=== PATIENT | female | born 1950 | race Caucasian/White ===

== ENCOUNTER 2024-07-25 09:44 | Outpatient (RCR) | payer MEDICARE, SELFPAY | END 2024-07-25 19:00 | disposition home or self-care (01) | LOC: PT 09:44 | PROVIDERS: PCP Nurse Practitioner; Visit Provider Nurse Practitioner | DX: M51.369 Other intervertebral disc degeneration, lumbar region without mention of lumbar back pain or lower extremity pain (principal) | CPT/HCPCS: 97010; 97014; 97110; 97140; 97162 ==

== ENCOUNTER 2024-07-26 08:05 | Outpatient (RCR) | payer MEDICARE, SELFPAY | END 2024-12-20 07:45 | disposition home or self-care (01) | LOC: PT 08:05 | PROVIDERS: PCP Nurse Practitioner; Visit Provider Nurse Practitioner | DX: M51.369 Other intervertebral disc degeneration, lumbar region without mention of lumbar back pain or lower extremity pain (principal); M54.2 Cervicalgia | CPT/HCPCS: 97010; 97012; 97110; 97113; 97140; G0283 ==

== ENCOUNTER 2025-06-29 10:30 | Outpatient (OUT) | payer MEDICARE, SELFPAY ==
--- OUTSIDE RECORDS SUMMARY | 2025-06-29 10:37 | XMS_ITS | CCD ---
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 Unavailable Unavailable Noonan, Shaylee T. Unavailable Unavailable Noonan, Shaylee T. Unavailable Unavailable CEDILLO, DANILO Unavailable Unavailable CEDILLO, DANILO Unavailable Unavailable CEDILLO, DANILO Unavailable Unavailable CEDILLO, DANILO Unavailable Unavailable Noonan, Shaylee T. Unavailable Unavailable Noonan, Shaylee T. Unavailable Unavailable Noonan, Shaylee T. Unavailable Unavailable CEDILLO, DANILO Unavailable Unavailable Noonan, Shaylee T. Unavailable Unavailable Noonan, Shaylee T. Unavailable Unavailable Noonan, Shaylee T. Unavailable Unavailable CEDILLO, DANILO Unavailable Unavailable CEDILLO, DANILO J Referring Unavailable CEDILLO, DANILO J Primary Care Unavailable Cedillo DIE GRINDER-ROCK CLIMBING INSTRUCTOR, Danilo J Primary Care Provid er Cedillo DIE GRINDER-ROCK CLIMBING INSTRUCTOR, Danilo Sonia Primary Care Provid er Cedillo RETAIL EQUIPMENT ASSOCIATE, Danilo Unavailable Daksha Moon MD Primary Care Provider [phone] Daksha Moon DO Primary Care Provider Jacqueline Avila APRN Attending Provider Daksha Moon DO Primary Care Provider [phone] Daksha Moon MD Primary Care Provider HEMANTH MAXWELL Attending Unavailable FAMILIA CEDILLOERIE J Referring Unavailable CEDILLOFAMILIA BROWNERIE J Primary Care Unavailable DANILO CEDILLO J Attending Unavailable CEDILLOFAMILIA BROWNERIE J Referring Unavailable CEDILLO, DANILO J Primary Care Unavailable CEDILLOLENNY BROWNE J Attending Unavailable CEDILLO, DANILO J Referring Unavailable CEDILLO, DANILO J Primary Care Unavailable DAKSHA MOON Attending Unavailable DANILO CEDILLO Referring Unavailable DAKSHA MOON Primary Care Unavailable DAKSHA MOON Attending Unavailable YUDARENSDAKSHA Referring Unavailable YUHAS, DAKSHA Miller Primary Care Unavailable CEDILLODANILO Referring Unavailable YUHAS, DAKSHA Miller Primary Care Unavailable CEDILLO, DANILO J Referring Unavailable CEDILLO, DANILO J Primary Care Unavailable CEDILLO, DANILO J Referring Unavailable CEDILLO, DANILO J Primary Care Unavailable SAMANTHA ZAMARRIPA Attending Unavailable CEDILLO, DANILO J Referring Unavailable CEDILLO, DANILO J Primary Care Unavailable CEDILLO, DANILO J Referring Unavailable CEDILLO, DANILO J Primary Care Unavailable DALLIN, SINGH N Referring Unavailable YUHAS, DAKSHA Miller Primary Care Unavailable YUDAKSHA STEVENS Attending Unavailable YUHAS, DAKSHA Miller Referring Unavailable YUHAS, DAKSHA Miller Primary Care Unavailable DALLIN, SINGH N Referring Unavailable YUHAS, DAKSHA Miller Primary Care Unavailable DALLIN, SINGH N Referring Unavailable YUHAS, DAKSHA Miller Primary Care Unavailable Libans Daksha RENEE Primary Care Provider [phone] SHAYLEE NOONAN Referring Unavailable NOONAN, SHAYLEE Moore Referring Unavailable SHAYLEE NOONAN Attending Unavailable EDY ANDREWS Attending Unavailable PRIYANK VANCE Referring Unavailable TIMMIEDY Wall Referring Unavailable TIMEDY DAVIS Attending Unavailable Allergies Allergy ClassificationReported Allergen(s)Allergy TypeDate of OnsetReaction(s) Facility (1 source)Bee/Wasp/Ant venom; Translations: [Bee Stings]Propensity to adverse reactions (disorder)[facility] (1 source)Cat; Translations: [Cats]Propensity to adverse reactions (disorder) [facility] (1 source)cimetidine; Translations: [Tagamet]Drug AllergyBl[facility] (20 sources)ibuprofen; Translations: [ibuprofen]Drug Kngtdlz66-55-0886Hprxt, RashBlanchard Valley Health System [facility] (17 sources)oxytetracycline; Translations: [Terramycin]Drug Janilxn55-34-4756 [facility] (19 sources)Shrimp product; Translations: [Shrimp]Propensity to adverse reactions (disorder)88-98-2686Hgmlrv, Syncope, GI DisturbanceBlanchard Valley Health System [facility] (1 source)Sulfonamides (Antibiotic); Translations: [sulfa drugs]Propensity to adverse reactions (disorder)[facility] (17 sources)almond allergenic extract; Translations: [ALMOND]Drug Allergy 73-73-3030NjsuuhlfZioVkzyth Repository (20 sources)Cimetidine; Translations: [CIMETIDINE]Drug Iebsipw16-07-8016Mjaib, Itching, RashPro[facility]ica Rep[facility] (18 sources)Ketorolac; Translations: [KETOROLAC]Drug Uznifzu16-09-6975Dqlvu, Itching, RashProMedica Repository (20 sources)Oxytetracycline; Translations: [OXYTETRACYCLINE]Drug Allergy 32-53-2560Dfrzeqe ReactionProMedica RepositoryComment on above:as a child (17 sources)Ragweed pollen; Translations: [RAGWEED POLLEN]Propensity to adverse reactions to drug (disorder)09-17-9480Eprae (See Comments)[facility] (13 sources)Shellfish; Translations: [SHELLFISH DERIVED]Propensity to adverse reactions to food (disorder)06-77-3715QwaHnijzd Repository (17 sources)Sulfonamides (Antibiotic); Translations: [SULFA (SULFONAMIDE ANTIBIOTICS)]Propensity to adverse reactions to drug (disorder)82-60-6087Bgfgw [facility] (16 sources)BEE VENOM PROTEIN (HONEY BEE); Translations: [BEE VENOM PROTEIN (HONEY BEE)]Propensity to adverse reactions to drug (disorder)07-08-2020 Shortness Of BreathPro[facility]ica Repository (19 sources)CAT DANDER; Translations: [CAT DANDER]Propensity to adverse reactions to drug (disorder)71-47-2001Ycoyieudj Of BreathProMedica Repository (20 sources)ALMOND OIL; Translations: [ALMOND OIL]Propensity to adverse reactions to food (disorder)10-60-6407PevxsqknVpyQobfzo Repository (8 sources)Honey bee venomPropensity to adverse psibycpsr93-52-2751Wnxslfkyc of breathNOMS Healthcare (8 sources)Shrimp productPropensity to adverse wqvmzalib78-82-7747Fwsfld Only [facility] (8 sources)Sulfonamides (Antibiotic)Drug Oxxbqhgpaio02-30-0122JhcxlNRDJ Healthcare (8 sources)Flavoring Agent (Non-Screening)Allergy to niuxiosas20-23-1282QZAF Healthcare (5 sources)Shellfish-Derived ProductsDrug Zifiwaa71-15-4447UKWA [facility] (1 source)venom-honey beeAllergy to -58-9558Bqsjydlevb Breathing [facility] (3 sources)Shellfish Protein-Containing Drug ProductsDrug Vopecub51-10-0796WMLV Healthcare Medications Current Medications MedicationDrug Class(es)DatesSig (Normalized)Sig (Original)albuterol 0.83 mg/ml inhalation solution (20 sources)beta2-Adrenergic AgonistStart: 73-47-7804khkc 2.5 mg by inhalation every four to six hours as neededAlbuterol Sulfate 2.5 mg /3 mL (0.083 %) solution for nebulization Active 2.5 MG INHALATION EVERY 4-6 HOURS as needed March 28, 2025 12:00am Complies with drug therapyStart: 41-39-7473cbjl 1 puff(s) by inhalation every six hours as neededAlbuterol Sulfate 90 mcg/actuation HFA aerosol inhaler Active 2 PUFF INHALATION Every 6 hours as nee ded March 28, 2025 12:00am Complies with drug therapyStart: 86-68-3412fczz 2 puff(s) by inhalation every six hours as needed for wheezingalbuterol (PROVENTIL HFA;VENTOLIN HFA) 90 mcg/actuation inhaler Indications: Moderate persistent asthma with allergic rhinitis without complication Inhale 2 puffs every 6 (six) hours as needed for wheezing or shortness of breath. 18 g 6 10/30/2024 ActiveStart: 12-14-2023 End: 17-25-9304fxzb 3 mL by inhalation every four hours as needed for wheezing albuterol (PROVENTIL,VENTOLIN) 2.5 mg /3 mL (0.083 %) nebulizer solution Indications: Moderate persistent allergic asthma Inhale 3 mL (2.5 mg total) by nebulization every 4 (four) hours as needed forwheezing or shortness of breath. 150 mL 2 12/14/2023 05/07/2025 Discontinued (Therapy completed)Start: 11-22-2023 End: 03-84-3596sosj 2 puff(s) by mouth every six hours as needed for wheezing albuterol (PROVENTIL HFA;VENTOLIN HFA) 90 mcg/actuation inhaler Indications: Moderate persistent asthma with allergic rhinitis without complication INHALE 2 PUFFS BY MOUTH EVERY 6 HOURS NEEDED FORWHEEZING and SHORTNESS OF BREATH 18 g 6 11/22/2023 10/30/2024 Discontinued (Reorder)Start: 71-03-4296oadkgepoa HFA 90 mcg/act inhaler 07/16/2022 Activeamoxicillin 500 mg oral capsule (2 sources)Penicillin-class AntibacterialStart: 08-31-2024 End: 72-18-2046mska 1 capsule by mouth in the morning, then take 1 capsule by mouth at bedtimeamoxicillin (AMOXIL) 500 mg capsule Take 1 capsule (500 mg total) by mouth in the morning and 1 capsule (500 mg total) before bedtime. Do all this for 10 days. 20 capsule 08/31/2024 09/10/2024 Activeamoxicillin 875 mg / clavulanate 125 mg oral tablet (11 sources)Penicillin-class AntibacterialStart: 04-17-2025 End: 28-62-3139selz 1 tablet by mouth in the morningamoxicillin-clavulanate (Augmentin) 875-125 MG tablet Indications: Chronic maxillary sinusitis , Chronic ethmoidal sinusitis Take 1 tablet (875 mg) by mouth in the morning and 1 tablet (875 mg) before bedtime. 60 tablet 04/17/2025 05/23/2025 Discontinued (Therapy completed)Start: 04-17-2025 End: 07-99-0474gfyd 1 tablet by mouth once in the morningamoxicillin-pot clavulanate (AUGMENTIN) 875-125 mg per tablet Take 1 tablet by mouth in the morningand 1 tablet before bedtime. 04/17/2025 05/17/2025 ActiveStart: 03-28-2025 End: 19-64-6876dfav 1 tablet by mouth onceamoxicillin-pot clavulanate (AUGMENTIN) 875-125 mg per tablet Take 1 tablet by mouth. 03/28/2025 04/04/2025 Discontinued (Therapy completed)Start: 94-88-0954iosm 1 tablet by mouth every twelve hoursAmoxicillin-Pot Clavulanate 875-125 mg tablet Active 1 TAB PO Every 12 hours 05 02March 28, 2025 12:00am Complies with drug therapyStart: 09-12-2024 End: 02-64-0762jwam 1 tablet by mouth once in the morningamoxicillin-pot clavulanate (AUGMENTIN) 875-125 mg per tablet Indications: Acute non-recurrent maxillary sinusitis Take 1 tablet by mouth in the morning and 1 tablet before bedtime. Do all this for 7days. 14 tablet 09/12/2024 09/19/2024 Activeazelastine hydrochloride 0.137 mg/actuat metered dose nasal spray (9 sources)Histamine-1 Receptor AntagonistStart: 56-42-7445khze 2 spray(s) nasal route in the morningazelastine (Astelin) 0.1 % nasal spray Administer 2 sprays into affected nostril(s) in the morning and 2 sprays in the evening. 04/04/2025 ActiveStart: 04-04-2025 End: 70-23-0936pnsa 2 spray(s) nasal route in the morningazelastine (ASTELIN) 137 mcg (0.1 %) nasal spray Indications: Chronic pansinusitis Administer 2 spra ys into each nostril in the morning and 2 sprays before bedtime. Use in each nostril as directed. 30 mL 2 04/04/2025 05/07/2025 Discontinued (Therapy completed)bempedoic acid 180 mg / ezetimibe 10 mg oral tablet (5 sources)Dietary Cholesterol Absorption InhibitorStart: 00-95-3050sjci 1 tablet by mouth in the morningBempedoic Acid-Ezetimibe (Nexlizet) 180-10 MG tablet Take 1 tablet by mouth in the morning. 05/07/2025 Activecalcium carbonate 1250 mg / cholecalciferol 200 unt oral tablet (17 sources)Vitamin D End: 81-77-9918owjm 1 tablet by mouth once in the morning, then take 1 tablet by mouth once at mealtimeCalcium Carbonate-Vitamin D (Oyster Shell Calcium/D) 500-5 MG-MCG tablet Take 1 tablet by mouth in the morning and 1 tablet in the evening. Take with meals. 05/23/2025 Discontinued (Therapy completed)cetirizine hydrochloride 10 mg oral tablet (10 sources)Histamine-1 Receptor AntagonistStart: 04-17-2025 End: 09-40-5763ipop 1 tablet by mouth once daily as neededcetirizine (ZyrTEC) 10 MG tablet Indications: Chronic maxillary sinusitis , Chronic ethmoidal sinusitis Take 1 tablet (10 mg) by mouth Daily as needed for allergies 30 tablet 11 04/17/2025 04/17/2026ctiveciclopirox 80 mg/ml topical solution (2 sources)Start: 07-15-2023 End: 86-94-4946knrsroumzy (Penlac) 8 % solution Apply 1 Application topically at bedtime 07/15/2023 02/23/2025 Dmfseovrjvxi48 hr clarithromycin 500 mg extended release oral tablet (1 source)Macrolide AntimicrobialStart: 04-05-2025 End: 39-50-4781zqxf 2 tablets by mouth every twenty-four hours in the morning clarithromycin XL (BIAXIN XL) 500 mg 24 hr tablet Indications: Chronic pansinusitis Take 2 tablets (1,000 mg total) by mouth in the morning for 7 days. 14 tablet 04/05/2025 04/12/2025 Activedoxycycline hyclate 100 mg oral capsule (7 sources)Tetracycline-class DrugStart: 04-04-2025 End: 45-54-4363gxnd 1 capsule by mouth in the morning, then take 1 capsule by mouth at bedtimedoxycycline (VIBRAMYCIN) 100 mg capsule Indications: Chronic pansinusitis Take 1 capsule (100 mg total) by mouth in the morning and 1 capsule (100 mg total) before bedtime. Do all this for 7 days. 14capsule 04/04/2025 04/11/2025 Activedoxycycline (Vibramycin) 100 MG capsule Take 100 mg by mouth in the morning and 100 mg before bedtime. Take with at least 8 ounces (large glass) of water, do not lie down for 30 minutes after. Activefluticasone propionate 0.05 mg/actuat metered dose nasal spray (20 sources)CorticosteroidStart: 04-17-2025 End: 74-47-8280hwwh 2 spray(s) nasal route once dailyfluticasone (Flonase) 50 MCG/ACT nasal spray Indications: Chronic maxillary sinusitis , Chronic ethmoidal sinusitis Administer 2 sprays into each nostril Daily Shake gently. Before first use, prime pump. After use, clean tip and replace cap. 48 g 3 04/17/2025 04/17/2026 ActiveStart: 10-87-0000jjrl 1 spray(s) nasal route once daily Fluticasone Propionate (Flonase Allergy Relief) 50 mcg/actuation spray,suspension Active 1 SPRAY INTRANASAL Daily March 28, 2025 12:00am administer into each nostril Complies with drug therapyStart: 05-69-5891omlo 1 spray(s) nasal route in the morningfluticasone propionate (FLONASE) 50 mcg/actuation nasal spray Indications: Chronic allergic rhinitis due to pollen Administer 1 spray into each nostril in the morning. 16 g 6 03/11/2022 Active End: 94-20-8973alec 1 spray(s) nasal route once dailyfluticasone (Flonase) 50 MCG/ACT nasal spray Administer 1 spray into each nostril Daily Shake gently. Before first use, prime pump. After use, clean tip and replace cap. 04/17/2025 Bysxtmixzgzb77 actuat fluticasone furoate 0.1 mg/actuat / umeclidinium 0.0625 mg/actuat / vilanterol 0.025 mg/actuat dry powder inhaler (20 sources)Anticholinergic, Corticosteroid, beta2-Adrenergic AgonistStart: 04-04-2025 End: 28-22-3349afbz 1 puff(s) by inhalation in the morning Utziaywcbbw-Xbyrcorgl-Hpyrvn (Trelegy Ellipta) 100-62.5-25 MCG/ACT aerosol powder Inhale 1 puff in the morning. 04/04/2025 ActiveStart: 12-14-2023 End: 36-00-7944rhjy 1 puff(s) by inhalation once daily odvudwhlfhh-toquinecb-fqjfjzzp (TRELEGY ELLIPTA) 100-62.5-25 mcg blister with device Indications: Moderate persistent asthma with allergic rhinitis without complication Inhale 1 puff once daily. 1 each 10/30/2024 04/04/2025 Discontinued Start: 03-15-2023 End: 38-03-4310oqas 1 puff(s) by inhalation in the morning Jqdhwnlgtbr-Zyoquoosl-Wpdxam (Trelegy Ellipta) 100-62.5-25 MCG/ACT aerosol powder Inhale 1 puff in the morning. 03/15/2023 02/23/2025 Discontinued kieticirhuf-uchoeecrz-wwuraocj (TRELEGY ELLIPTA) 200-62.5-25 mcg blister with device (3 sources)Start: 75-72-4005cxim 1 puff(s) by inhalation in the morning eqkhwhfeolj-bjzmmlswt-lxxzauge (TRELEGY ELLIPTA) 200-62.5-25 mcg blister with device Indications: Moderate persistent allergic asthma Inhale 1 puff in the morning. 14 each 05/07/2025 ActivemethylPREDNISolone (3 sources)CorticosteroidStart: 09-12-2024 End: 84-83-9398oyatlvVHDVOYKmketz (MEDROL, SUJATHA,) 4 mg tablet Indications: Acute non-recurrent maxillary sinusitis follow package directions 21 tablet 09/12/2024 10/30/2024 Discontinued (Therapy completed)Start: 17-54-4965ybyrevSEOEJNOforhr (MEDROL, SUJATHA,) 4 mg tablet Indications: Acute non-recurrent maxillary sinusitis follow package directions 21 tablet 09/12/2024 Activemontelukast 10 mg oral tablet (20 sources)Leukotriene Receptor AntagonistStart: 10-15-2022 End: 48-62-7850mafy 1 tablet by mouth at bedtimemontelukast (Singulair) 10 MG tablet Take 10 mg by mouth at bedtime 10/15/2022 Activenystatin 227322 unt/ml oral suspension (4 sources)Polyene AntifungalStart: 05-07-2025 End: 06-11-0354rcdn 5 mL by mouth once daily at bedtimenystatin (MYCOSTATIN) 100,000 unit/mL suspension Indications: Thrush, oral Swish and Swallow 5 (FIVE) mls BY MOUTH EVERY MORNING, at noon, EVERY EVENING, & BEFORE bedtime FOR 7 DAYS 140 mL 1 05/07/2025 05/14/2025 ActiveStart: 05-07-2025 End: 63-92-5396fkrowrlg (MYCOSTATIN) 100,000 unit/mL suspension Indications: Thrush, oral Take 5 mL (500,000 Unitstotal) by mouth in the morning and 5 mL (500,000 Units total) at noon and 5 mL (500,000 Units total) in the evening and 5 mL (500,000 Units total) before bedtime. Do all this for 7 days. Swish in mout h then swallow. 60 mL 1 05/07/2025 05/07/2025 DiscontinuedpredniSONE 20 mg oral tablet (5 sources)Start: 04-17-2025 End: 63-15-1320xren 1 tablet by mouth in the morningpredniSONE (Deltasone) 20 MG tablet Indications: Chronic maxillary sinusitis , Chronic ethmoidal sinusitis Take 1 tablet (20 mg) by mouth in the morning and 1 tablet (20 mg) before bedtime. Do all this for 6 days. 12 tablet 04/17/2025 04/23/2025 ActiveStart: 95-27-6514zpre 2 tablets by mouth once dailyPrednisone 20 mg tablet Active 20 MG PO .COMPLEX March 28, 2025 12:00am Take 2 tabs po daily x 5 days Complies with drug therapyStart: 05-26-2023 End: 43-66-6189ruiy 1 tablet by mouth in the morningpredniSONE (Deltasone) 20 MG tablet Take 20 mg by mouth in the morning. 05/26/2023 02/23/2025 Discontinued rosuvastatin calcium 5 mg oral tablet (20 sources)HMG-CoA Reductase InhibitorStart: 03-15-2023 End: 36-38-1260xkda 1 tablet by mouth in the morningrosuvastatin (Crestor) 5 MG tablet Take 5 mg by mouth in the morning. 03/15/2023 05/23/2025 Discontinued (Therapy completed)sertraline 100 mg oral tablet (20 sources)Serotonin Reuptake InhibitorStart: 03-15-2023 End: 31-59-3495onhs 1 tablet by mouth in the morningsertraline (Zoloft) 100 MG tablet Take 100 mg by mouth in the morning. 03/15/2023 Activesod bicarb-sod chlor-neti pot (NEILMED NASAFLO) (3 sources)sod bicarb-sod chlor-neti pot (NEILMED NASAFLO) Administer 1 packet into each nostril as needed. Active Completed/Discontinued Medications MedicationDrug Class(es)DatesSig (Normalized)Sig (Original)ascorbic acid 100 mg oral tablet (13 sources)Vitamin C End: 43-68-2316acob 5 tablets by mouth in the morningascorbic acid (Vitamin C) 100 MG tablet Take 500 mg by mouth in the morning. 04/16/2025 Discontinued (Therapy completed)betamethasone 0.5 mg/ml / clotrimazole 10 mg/ml topical cream (11 sources)Azole Antifungal, CorticosteroidStart: 11-02-2022 End: 22-35-8718yymvifyzwzlh-betamethasone (LOTRISONE) cream Indications: Atopic dermatitis, unspecified type Apply1 Application topically in the morning and 1 Application before bedtime. 45 g 2 11/02/2022 04/04/2025 Discontinued (Patient Stopped On Own)Start: 11-02-2022 End: 87-23-6091egwnmfkkqfql-betamethasone (Lotrisone) cream Apply 1 application topically in the morning and 1 application in the evening. 11/02/2022 02/23/2025 Discontinuedgabapentin 100 mg oral capsule (14 sources)Anti-epileptic AgentStart: 03-15-2023 End: 24-41-8695dbpgndydwm (Neurontin) 100 MG capsule Take 100 mg by mouth See administration instructions. 03/15/2023 04/16/2025 Discontinued (Therapy completed) Problems Active Problems Problem ClassificationProblemDateDocumented DateEpisodic/ChronicAsthma (20 sources)Mild intermittent asthma; Translations: [Mild intermittent asthma, uncomplicated]Onset: 309217-20-6763SvlkphcNzkvfj of breast (20 sources)Intraductal carcinoma in situ of right breast; Translations: [Intraductal carcinoma in situ of right breast]Onset: ChronicCancer of breast (3 sources)History of malignant neoplasm of breast; Translations: [Personal history of malignant neoplasm of breast]Onset: 783636-57-1638Ujmljeuv Diabetes mellitus without complication (1 source)Impaired fasting glycemia; Translations: [Impaired fasting glucose] 27-53-7135RgbagomiYeqemtisn of lipid metabolism (5 sources)Mixed hyperlipidemia; Translations: [Mixed hyperlipidemia]Onset: 291188-82-7914KpdyxryOxhemthynaxzvy and diverticulitis (20 sources)Diverticulosis of sigmoid colon; Translations: [Diverticulosis of large intestine without perforation or abscess without bleeding]Onset: 412251-78-5089DtrmtgxVcqa disorders (20 sources)Moderate recurrent major depression; Translations: [Major depressive disorder, recurrent, moderate]Onset: 11-03-2017 Resolved: 364264-36-4972ZlzbdwhOtdargl (3 sources)Candidiasis of mouth; Translations: [Candidal stomatitis]Onset: 876910-34-1558DorzkbhvStvtmmpocraita (20 sources)Arthritis; Translations: [Unspecified osteoarthritis, unspecified site]Onset: 688174-17-0590GitceynKlief connective tissue disease (20 sources)Artificial knee joint present; Translations: [Presence of unspecified artificial knee joint]Onset: 385575-42-6610KzszrtzLpuze ear and sense organ disorders (20 sources)Chronic non-infective otitis externa; Translations: [Other otitis externa, bilateral]Onset: 141952-89-2063LcpttsbRfuzr ear and sense organ disorders (20 sources)Sensorineural hearing loss, bilateral; Translations: [Sensorineural hearing loss, bilateral]Onset: 805789-61-1199DvewnieFepzz ear and sense organ disorders (8 sources)Asymmetrical sensorineural hearing loss; Translations: [Sensorineural hearing loss, bilateral]Onset: 133264-42-3431GlfphvhKwbiu ear and sense organ disorders (8 sources)Chronic otitis externa; Translations: [Unspecified chronic otitis externa, unspecified ear]Onset: 165689-93-2086IghhfoaUffzu nutritional; endocrine; and metabolic disorders (20 sources)Morbid obesity; Translations: [Morbid (severe) obesity due to excess calories]Onset: 420339-42-9125JzskcduSygeb nutritional; endocrine; and metabolic disorders (1 source)Morbid (severe) obesity due to excess calories; Translations: [Morbid (severe) obesity due to excess calories]Onset: 22-08-2209LmranthCaahp nutritional; endocrine; and metabolic disorders (1 source)Personal history of other endocrine, nutritional and metabolic disease; Translations: [Personal history of other endocrine, nutritional and metabolic disease]Onset: 37-24-1238CkyvycllYiyfz screening for suspected conditions (not mental disorders or infectious disease) (1 source)Encounter for screening for diabetes mellitus; Translations: [Encounter for screening for diabetes mellitus]Onset: 32-43-3737GwdfrcymRqehx upper respiratory disease (20 sources)Allergic rhinitis; Translations: [Allergic rhinitis, unspecified] Onset: 851869-56-5814ZpcosbaDkfkz upper respiratory disease (3 sources)Seasonal allergy; Translations: [Other seasonal allergic rhinitis] Onset: 119644-11-1573JabslujAbvmq upper respiratory disease (6 sources)Deviated nasal septum; Translations: [Deviated nasal septum] 72-12-8582LqvhbivrDvhmz upper respiratory infections (14 sources)Chronic pansinusitis; Translations: [Chronic pansinusitis]Onset: 564213-53-4131VgwnogoHtwyx upper respiratory infections (6 sources)Acute maxillary sinusitis; Translations: [Acute maxillary sinusitis, unspecified]Onset: 602912-75-3043WxkukxhyJjtoenis codes; unclassified (1 source)Viral syndrome; Translations: [Other general symptoms and signs] 16-74-7284BskoyspwIuiccseqver; intervertebral disc disorders; other back problems (20 sources)Degeneration of lumbar intervertebral disc; Translations: [Degeneration of intervertebral disc of lumbar region without discogenic back pain or lower extremity pain]Onset: 305325-35-1710VqteluuIzcjjpk disorders (1 source)Hypothyroidism; Translations: [Hypothyroidism, unspecified]04-04-2025 ChronicUnclassified (1 source)Recheck sinus/ breathingOnset: 77-90-0088Xpsusxtmbsbv (1 source)Sinus ProblemOnset: 08-31-2024 Past or Other Problems Problem ClassificationProblemDateDocumented DateEpisodic/ChronicMood disorders (13 sources)Mood disordersOnset: 05-01-2024 Resolved: Other connective tissue disease (20 sources)Neuropathic pain; Translations: [Neuralgia and neuritis, unspecified]Onset: 232267-73-3418ViwkrmztEmdhm connective tissue disease (20 sources)Fibromyalgia; Translations: [Fibromyalgia]Onset: 05-03-2019 74-52-6859TgtxuiimGgljb connective tissue disease (1 source)Neuralgia and neuritis, unspecified; Translations: [Neuralgia and neuritis, unspecified]Onset: 24-33-4308JkmswwgcJpjdo connective tissue disease (1 source)Fibromyalgia; Translations: [Fibromyalgia]Onset: 29-51-8229Vqvjeqcj Other ear and sense organ disorders (20 sources)Bilateral tinnitus; Translations: [Tinnitus, bilateral]Onset: 476041-36-5872FdrbledhAexek ear and sense organ disorders (8 sources)Otalgia, left ear; Translations: [Otalgia, unspecified]Onset: 782685-97-7833QielyowjFoodz lower respiratory disease (20 sources)Snoring; Translations: [Snoring]Onset: 066042-13-3356Cmzsdtfj Other lower respiratory disease (13 sources)Other nonspecific abnormal finding of lung field; Translations: [Other nonspecific abnormal findingof lung field]Onset: 01-16-2021 Resolved: 399646-12-6133BixuhghiEtvpt non-traumatic joint disorders (20 sources)Chronic pain of right upper limb; Translations: [Pain in right shoulder]Onset: 972590-23-6617DumyutedZswxojwf codes; unclassified (1 source)Other general symptoms and signs; Translations: [Other general symptoms and signs]Onset: 74-63-4283HjgjhpwnWvetonhtevx; intervertebral disc disorders; other back problems (20 sources)Neck pain; Translations: [Cervicalgia]Onset: EpisodicUnclassified (13 sources)Onset: 05-01-2024 Resolved: Results Test NameValueInterpretationReference RangeFacilityCT MAXILLOFACIAL BONES WO IV CONTRASTon [id number] MAXILLOFACIAL BONES WO IV CONTRASTCT Brain. Contrast medium: without contrast.. History: Chronic maxillary sinusitis.. Technical factors: CT maxillofacial was obtained and formatted as contiguous axial images. [place] coronal reconstruction obtained during postprocessing. Comparison: None. Findings: Bilateral frontal sinuses patent. Bilateral ethmoid sinuses patent. Small bilateral air-fluid levels, maxillary sinuses. Bilateral sphenoid sinuses patent. Mastoid air cells well pneumatized bilaterally. Nasal septum midline. Bilateral ostiomeatal complexes patent. Bilateral ocular globes, extraocular muscles, optic nerves, retrobulbar fat without anomaly. IMPRESSION: Impression: Bilateral maxillary sinusitis. All CT scans at this facility use dose modulation, iterative reconstruction, and/or weight based dosing when appropriate to reduce radiation dose to as low as reasonably achievable. ELECTRONICALLY SIGNED BY: Ilya Whitfield MDNojoealNot AvailableComment on above:Order Comment: [employer] CT Sinus WO at [facility] in 30 Days. Has FU appt 05/23. Please call patient to schedule.MAMM SCREENING BILATERAL W CADon [id number] SCREENING BILATERAL W CADMAMM SCREENING BILATERAL W CAD SVETLANA DAVIS 1950 [id number] EXAM: MAMM SCREENING BILATERAL W CAD, 05/07/2025 8:47 AM CLINICAL INDICATIONS: Screening, Ductal carcinoma in situ (DCIS) of right breast COMPARISON: 05/04/2024 and priors TECHNIQUE: Bilateral digital tomosynthesis MLO and CC views of the breasts were obtained, with creation of synthetic 2D views. Computer aided detection was utilized. FINDINGS: There are scattered areas of fibroglandular density. Stable postsurgical changes right breast. Negative for malignancy. IMPRESSION: No mammographic evidence of malignancy. BI-RADS: BI-RADS 2 - Benign RECOMMENDATION: Routine screening mammogram in 1 year. RISK ASSESSMENT: Tyrer-Cuzick score not calculated. The TC risk model does not apply to patients with a personal history of breast malignancy, those over the age of 84, male, or transgender patients. Finalized by Raul Madrid MD on 05/08/2025 10:38 AM 2 b MAMM 1 YRNormalProMedica [facility] WITH AUTO DIFFERENTIALon 04-12-2025 BASOPHILS ABSOLUTE COUNT (10*3/UL) BY AUTOMATED COUNT0.1 10*3/uLNormal0.0-0.2 [facility] San FranciscoComment on above:Performed By: #### CBCA #### [facility] (TT) [address] [place] [address] VIRBASOPHILS RELATIVE PERCENT BY AUTOMATED COUNT1.0 %Normal [facility] HospitalComment on above:Performed By: #### CBCA #### [facility] ([facility]) [address] [place] [address] VIRCELLAVISION DIFFERENTIAL TYPEAUTOMATED DIFFERENTIALNormal [facility] HospitalComment on above:Performed By: #### CBCA #### [facility] ([facility]) [address] [place] [address] VIREosinophils (Bld) [#/Vol]0.2 10*3/uLNormal0.0-0.4[facility] City HospitalComment on above:Performed By: #### CBCA #### [facility] ([facility]) [address] [place] [address] VIREOSINOPHILS RELATIVE PERCENT BY AUTOMATED COUNT2.6 %Normal [facility] HospitalComment on above:Performed By: #### CBCA #### [facility] ([facility]) [address] [place] [address] VIRErythrocyte distribution width (RBC) [Ratio]14.2 %Normal 11.5-15[facility] City HospitalComment on above:Performed By: #### CBCA #### [facility] ([facility]) [address] [place] [address] VIRHematocrit (Bld) [Volume fraction]42.4 %Jwfhok37-33SajOnhhkyFostoria City HospitalComment on above:Performed By: #### CBCA #### [facility] ([facility]) [address] [place] [address] VIRHemoglobin (Bld) [Mass/Vol]14.2 g/rCBnrysn33.7-15.5PSelect Medical Specialty Hospital - ColumbusComment on above:Performed By: #### CBCA #### [facility] ([facility]) [address] [place] [address] VIRLYMPHOCYTES ABSOLUTE COUNT (10*3/UL) BY AUTOMATED COUNT1.1 10*3/uLNormal1.0-3.5PSelect Medical Specialty Hospital - ColumbusComment on above:Performed By: #### CBCA #### [facility] ([facility]) [address] [place] [address] VIRLYMPHOCYTES RELATIVE PERCENT BY AUTOMATED COUNT18.2 %Normal [facility] HospitalComment on above:Performed By: #### CBCA #### [facility] ([facility]) [address] [place] [address] VIRMCH (RBC) [Entitic mass]29.4 dcUjdmvh93-68BzdCdwbkiFostoria City HospitalComment on above:Performed By: #### CBCA #### [facility] ([facility]) [address] [place] [address] VIRMCHC (RBC) [Mass/Vol]33.5 g/cHUymswc12-67LfpBswgrhFostoria City HospitalComment on above:Performed By: #### CBCA #### [facility] ([facility]) [address] [place] [address] VIRMCV (RBC) [Entitic vol]88 xRLydjaw44-628GwsDefhfa [facility] HospitalComment on above:Performed By: #### CBCA #### [facility] ([facility]) [address] [place] [address] VIRMONOCYTES ABSOLUTE COUNT (10*3/UL) BY AUTOMATED COUNT0.7 10*3/uLNormal0.0-0.9[facility] HospitalCompine rest christian mental health services on above:Performed By: #### CBCA #### [facility] ([facility]) [address] [place] [address] VIRMONOCYTES RELATIVE PERCENT BY AUTOMATED COUNT11.9 %Normal [facility] City HospitalComment on above:Performed By: #### CBCA #### [facility] ([facility]) [address] [place] [address] VIRNEUTROPHILS ABSOLUTE COUNT BY AUTOMATED COUNT4.1 10*3/uL Normal1.5-6.6F[facility] City HospitalComment on above:Performed By: #### CBCA #### [facility] ([facility]) [address] [place] [address] VIRNEUTROPHILS RELATIVE PERCENT BY AUTOMATED COUNT66.3 %Normal [facility] City HospitalComment on above:Performed By: #### CBCA #### [facility] ([facility]) [address] [place] [address] VIRPlatelet mean volume (Bld) [Entitic vol]8.8 fLNormal7-12 [facility] HospitalComment on above:Performed By: #### CBCA #### [facility] ([facility]) [address] [place] [address] VIRPlatelets (Bld) [#/Vol]172 10*3/mJXbelot893-556SwpMmmqjc [facility] HospitalComment on above:Performed By: #### CBCA #### [facility] ([facility]) [address] [place] [address] VIRRBC COUNT4.84 X10E12/LNormal3.8-5.2PSelect Medical Specialty Hospital - ColumbusComment on above:Performed By: #### CBCA #### [facility] ([facility]) [address] [place] [address] VIRWBC (Bld) [#/Vol]6.2 10*3/uLNormal4-11[facility] HospitalComment on above:Performed By: #### CBCA #### [facility] ([facility]) [address] [place] [address] VIRCOMPREHENSIVE METABOLIC PANELon 67-28-1721Njtqssi [Mass/Vol] 3.8 g/dLNormal3.2-5.3PSelect Medical Specialty Hospital - ColumbusComment on above:Performed By: #### CMP #### [facility] ([facility]) [address] [place] [address] VIRALP [Catalytic activity/Vol]74 U/IZagzlz14-789DpsKhsfhwHill Country Memorial HospitalComment on above:Performed By: #### CMP #### [facility] ([facility]) [address] [place] [address] VIRALT [Catalytic activity/Vol]15 U/LNormal<=31PSelect Medical Specialty Hospital - ColumbusComment on above:Performed By: #### CMP #### [facility] ([facility]) [address] [place] [address] VIRAnion gap [Moles/Vol]10 mmol/LNormal5-15ProHill Country Memorial HospitalComment on above:Performed By: #### CMP #### [facility] ([facility]) [address] [place] [address] VIRAST [Catalytic activity/Vol]18 U/LNormal<=41ProHill Country Memorial HospitalComment on above:Performed By: #### CMP #### [facility] ([facility]) [address] [place] [address] VIRBilirubin [Mass/Vol]0.9 mg/dLNormal0.3-1.2PSelect Medical Specialty Hospital - ColumbusComment on above:Performed By: #### CMP #### [facility] ([facility]) [address] [place] [address] VIRCalcium [Mass/Vol]9.4 mg/dLNormal8.5-10.5PSelect Medical Specialty Hospital - ColumbusComment on above:Performed By: #### CMP #### [facility] ([facility]) [address] [place] [address] VIRChloride [Moles/Vol]103 mmol/XKzkrfd79-264MtbHxxgovHill Country Memorial HospitalComment on above:Performed By: #### CMP #### [facility] ([facility]) [address] [place] [address] VIRCO2 [Moles/Vol]30 mmol/QTvuklk89-98HgrIumggn [facility] HospitalComment on above:Performed By: #### CMP #### [facility] ([facility]) [address] [place] [address] VIRCreatinine [Mass/Vol]1.00 mg/dLNormal0.40-1.00[facility] City HospitalComment on above:Result Comment: METHOD TRACEABLE TO IDMS STANDARDPerformed By: #### CMP #### [facility] ([facility]) [address] [place] [address] VIRGFR/1.73 sq M.predicted among non-blacks MDRD (S/P/Bld) [Vol rate/Area]60 mL/min/{1.73_m2}Normal>=60ProHill Country Memorial HospitalComment on above:Result Comment: Reported eGFR is based on the CKD-EPI 2020 equation that does not use a race coefficient.Performed By: #### CMP #### [facility] ([facility]) [address] [place] [address] VIRGlucose [Mass/Vol]112 mg/fIFwwx17-78UuoIorgvcHill Country Memorial HospitalComment on above:Performed By: #### CMP #### [facility] ([facility]) [address] [place] [address] VIRPotassium [Moles/Vol]4.7 mmol/LNormal3.5-5.0[facility] City HospitalComment on above:Performed By: #### CMP #### [facility] ([facility]) [address] [place] [address] VIRProtein [Mass/Vol]6.8 g/dLNormal6.0-8.0[facility] City HospitalComment on above:Performed By: #### CMP #### [facility] ([facility]) [address] [place] [address] VIRSodium [Moles/Vol]143 mmol/HWawcnm603-601NhoInidva Newport Coast HospitalComment on above:Performed By: #### CMP #### [facility] ([facility]) [address] [place] [address] VIRUrea nitrogen [Mass/Vol]15 mg/dLNormal5-27ProHill Country Memorial HospitalComment on above:Performed By: #### CMP #### [facility] ([facility]) [address] [place] [address] VIRHEMOGLOBIN A1Con 98-70-4475Zinaajk [Mass/Vol]114 mg/dLNormal [facility] San FranciscoComment on above:Performed By: #### HA1C #### [facility] ([facility]) [address] [place] [address] TQEWjL8u (Bld) [Mass fraction]5.6 %Normal4.4-5.6F[facility]oria City HospitalComment on above:Result Comment: ADA Guidelines Result HgbA1c Normal : less than 5.7 % Prediabetes : 5.7 % to 6.4 % Diabetes : > 6.4 % Use with caution in patients with abnormal hemoglobin variants as the half-life of red blood cells and in vivo glycation rates are affected.Performed By: #### HA1C #### [facility] ([facility]) [address] [place] [address] VIRLIPID PROFILEon 67-76-6241Pwtboevrqfy [Mass/Vol]210 mg/dL Rvtb113-854EwrRfvwmrHill Country Memorial HospitalComment on above:Performed By: #### LIPR #### [facility] ([facility]) [address] [place] [address] VIRCholesterol in HDL [Mass/Vol]42 mg/dLNormal>39ProHill Country Memorial HospitalComment on above:Result Comment: HDL <40 mg/dL - High Risk HDL > or = 40mg/dL- Desirable HDL >60 mg/dL - Negative RiskPerformed By: #### LIPR #### [facility] ([facility]) [address] [place] [address] VIRCholesterol in LDL [Mass/Vol]130 mg/dLHigh<130Fostoria City HospitalComment on above:Result Comment: LDL <100 mg/dL - Desirable LDL >160 mg/dL - High RiskPerformed By: #### LIPR #### [facility] ([facility]) [address] [place] [address] VIRCHOLESTEROL:HDL5.2Rkcozv1.0-5.0[facility] Comment on above:Performed By: #### LIPR #### [facility] ([facility]) [address] [place] [address] VIRTriglyceride [Mass/Vol]190 mg/mCEinf70-770UwpKmcfnnHill Country Memorial HospitalComment on above:Performed By: #### LIPR #### [facility] ([facility]) [address] [place] [address] VIRVERY LOW NAPXHHTJXQM12 mg/dLHigh0-30F[facility] City HospitalComment on above:Performed By: #### LIPR #### [facility] ([facility]) [address] [place] [address] VIRTSH WITH REFLEXon 67-76-2185SBG8.73 uIU/mLNormal0.49-4.67 [facility] City HospitalComment on above:Performed By: #### TSHR #### [facility] ([facility]) [address] [place] [address] VIRCT SINUSES WO CONTon 25-70-5805TA SINUSES WO CONTCT SINUSES WO CONT CLINICAL HISTORY:A 74-year-old female with a history of the chronic sinusitis. TECHNIQUE: Multidetector spiral CT scan of the paranasal sinuses is performed. Multiplanar reconstruction images are reformatted. COMPARISON: None available FINDINGS: There is some mucosal thickening in the both maxillary and ethmoidal and left sphenoidal sinuses consistent with chronic sinusitis. There is a air- fluid levels in the left maxillary sinus and lobulated area in the right maxillary sinus suggestive superimposed acute sinusitis. No aggressive bony destruction is seen. There is a hypertrophy of the inferior turbinates. Nasal septum is deviated to the right with nasalspur on the right side. No intraorbital soft tissue abnormality seen. Mastoid air cells are clear. IMPRESSION: 1. Chronic sinusitis involving both maxillary, few ethmoidal in the left sphenoidal sinuses. Air-fluid levels in the maxillary sinuses suggestive of superimposed acute sinusitis. 2. Hypertrophy of the inferior turbinates. 3. Rightward deviation of the nasal septum with nasal spur on the right side. All CT scans at this facility use dose modulation, iterative reconstruction, and/or weight based dosing when appropriate to reduce radiation dose to as low as reasonably achievable. Finalized by Royce Miller MD on 04/10/2025 10:17 [facility] Informationon [id number] Study observation (narrative) [facility] Knee - left 3 Viewson 89-01-7297Obkbaiy Result: Xrays taken in the office today saved to the permanent record, bilateral AP , sunrise and lateral weightbearing films, show stable position and alignment of the staggered bilateral TKA prosthesis. No sign of loosening, fracture or infection.[facility] Knee - right 3 Viewson 80-87-5997Gzvpxim Result: Xrays taken in the office today saved to the permanent record, bilateral AP , sunrise and lateral weightbearing films, show stable position and alignment of the staggered bilateral TKA prosthesis. No sign of loosening, fracture or infection.[facility] 3 VWS OR LESSon [id number] SPINE CERVICAL 3 VWS OR LESSXR SPINE CERVICAL 3 VWS OR LESS CLINICAL INFORMATION: Neck pain TECHNIQUE: XR SPINE CERVICAL 3 VWS OR LESS 5 views of the cervical spine were obtained. Moderate degenerative changes noted. There is no cervical malalignment or compression. Posterior elements appear intact. IMPRESSION: Moderate degenerative changes. Finalized by Víctor Castellanos MD on 11/01/2024 2:00 PMNormalFostoria City HospitalPOCT Influenza A/Influenza B/SARS-COV-2 Veritoron 97-22-9476Nnkweccg Poct Influenza A AntigenNegativeTogus VA Medical CenterExternal Poct Influenza B AntigenNegativeNovant Health Presbyterian Medical CenterARS-CoV-2 (COVID-19) Ag IA.rapid Ql (Resp)NegativeProSurgical Specialty Hospital-Coordinated HlthXR SPINE LUMBAR 2 OR 3 VWSon [id number] SPINE LUMBAR 2 OR 3 VWSXR SPINE LUMBAR 2 OR 3 VWS HISTORY: Pain TECHNIQUE: Frontal lateral and spot views of the lumbar spine were obtained. . COMPARISON: None. FINDINGS: There is multilevel disc space narrowing, most severe at L4-5 and L5- S1. Multilevel facetarthropathy and endplate osteophyte formation is also seen. The vertebral heights are well-maintained. There is no evidence for an acute osseous abnormality. Incidental note is made of a 1.2 cm nonobstructing left renal calculus.. IMPRESSION: * Multilevel disc space narrowing, most severe at L4-5 and L5-S1 * Multilevel facet arthropathy and endplate osteophyte formation * Nonobstructing left renal calculus.. Finalized by Iván Gomez MD on 07/13/2024 3:[address] Elizabeth [facility]stown HospitalXR SPINE THORACIC 3 VWSon [id number] SPINE THORACIC 3 VWSXR SPINE THORACIC 3 VWS HISTORY: A 74-year-old female with the history of the chronic upper and lower back pain. Primary osteoarthritis of the multiple joints. TECHNIQUE: Thoracic spine: 3 views COMPARISON: No relevant prior studies are available for comparison. FINDINGS: Vertebral heights are normal. There is no evidence of compression fracture, spondylolisthesis or acute bony pathology. There are degenerative changes in the thoracic spine with osteophytes and reduction of the disc spaces. Pedicles are intact. Costovertebral joints are intact. No significant paravertebral soft tissue abnormality seen. 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 * No evidence of fracture, spondylolisthesis or acute bony pathology. Finalized by Royce Miller MD on 07/13/2024 8:45 PMNCleveland Clinic [facility]ron [facility] AND AUTO DIFFon [id number] BASOPHIL0.1 X10E9/LNormal0.0-0.2 [facility] HospitalComment on above:Performed By: #### CBCA, [facility], [address]-2, 6-3, HA1C #### [facility] ([id number]) [address] [place], [place] [address]FAPQDGHV NEUTROPHIL4.6 X10E9/LNormal1.5-6.6ProPremier Health Atrium Medical Center HospitalComment on above:Performed By: #### CBCA, CMP, 21989-5, 6-3, HA1C #### [facility] ([id number]) [address] [place], [place] [address]Gipkftxus/100 WBC (Bld)1.1 %NormalProKettering Health Troy Comment on above:Performed By: #### CBCA, [facility], [address]-9, 3015-, HA1C #### [facility] ([id number]) [address] [place], [place] [address]Mdwlwnwzosl (Bld) [#/Vol]0.2 10*3/uLNormal0.0-0.4ProKettering Health TroyComment on above:Performed By: #### CBCA, [facility], [address]-5, 3015-, HA1C #### [facility] ([id number]) [address] [place], [place] [address]Kkazlyxaluv/100 WBC (Bld)3.2 %NormalProKettering Health Troy Comment on above:Performed By: #### CBCA, CMP, 74465-2, 3015-3, HA1C #### [facility] ([id number]) [address] [place], [place] [address]Imfmsvtbwfi distribution width (RBC) [Ratio]14.0 %Normal 11.5-15.0ProKettering Health TroyComment on above:Performed By: #### CBCA, CMP, 09529-9, 6-3, HA1C #### [facility] ([id number]) [address] [place], [place] [address]Xlkdizbgts (Bld) [Volume fraction]40.0 %Kadvpk95-85RcbZpddmx [place]edo HospitalComment on above:Performed By: #### CBCA, CMP, 02969-9, 3016-3, HA1C #### [facility] ([id number]) [address], [address] [place], [place] [address]Jmroabutdc (Bld) [Mass/Vol]13.7 g/eHPfujmp38.7-15.5[facility] HospitalComment on above:Performed By: #### CBCA, CMP, 08825-0, 6-3, HA1C #### [facility] ([id number]) [address], [facility] [address] [place], [place] [address]Osozmaxmxfm (Bld) [#/Vol]1.6 10*3/uLNormal1.0-3.5[facility] HospitalComment on above:Performed By: #### CBCA, CMP, 96438-6, 6-3, HA1C #### [facility] ([id number]) [address], [facility] [address] [place], [place] [address]Kkizuynlqwo/100 WBC (Bld)23.1 %NormalProPremier Health [facility] Hospital Comment on above:Performed By: #### CBCA, CMP, 66437-5, 6-3, HA1C #### [facility] ([id number]) [address], [address] [place], [place] [address]LOV (RBC) [Entitic mass]30.5 xpZjfulg72-79GndKvlhou [place] HospitalComment on above:Performed By: #### CBCA, CMP, 99628-9, 6-3, HA1C #### [facility] ([id number]) [address], [address] [place], [place] [address]EZHA (RBC) [Mass/Vol]34.2 g/vGCnyfkv31-10JelHuoawc [place] HospitalComment on above:Performed By: #### CBCA, CMP, 22574-3, 3016-3, HA1C #### [facility] ([id number]) [address], [address] [place], [place] [address]JZA (RBC) [Entitic vol]89 kKNbrhvn01-995UeqVlkjdm Greene HospitalComment on above:Performed By: #### CBCA, CMP, 76298-7, 3016-3, HA1C #### [facility] ([id number]) [address], [address] [place], [place] [address]Lqirnndko (Bld) [#/Vol]0.6 10*3/uLNormal0-0.9ProParkview Health Montpelier Hospitalca Greene HospitalComment on above:Performed By: #### CBCA, CMP, 59747-8, 6-3, HA1C #### [facility] ([id number]) [address], [address] [place], [place] [address]Lmfotdcep/100 WBC (Bld)7.8 %NormalBellevue Hospital Comment on above:Performed By: #### CBCA, CMP, 41747-7, 6-3, HA1C #### [facility] ([id number]) [address] [place], [place] [address]Edlfkuykuph/100 WBC (Bld)64.8 %NormalBellevue Hospital Comment on above:Performed By: #### CBCA, CMP, 37899-5, 6-3, HA1C #### [facility] ([id number]) [address], [address] [place], [place] [address]Kusjonos mean volume (Bld) [Entitic vol]9.3 fLNormal7-12 [facility] HospitalComment on above:Performed By: #### CBCA, CMP, 50666-9, 3016-3, HA1C #### [facility] ([id number]) [address], [address] [place], [place] [address]Woeoxgmnk (Bld) [#/Vol]201 10*3/eFLtxtdn994-994AbtByplyu [place] HospitalComment on above:Performed By: #### RHONDA MANRIQUEZ, 70630-6, 3016-3, HA1C #### [facility] ([id number]) [address], [address] [place], [place] [address]GRQ COUNT4.48 X10E12/LNormal3.80-5.20[facility] Comment on above:Performed By: #### RHONDA MANRIQUEZ, 18970-9, 6-3, HA1C #### [facility] ([id number]) [address], [address] [place], [place] [address]NGU (Bld) [#/Vol]7.1 10*3/uLNormal4.0-11.0Pro[facility]ica [facility]as HospitalComment on above:Performed By: #### RHONDA MANRIQUEZ, 47138-3, 3015-, HA1C #### [facility] ([id number]) [address], [address] [place], [place] [address]ZWAUNPOHGKHFR METABOLIC PANELon 45-06-4561Dtrdxnp [Mass/Vol]4.0 g/dLNormal3.2-5.3Pro[facility]ica [facility] HospitalComment on above:Performed By: #### RHONDA MANRIQUEZ, 63458-5, 3015-, HA1C #### [facility] ([id number]) [address], [address] [place], [place] [address]JQM [Catalytic activity/Vol]72 U/TByzolo63-302UrgYfaohi [facility] HospitalComment on above:Performed By: #### RHONDA MANRIQUEZ, 43715-7, 6-3, HA1C #### [facility] ([id number]) [address], [address] [place], [place] [address]HFH [Catalytic activity/Vol]19 U/LNormal0-31Pro[facility]ica [facility] HospitalComment on above:Performed By: #### RHONDA MANRIQUEZ, 12461-5, 3016-3, HA1C #### [facility] ([id number]) [address], [address] [place], [place] [address]Asxcj gap [Moles/Vol]8 mmol/LNormal5-15Pro[facility] Comment on above:Performed By: #### RHONDA MANRIQUEZ, 63525-6, 6-3, HA1C #### [facility] ([id number]) [address], [address] [place], [place] [address]SAZ [Catalytic activity/Vol]34 U/LNormal0-41ProPremier Health [facility] Center HospitalComment on above:Performed By: #### RHONDA MANRIQUEZ, 45522-4, 6-3, HA1C #### [facility] ([id number]) [address], [address] [place], [place] [address]Znhcetpjk [Mass/Vol]0.7 mg/dLNormal0.3-1.2ProMedLake County Memorial Hospital - West HospitalComment on above:Performed By: #### RHONDA MANRIQUEZ, 59042-4, 6-3, HA1C #### [facility] ([id number]) [address], [address] [place], [place] [address]Wtaudui [Mass/Vol]9.3 mg/dLNormal8.5-10.5PCleveland [facility] HospitalComment on above:Performed By: #### RHONDA MANRIQUEZ, 59200-5, 6-3, HA1C #### [facility] ([id number]) [address], [address] [place], [place] [address]Lwixzxuv [Moles/Vol]105 mmol/JSljcsn84-916HwhHoflfp [place] HospitalComment on above:Performed By: #### RHONDA MANRIQUEZ, 01570-7, 3016-3, HA1C #### [facility] ([id number]) [address], [address] [place], [place] [address]SJ4 [Moles/Vol]28 mmol/WGasozh77-67BdiBscdczSuburban [facility] Comment on above:Performed By: #### RHONDA MANRIQUEZ, 73333-2, 6-3, HA1C #### [facility] ([id number]) [address], [facility] [address] [place], [place] [address]Fggenlvthc [Mass/Vol]0.98 mg/dLNormal0.40-1.00ProKettering Health TroyComment on above:Result Comment: METHOD TRACEABLE TO IDMS STANDARD Performed By: #### RHONDA MANRIQUEZ, 30274-7, 3015-3, HA1C #### [facility] ([id number]) [address] [address]OOU/1.73 sq M.predicted among non-blacks MDRD (S/P/Bld) [Vol rate/Area]62 mL/min/{1.73_m2}Normal>59ProKettering Health TroyComment on above: Result Comment: Reported eGFR is based on the CKD-EPI 2020 equation that does not use a race coefficient.Performed By: #### RHONDA MANRIQUEZ, 33582-5, 3015-3, HA1C #### [facility] ([id number]) [address] [address] [place], [place] [address]Fzrsuuk [Mass/Vol]102 mg/gLNkvc09-56AlbBdxureBellevue Hospital Comment on above:Performed By: #### RHONDA MANRIQUEZ, 65860-9, 3015-3, HA1C #### [facility] ([id number]) [address] [address] [place], [place] [address]Jqkiypiiv [Moles/Vol]4.2 mmol/LNormal3.5-5.0ProKettering Health TroyComment on above:Performed By: #### RHONDA MANRIQUEZ, 96188-3, 6-3, HA1C #### [facility] ([id number]) [address], [address] [place], [place] [address]Tudekep [Mass/Vol]7.2 g/dLNormal6.0-8.0[facility] Comment on above:Performed By: #### RHONDA MANRIQUEZ, 79441-4, 3016-3, HA1C #### [facility] ([id number]) [address], [address] [address]Srjwgy [Moles/Vol]141 mmol/KCxupdd406-824LyxDiruss [place] HospitalComment on above:Performed By: #### RHONDA MANRIQUEZ, 10179-3, 3016-3, HA1C #### [facility] ([id number]) [address], [address] [address]Glao nitrogen [Mass/Vol]13 mg/dLNormal5-27ProKettering Health TroyComment on above:Performed By: #### RHONDA MANRIQUEZ, 44644-2, 6-3, HA1C #### [facility] ([id number]) [address], [address] [address]YSF A1C (GLYCO-HGB)on 73-28-4183Tvvmtbv [Mass/Vol]108 mg/dL NormalProKettering Health TroyComment on above:Performed By: #### RHONDA MANRIQUEZ, 20000-9, 3016-3, HA1C #### [facility] ([id number]) [address], [address] [address]EkE7c (Bld) [Mass fraction]5.4 %Normal4.4-5.6ProKettering Health TroyComment on above:Result Comment: NOTE ADA Guidelines Result HgbA1c Normal : less than 5.7 % Prediabetes : 5.7 % to 6.4 % Diabetes : > 6.4 % Use with caution in patients with abnormal hemoglobin variants as the half-life of red blood cells and in vivo glycation rates are affected.Performed By: #### MITRA, RHONDA, 28402-0, 6-3, HA1C #### [facility] ([id number]) [address], [address] [place], [place] [address]Vkgii 1996 panelon 75-70-2026Qrqpjidplfw [Mass/Vol]131 mg/dLLow 150-200Pro[facility] Greene HospitalComment on above:Performed By: #### MITRA, RHONDA, 58017-7, 3015-3, HA1C #### [facility] ([id number]) [address], [address] [place], [place] [address]Fpuwwufkfmp in HDL [Mass/Vol]55 mg/dLNormal>39Pro[facility] HospitalComment on above:Result Comment: HDL <40 mg/dL - High Risk HDL > or = 40mg/dL- Desirable HDL >60 mg/dL - Negative Risk Performed By: #### MITRA, RHONDA, 15425-6, 6-3, HA1C #### [facility] ([id number]) [address], [address] [place], [place] [address]Yfugihsiwhc in LDL [Mass/Vol]50 mg/dLNormal<130Pro[facility] HospitalComment on above:Result Comment: LDL <100 mg/dL - Desirable LDL >160 mg/dL - High Risk Performed By: #### MITRA, RHONDA, 24163-3, 6-3, HA1C #### [facility] ([id number]) [address], [address] [place], [place] [address]Eobxcryatvl in VLDL [Mass/Vol]26 mg/dLNormal0-30Pro[facility] Center HospitalComment on above:Performed By: #### RHONDA MANRIQUEZ, 95247-9, 3016-3, HA1C #### [facility] ([id number]) [address], [address] [place], [place] [address]FKRHYXWOUDH:HDL2.9Xehihl4.0-5.0ProPrem[facility] Center HospitalComment on above:Performed By: #### RHONDA MANRIQUEZ, 94322-4, 3016-3, HA1C #### [facility] ([id number]) [address], [address] [place], [place] [address]Hsvyleglmvzw [Mass/Vol]131 mg/mFBwtwwd37-443MvyIezncg [place] HospitalComment on above:Performed By: #### RHONDA MANRIQUEZ, 98551-3, 3016-3, HA1C #### [facility] ([id number]) [address], [address] [place], [place] [address]LCN Qnon 67-46-9280RFR5.13 uIU/mLNormal0.49-4.67Pro[facility] HospitalComment on above:Performed By: #### RHONDA MANRIQUEZ, 54128-0, 3016-3, HA1C #### [facility] ([id number]) [address], [address] [place], [place] [address]HX LE Venous Duplex Lefton [id number] LE Venous Duplex Left Exam Date/Time:01/14/2018 12:40 EDTReason for Exam:S/P LEFT TOTAL KNEE, EDAMAReportIMPRESSION: NO EVIDENCE OF DVT INVOLVING VISUALIZED DEEP VEINS OF THE LEFT LEG.CLINICAL HISTORY: S/P LEFT TOTAL KNEE SURGERY, PAIN AND SWELLING IN THE LEFT LEG,EVALUATE FOR POSSIBLE THROMBOPHLEBITIS OR DEEP VENOUS THROMBOSIS IN LEFT LOWEREXTREMITYCOMPARISON: NONE. COMMENT: On the left, the greater saphenous vein, common femoral vein, deep femoralvein, femoral vein, and popliteal vein demonstrate spontaneous phasicvenous flow,with augmentation, competence, non-pulsatility, and compressibility every 2 cm. Theleftposterior tibial and peroneal veins of the deep venous system compress. Thecontralateral right common femoral vein demonstrates spontaneous phasic venous flow. FINAL REPORT Dictated: 01/14/2018 12:59 pm Angel Cole MD Signed (Electronic Signature): 01/14/2018 12:59 pm Signed by:Angel Cole MD Transcribed by: THOR Technologist: ALESHAProMedica Bay Park HospitalAnesthesia Consultationon [id number] ConsultationPatient: SVETLANA DAVIS Age: 67 years Sex: Female : 1950 Associated Diagnoses: None Author: Esau Porter Jr., DO Postoperative Information Post Operative Note: Post Anesthesia Care Unit. Anesthetic utilized: General, Monitored anesthesia care. Health Status Allergies: Allergic Reactions (Selected)Severity Not DocumentedBee Stings- Shortness of breath.Cats- Shortness of breath.Ibuprofen- Hives.Shrimp- Shortness of breath.Sulfa drugs- Hives.Tagamet- Itching.Terramycin- Unknown. Current medications: (Selected) PrescriptionsPrescribedaspirin 325 mg Tab: 325 mg = 1 tab(s), Oral, BID, X 30 day(s), # 60 tab(s), Refills(s) 0, Pharmacy: [facility] #72Documented MedicationsDocumentedColace 100 mg Cap: 100 mg = 1 cap(s), Oral, BID, Refills(s) 0Percocet 325mg-5 mg Tab: 1 tab(s), Oral, q4hr Pain - Moderate, Refill(s) 0Percocet 325 mg-5 mg Tab: 2 tab(s), Oral, q4hr Pain - Moderate, Refill(s) 0Vitamin C: 1,000 mg, Chewed, Daily, ProphylaxisZoloft 50 mg Tab: 50 mg = 1 tab(s), Oral, Daily, Depressionacetaminophen: 500 mg, Oral, q6hr, PRN as needed for paincalcium-vitamin D: 1, Oral, Daily, Prophylaxisgabapentin 100 mg Cap: 100 mg = 1 cap(s), Oral, Daily, Pain Problem list: All ProblemsBronchitis / SNOMED CT 20473322 / ConfirmedDepression / SNOMED CT 153605496 / ConfirmedDuodenum ulcer / SNOMED CT 08200073 / Confirmed I have a sensitive stomach- I know what i can and cannot eat. Resolved: At risk for falls / SNOMED CT 015412268Utghifh added when Risk for Falls Careplan was initiated.Resolved due to patient discharge. Physical Examination Intake and Output Denies significant n/v and is tolerating p.o. Vitals Signs (last 24 hrs) Last Charted Minimum MaximumTemp 36.8 (NOVEMBER 24 11:) 36.8 (NOVEMBER 24:) 36.8 (NOVEMBER 24:)Heart Rate L 59 (NOVEMBER 24:) L 59 (NOVEMBER 24:) L 59 (NOVEMBER 24:)Resp Rate 16 (NOVEMBER 24:)16 (NOVEMBER 24:) 16 (NOVEMBER 24:)SBP 124 (NOVEMBER 24:) 124 (NOVEMBER 24:) 124 (NOVEMBER 24:)DBP 69 (NOVEMBER 24 11:) 69 (NOVEMBER 24 11:31) 69 (NOVEMBER 24:)MAP 88 (NOVEMBER 24:) 88 (NOVEMBER 24:) 88 ( 11:)SpO2 95 (NOVEMBER 24 11:) 95 (NOVEMBER 24:) 95 (NOVEMBER 24:) Pain assessment: Pain Assessment 11/24/2017 14:19 EDT Pain Symptoms Self Report Yes, able to self report Primary Pain Location KneePrimary Pain Laterality Left Primary Pain Quality Aching Patient Preferred Pain Tool Numeric ratingNumeric Pain Scale 5 = Moderate pain Numeric Pain Score 5 11/24/2017 11:28 EDT Primary Pain Location Knee Primary Pain Laterality Left Primary Pain Quality Aching Patient Preferred Pain Tool Numeric rating Numeric Pain Scale 4 Numeric Pain Score 4 11/24/2017 10:45 EDT Pain Symptoms Self Report Yes,able to self report Primary Pain Location Knee Primary Pain Laterality Left Patient Preferred Pain T ool-Amb/Rehab Numeric rating Numeric Pain Scale 4 Numeric Pain Score 4 11/24/2017 10:03 EDT Pain Symptoms Self Report Yes, able to self report Primary Pain Location Knee Primary Pain Laterality Left Primary Pain Quality Aching Patient Preferred Pain Tool Numeric rating Numeric Pain Scale 5 = Moderate pain Numeric Pain Score 5 11/24/2017 08:22 EDT Pain Symptoms Self Report Yes, able to self reportPrimary Pain Location Knee Primary Pain Laterality Left Primary Pain Quality Aching Patient Preferred Pain Tool Numeric rating Numeric Pain Scale 5 = Moderate pain Numeric Pain Score 5 11/24/2017 08:18 EDT Pain Symptoms Self Report Yes, able to self report Primary Pain Location Knee Primary Pain Lat erality Left Primary Pain Quality Aching Patient Preferred Pain Tool-Amb/Rehab Numeric rating Numeric Pain Scale 4 Numeric Pain Score 4 11/24/2017 03:00 EDT Pain Symptoms Self Report No, able to selfreport Primary Pain Location Knee 11/24/2017 00:00 EDT Pain Symptoms Self Report Yes, able to self report Primary Pain Location Knee Primary Pain Laterality Left Primary Pain Radiation No Primary Pain Quality Aching Patient Preferred Pain Tool Numeric rating Numeric Pain Scale 5 = Moderate pain Numeric Pain Score 5 Verbal Descriptor Pain Scale Moderate pain Verbal Descriptor Pain Score 3 Primary Pain Interventions Medications, Repositioning, Rest . Respiratory: Adequate air exchange with yarsanism of preoperative function.. Cardiovascular: Cardiovascular function is stable and has returned to preoperative levels.. Neurologic: Pt has returned to preoperative baseline.. Review / Management Condition: Stable. Assessment Anesthetic outcome No anesthetic complications noted. Plan Transfer/ Discharge: Patient can be discharged from PACU when criteria met. Condition good.Normal [facility] HospitalCoding Summary.on [id number] Summary.CODING DATE: 11/25/2017 FINAL [facility] STATUS: Home w/ Home Health PAYOR:Medicare Grouper: 470 MS-DRG MAJOR HIP AND KNEE JOINT REPLACEMENT OR REATTACHMENT OF LOWER EXTREMITY W/O [facility] Low Trim 0 High Trim 999 302 APR-DRG KNEE JOINT REPLACEMENT Severity of Illness Moderate Risk of Mortality Minor ADMIT DX: M17.12 Unilateral primary osteoarthritis, left knee REASON FOR VISIT DX: FINAL DX: PRINCIPAL: M17.12 Y Unilateral primary osteoarthritis, left knee SECONDARY: Z68.42 1Body mass index (BMI) 45.0-49.9, adult E66.01 Y Morbid (severe) obesity due to excess calories F32.9 Y Major depressive disorder, single episode, unspecified Z96.651 Y Presence of right artificial knee joint PROCEDURES DOCTOR NAME DATE Replacement of Left Knee Joint Noonan Shaylee CHAVEZFlorin 11/23/2017 with Synthetic Substitute, Cemented, Open Approach [id number] Introduction of Anesthetic Angelanigilbert Rosenthal Esau CHAVEZ 11/23/2017 Agent into Peripheral Nerves and Plexi, Percutaneous Approach NOTE: The code number assigned matches the documented diagnosis and / or procedure in the patient's chart. However, the narrative phrase printed from the coding software may appear abbreviated, or result in slightly different terminology. Coded By: Marielos Hernandez Date Saved: 11/25/2017 08:14 amNormalBlanchard Valley Health System [facility]ard Valley HospitalAuto Diffon 11-24-2017 Basophils Auto #/vol (Bld)0.1 E9/LNormal0.0-0.2FGalion Hospital Comment on above:Order Comment: Order Added by Discern Expert.Performed By: #### [id number], [id number] ####[address] [address]Fjjzieirz Auto #/vol (Bld)0.4 %Normal0.0-2.0[facility] HospitalComment on above:Order Comment: Order Added by Discern Expert. Performed By: #### [id number], [id number] ####[address] [address]Dhmychuixoh7.0 E9/LNormal0.0-0.5 [facility] HospitalComment on above:Order Comment: Order Added by Discern Expert.Performed By: #### [id number], [id number] ####[address] [address]Ikyztneuypk/100 leukocytes0.0 %Normal0.0-8.0[facility] Valley HospitalComment on above:Order Comment: Order Added by Discern Expert.Performed By: #### [id number], [id number] ####[address] [address]Blagmpflkfg5.0 E9/L Normal1.0-4.0[facility] HospitalComment on above:Order Comment: Order Added by Discern Expert.Performed By: #### [id number], [id number] ####[address] [address]Erpgrvzggrb/100 leukocytes7.2 %Low14.0-50.0[facility] HospitalComment on above:Order Comment: Order Added by Discern Expert.Performed By: #### [id number], [id number] ####[address] [address] Monocytes1.2 E9/LHigh0.2-1.0[facility] HospitalComment on above:Order Comment: Order Added by Discern Expert.Performed By: #### [id number], [id number] ####[address] [address] Monocytes/100 leukocytes8.0 %Normal4.0-14.0[facility] HospitalComment on above:Order Comment: Order Added by Discern Expert.Performed By: #### [id number], [id number] ####[address] [address]Dyqudxdzbsa60.3 E9/LHigh2.0-7.5FGalion HospitalComment on above: Order Comment: Order Added by Discern Expert.Performed By: #### [id number], [id number] ####[address] [address]Pbivauxccrh/100 kaerdzaqtl74.4 %High36.0-75.0[facility] Comment on above:Order Comment: Order Added by Discern Expert.Performed By: #### [id number], [id number] ####[address] [address]SRQsa 56-25-6222Jpsh xznicxvr65 mg/dLNormal5-21[facility] HospitalComment on above:Performed By: #### [id number], [id number] ####[address] [address]QLU w/ Auto Diff on 75-20-5969Hnbtnlcfuos distribution width Auto Ratio (RBC)14.0 %Normal 10.9-14.2FGalion HospitalComment on above:Performed By: #### [id number], [id number] ####[place] [address]Erythrocytes (RBC)4.3 E12/LNormal4.3-5.9[facility] HospitalComment on above:Performed By: #### [id number], [id number] ####[place], [place] [address]Hematocrit (HCT)35.9 % Gskdcn75.0-46.0[facility] HospitalComment on above:Performed By: #### [id number], [id number] ####[place], [place] [address]Hemoglobin mass conc (Bld)12.0 g/pNMvvcit70.0-16.0[facility] HospitalComment on above:Performed By: #### [id number], [id number] ####[place] [address]MCH 27.8 zeOfailp96.0-34.0[facility] HospitalComment on above:Performed By: #### [id number], [id number] ####[place] [address]MCHC mass conc (RBC)33.3 g/zGJydsrk25.4-39.3FGalion HospitalComment on above:Performed By: #### [id number], [id number] ####[place] [address]MCV83.6 fLNormal 80.0-100.0[facility] HospitalComment on above:Performed By: #### [id number], [id number] ####[place] [address]Platelet mean volume (PMV)7.6 fLNormal6.4-10.8[facility] HospitalComment on above:Performed By: #### [id number], [id number] ####[address], [place] [address]Tclebmxtr014.0 E9/ZBhssoj326.0-500.0[facility] HospitalComment on above:Performed By: #### [id number], [id number] ####[place] [address] [place], [place] [address]QUM (Leukocytes)14.6 E9/LHigh4.0-11.0[facility] HospitalComment on above:Performed By: #### [id number], [id number] ####[facility] [address] [place], [place] [address]Wyzmrqozsndw 41-13-9391Dlrzypchvp6.9 mg/dLNormal0.5-1.3FGalion HospitalComment on above:Performed By: #### [id number], 9761329 ####[address] [address]Flmllphgt Note-Nursingon 11-24-2017 [id number] - Report called and faxed to [facility]. discharge instructions reviewed with patient, who verbalized understanding and denied any questions. prescriptions given to patient. 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 poct to remove IV and wheel patient out via w/c to private car.[facility] Discharge Summaryon [id number] SummaryPatient: SVETLANA DAVIS Age: 67 years Sex: Female : 1950 Associated Diagnoses: None Author: Shaylee Noonan DO Results Review General results Discharge Information Discharge Summary Information: Admitted 11/23/2017, Discharged 11/24/2017. Admitting physician: Shaylee Noonan DO. Admitting diagnosis: Localized osteoarthritis of left knee ([id number] M17.12, Discharge, Medical). Discharge diagnosis: Localized osteoarthritis of left knee ([id number] M17.12, Discharge, Medical). Operations and procedures: left tka. Physical Examination Stable course. D/C home w PT. ASA 325 mg EC BID for 4 weeks. F/U in 4 weeks.[facility] HospitalComment on above:Result Comment: Electronically Signed By: Shaylee Noonan.br\Date and Time Signed: 11/24/17 15:25 EDTInpatient Clinical Summaryon [id number] Clinical Summary [place] [id number] Clinical Summary Person Information:Name: SVETLANA DAVIS Age: 67 Years : 1950 12:00 AM Sex: Female PCP: DANILO CEDILLO CNP Marital Status: Phone: [phone] Race:White Ethnicity:Non- or Language:Croatian Visit Id: Visit Reason:LEFT KNEE OA, OBESITY Speciality: Acuity: Enc Type: Inpatient Med Service: Surgery Arrival:11/23/2017 7:46 AM Discharge: Dispo Type: Address:[facility] [place] [id number] Provider Notes: Di agnosis:Localized osteoarthritis of left knee Problems No Problems Documented Smoking Status: Functional Status:Sensory Deficits: History of Falls: Mobility Assistance Prior to Admission: ADLs: IndependentCurrent Level of Assistance for Self-Care/Mobility: Cognitive Status: Allergies ibuprofen (Hives) Tagamet (Itching) sulfa drugs (Hives) Shrimp (Shortness of breath) Bee Stings (Shortness of breath) Cats (Shortness of breath) Terramycin (Unknown) Measurements:Height: Weight: Blood Pressure: 124mmHg / 69 mmHgBMI: Procedures Total knee arthroplasty (11/23/2017) Immunizations No Immunizations Documented This Visit Final Med List:acetaminophen 500 Milligram By Mouth every 6 hours as needed as n eeded for pain.acetaminophen-oxycodone (Percocet 325 mg-5 mg Tab) 2 Tabs By Mouth every 4 hours as needed Pain - Moderate.acetaminophen-oxycodone (Percocet 325 mg-5 mg Tab) 1 Tabs By Mouth every 4 hours as needed Pain - Moderate.ascorbic acid (Vitamin C) 1,000 Milligram Chewed every day.aspirin (asp irin 325 mg Tab) 1 Tabs By Mouth 2 times a day for 30 Days. Refills: 0.calcium- vitamin D 1 By Mouthevery day.docusate (Colace 100 mg Cap) 1 Capsules By Mouth 2 times a day.gabapentin (gabapentin 100mg Cap) 1 Capsules By Mouth every day.sertraline (Zoloft 50 mg Tab) 1 Tabs By Mouth every day. CareTeam Members:Attending Physician: Shaylee Noonan DOConsulting Physician: Referring Physician: Shaylee Noonan DO Follow up:With: Address: When: DANILO Johnson [address] [facility] [place] [address] Business (1) Comments: call for appt if needed With: Address: When: Shaylee Noonan [address] [place] [address] Business (1) 12/23/17 01:15:00 Comments: Keep scheduled appointment per attached card Patient Education Information: Piedad - Total Knee Arthroplasty (Custom) (CUSTOM)[facility] Summaryon [id number] Patient Summary [address] [address] Patient Discharge Instructions PERSON INFORMATION Name: SVETLANA DAVIS Date of : 1950 12:00 AM Current Date: 11/24/17 15:07:20 PHYSICIANS Admitting Physician: Shaylee Noonan DOPrimary Care Physician: DANILO CEDILLO CNP [facility] Comment: Discharge Diagnosis: Localized osteoarthritis of left kneeCondition at Discharge: SVETLANA DAVIS has been given the following list of follow-up instructions, prescriptions, and patient education materials: PATIENT FOLLOW-UP INFORMATIONDiet: Regular, Drink liquids and eat a light mealDischarge Activity: Ambulate as tolerated, Arrange for a responsible adult supervision for 24 hours, Expect mild pain, Expect minimal amount of drainage and/or bleeding, Do not lift more than 5 lbsDischarge Restrictions: No driving, Do not operate machinery or tools, Do not make important decisions for 24 hours, Do not drink alcoholic beverages for 24 hoursWound Care Instructions: Remove dressing as instructedRemove Your Dressing In 10 DaysCall Your Doctor For: Persistent or heavy bleeding, Temperature above 101.5 degrees, Redness, swelling, or pus at operative site, Severe pain at the operative site, Persistent vomiting IF UNABLE TO CONTACT YOUR PHYSICIAN AND YOU FEEL IT IS AN EMERGENCY, GO TO THE NEAREST EM ERGENCY ROOM OR CALL 911 Home Treatment: Devices/Equipment: Walker - front wheeledSpecial Services:Additional Instructions: Discharge Instructions-OUTPT Entered On: 11/22/2017 17:39 EDT Performed On:11/22/2017 17:39 EDT by Shaylee Noonan Discharge Instructions Discharge Diet(s) : Regular, Drinkliquids and eat a light meal Discharge Activity : Ambulate as tolerated, Arrange for a responsible adult supervision for 24 hours, Expect mild pain, Expect minimal amount of drainage and/or bleeding,Do not lift more than 5 lbs Discharge Restrictions : No driving, Do not operate machinery or tools,Do not make important decisions for 24 hours, Do not drink alcoholic beverages for 24 hours Call Your Doctor For : Persistent or heavy bleeding, Temperature above 101.5 degrees, Redness, swelling, orpus at operative site, Severe pain at the operative site, Persistent vomiting Wound Care : Remove dressing as instructed Remove Dressing On : 10 Shaylee Noonan - 11/22/2017 17:39 EDT Primary Care Alycia henson to provide the following pending test results: Follow up:With: Address: When: DANILO CEDILLO [address] [place] [id number] Business (1) Comments: call for appt if needed With: Address: When: Shaylee Noonan [address] [place] [address] [facility] (1) 12/23/17 01:15:00 Comments: Keep scheduled appointment per attached card In the event thatthis physician does not participate in your insurance network, please consult with your insurance company to find a nearby participating provider. Comment: RYAN Acosta LEANN G, have received the attached patient education materials/instructions and have verbalized understanding:Patient Signature Date Clinican/Nurse Signature Date HERE ARE THE MEDICATION CHANGES THAT OCCURRED DURING YOUR HOSPITALSTAY New MedicationsDiscount Drug [facility], [address] [place] [address], [phone] (aspirin 325 mg Tab) 1 Tabs By Mouth 2 times a day for 30 Days. Refills: 0.Last Dose: Next Dose: Other Medicationsacetaminophen-oxycodone (Percocet 325 mg-5 mg Tab) 2 Tabs By Mouth every 4 hours as needed Pain - Moderate.Last Dose: Next Dose: acetaminophen-oxycodone (Percocet 325 mg-5 mg Tab) 1 Tabs By Mouth every 4 hours as needed Pain - Moderate.Last Dose: Next Dose: docusate (Colace 100 mg Cap) 1 Capsules By Mouth 2 times a day.Last Dose: Next Dose: Medications to Continue with No ChangesOther Medicationsacetaminophen 500 MilligramBy Mouth every 6 hours as needed as needed for pain.Last Dose: Next Dose: ascorbic acid (Vitamin C) 1,000 Milligram Chewed every day.Last Dose: Next Dose: calcium-vitamin D 1 By Mouth every day.Last Dose: Next Dose: gabapentin (gabapentin 100 mg Cap) 1 Capsules By Mouth every day.LastDose: Next Dose: sertraline (Zoloft 50 mg Tab) 1 Tabs By Mouth every day.Last Dose: Next Dose: Comment: MEDICATION LIST PROVIDED FOR YOU IS A LIST OF YOUR CURRENT MEDICATIONS. PLEASE CARRY THIS WITH YOU AT ALL TIMES. acetaminophen 500 Milligram By Mouth every 6 hours as needed as needed for pain.acetaminophen-oxycodone (Percocet 325 mg-5 mg Tab) 2 Tabs By Mouth every 4 hours as needed Pain - Moderate.acetaminophen-oxycodone (Percocet 325 mg-5 mg Tab) 1 Tabs By Mouth every 4 hours as needed Pain - Moderate.ascorbic acid (Vitamin C) 1,000 Milligram Chewed every day.aspirin (aspirin 325 mg Tab) 1 Tabs By Mouth 2 times a day for 30 Days. Refills: 0.calcium-vitamin D 1 By Mouth every day.docusate (Colace 100 mg Cap) 1 Capsules By Mouth 2 times a day.gabapentin (gabapentin 100 mg Cap) 1 Capsules By Mouth every day.sertraline (Zoloft 50 mg Tab) 1 Tabs By Mouth every day.Pharmacy Information: Comment: PATIENT EDUCATION INFORMATIONInstructions:[place], [place]Access OrthopaedicsDISCHARGE INSTRUCTIONS TOTAL KNEE ARTHROPLASTYINCISION CARE:Aquacell dressing can get wet with showers. Please remove 10 days after surgery per instruction sheet. Staple removal day #14 with nursing staff if present. Please notify the office if any increase in redness, tenderness, drainage, fever, or wound separation is noted beyond this point.Compression stockings may be helpful if any significant or uncomfortable swelling in the legs is noted postoperatively. Use and removal instructions should be given by physical therapy. If the swelling is below the knee, knee high compression stockings may suffice. If this does cause swelling into the thigh region, waist high compression stockings may be beneficial as well. These can be obtained from most pharmacies, or can be obtained from the hospital or through Home Health. The mild grade compression stockings are best used initially. When applying or removingthe compression stocking, you may need assistance for this as. MEDICATIONS:You may resume your homemedications at the time of discharge.Aspirin 325 mg EC oral twice a day for 4 weeks for blood clot prevention.Pain medication has been prescribed as well. You may continue to use the pain medication every four hours as needed. Any narcotic pain medication can cause side effects including stomach upset, constipation, or light-headedness. You should not drive or operate machinery, or use alcohol while using the narcotic pain medication. You should not use other pain medications with this prescript ion pain medication unless further directed by your physician.PHYSICAL THERAPY:Continue the range of motion and strengthening exercises initiated in Physical Therapy in the hospital. [facility] Discharge Instructs for TKA Page 2Physical Therapy Cont. Continue weight bearing, as ordered, tothe operated knee for four to six weeks as directed in Physical Therapy, or until your strength is improved and Physical Therapy will then allow you to progress to full weight. This will be with the use of a walker or crutches initially. After four or six weeks you may then progress to the use of one crutch, or a cane. A quad-cane is preferred as this is more stable.Physical therapy as begun in the hospital will continue at home, possible with the corporate administrative assistant of Home Health Physical Therapy or [facility] as an outpatient. When you have become independent with the physical therapy program, this will then be discontinued as a supervised program and you will be instructed to continue the physical therapy exercises at home.Your exercises are wilde to successful rehabilitation. You should gain full extension first, hopefully before hospital discharge, then continue to do the exercises to maintain this, and gain 90 degrees flexion by one month post-op. Do the exercises daily, twice if preferred. DRIVING:Please do not drive for 4-6 weeks pending therapy progress. 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 It is therefore advised not to drive until after your first office visit following surgeryFOLLOW-UP OFFICE VISIT: Shaylee Noonan, DOAccess [id number] [place], [place] [phone]: 10-31 Medication Leaflets: Thank you [facility] choosing [facility] IncPro[facility] HospitalInterdisciplinary Note - Case Manageron [id number] is alert, sitting in chair, and involved in plan of care. at bedside. Pt aware of plan for [facility] at discharge, and referral sent to resource center. pt has own FWW in car. Insurance information reviewed, and medicare right reviewed. form signed. PCP verified. Pt deiens any further concerns or needs at this time. contact information provided, and white board updated.[facility] HospitalInterdisciplinary Note - OTon [id number] Note - OTPatient scored 23/24 on 6 clicks and should be ok to return home with to assist as needed. Patient received education for increased safety and independence with ADL and transfer tasks using AE and/or modification of task. Patient does not demonstrate further need for OT at this time but is agreeable to home health PT when ready for d/c.[facility] Park HospitalLyteson [id number] gap9 mmol/LNormal6-16Fisher [facility]vinash Medical CenterComment on above:Performed By: #### [id number], [id number] ####[facility] [address] [place], [place] [address]Nfqokbkg504 mmol/XExdwic882-678YltpxuBlanchard Valley Health System Bl[facility] Valley HospitalComment on above:Performed By: #### [id number], [id number] ####[facility] [address] [place], [place] [address] mmol/BHfcnyc99-12HoavhvBlanchard Valley Health System Blanch[facility] Valley HospitalComment on above:Performed By: #### [id number], [id number] ####[facility] [address] [place], [place] [address]Ugddhtayf molar conc4.3 mmol/LNormal3.5-5.3FGalion HospitalComment on above:Performed By: #### [id number], [id number] ####[facility] [address] [place], [place] [address]Vbwwgt908 mmol/L Ecshpj540-947PvaovzBlanchard Valley Health System Blanchard Valley HospitalComment on above:Performed By: #### [id number], [id number] ####[facility] [address] [place] [address]Bimt OR Intraoperative Recordon [id number] OR Intraoperative RecordIntraOp Document Type FT Summary Primary Physician: Shaylee Noonan DO Finalized Date/Time: 11/24/17 13:16:16 Pt. Name: SVETLANA DAVIS/Sex: 1950 [id number] Physician: Shaylee Noonan DO Financial #: [id number] Pt. Type: I Room/Bed: Admit/Disch: 11/23/17 07:46:06 - Institution: Case Times FT Entry 1 Patient Times In Room 11/23/17 10:03:00 Out Room 11/23/17 11:52:00 Procedure Times Start 11/23/17 10:35:00 Stop 11/23/17 11:44:00 Anesthesia Times Start 11/23/17 10:03:00 Stop 11/23/17 11:52:00 Block Timeout w/ 11/23/17 09:52:00 Anes thesia Last Modified By: Parisa RN, BERTA, Diana Aldrich 11/23/17 11:52:36 General Comments: 0950 Patient transported via cart all rails up to block room by DEVIN Gleason. 0952 Block timeout performed with Dr Porter and DEVIN Gleason present. 0953 Start of block. 0958 End of block. Patient tolerated well. 1001 Patient transported via cart all rails up to OR suite by DEVIN Gleason. DEVIN Hager 11/24/17 chart open to review and send charges. L Parisa BELTRAN Case Attendance FT Entry 1 Entry 2 Entry 3 Case Attendee Charlotte Rosenthal DO, Esau Noonan DO, Shaylee Ramirez RN, Karl Wright Performed Anesthesiologist ofSurgeon - Primary DISPLAY SPECIALIST Record Time In 11/23/17 10:03:00 11/23/17 10:03:00 11/23/17 10:03:00 Time Out 11/23/17 11:52:00 11/23/17 11:52:00 11/23/17 11:52:00 Procedure KNEE TOTAL KNEE TOTAL KNEE TOTAL ARTHROPLASTY(Left) ARTHROPLASTY(Left) ARTHROPLASTY(Left) Comments Last Modified By: Malika RN, Klaudia Daly RN, Klaudia Dia RN 11/23/17 11:56:19 11/23/17 11:56:19 11/23/17 11:56:19 Entry 4 Entry 5 Entry 6 Case Attendee Bharath LOCOMOTIVE PIPE FITTER, Juliette Haddad LOCOMOTIVE PIPE FITTER, Delfina Bolden CST, Elvira Lester Performed Scrub - Other Scrub - Primary Scrub - Primary Time In 11/23/17 10:03:00 11/23/17 10:03:00 11/23/17 10:03:00 Time Out 11/23/17 11:52:00 11/23/17 11:52:00 11/23/17 11:52:00 Procedure KNEE TOTAL KNEE TOTAL KNEE TOTAL ARTHROPLASTY(Left) ARTHROPLASTY(Left) ARTHROPLASTY(Left) Comments LastModified By: Malika RN, Klaudia Daly RN, Klaudia Dia RN 11/23/17 11:56:19 11/23/17 11:56:19 11/23/17 11:56:19 Entry 7 Entry 8 Case Attendee Aixa BELTRAN, Klaudia Mata RN Role Performed Automatic Car Wash Attendant - Primary Automatic Car Wash Attendant - Primary Time In 11/23/17 10:03:00 11/23/17 1 0:03:00 Time Out 11/23/17 11:52:00 11/23/17 11:52:00 Procedure KNEE TOTAL KNEE TOTAL ARTHROPLASTY(Left) ARTHROPLASTY(Left) Comments Last Modified By: Klaudia Daly RN, RN, Kimberly Y 11/23/17 11:56:19 11/23/17 11:56:19 General Comments: Rajesh Hager RN Perioperative Protocols FT Pre-Care Text: Implements protective measures prior to operative or invasive procedure, confirms identity before the operative or invasive procedure, verifies operative procedure, surgical site, and laterality Entry 1 Procedure(s) KNEE TOTAL Patient Identity Birthday, Blood Band, ARTHROPLASTY(Left) Verified (select at ID Band Check, Patient least 2): Participation Consents / H and P Anesthesia Consent, Operative Site Present Verified HandP, Surgery/Procedure Marking Verified Consent, Transfusion Consent Surgical Site Yes Laterality Verified Yes Verified Procedure Verified Yes Correct Patient Yes Position Verified Availability Equipment, Implant, Prep Dry n/a Verified (If Medication Applicable) PreOp Antibiotic Yes Time Out Esau Porter Jr., DO, Given Participants Shaylee Noonan DO, Rivera RN, Bharath Barajas LOCOMOTIVE PIPE FITTER, Catie Segovia LOCOMOTIVE PIPE FITTER, Yuan Gr LOCOMOTIVE PIPE FITTER, Aixa Perez RN, Malika Garcia RN, Kimberly Y Time Out Complete 11/23/17 10:32:00 Outcomes Met? Yes Last Modified By: Klaudia Daly RN 11/23/17 10:42:18 Post-Care Text: The patient is free from signs andsymptoms of injury caused by extraneous objects Allergy Information FT Pre-Care Text: Verifies allergies Entry 1 Allergies Reviewed? Yes Allergies Reviewed Self/Patient With Outcomes Met? Yes Last Modified By: Klaudia Daly RN 11/23/17 10:42:21 Post-Care Text: The patient received appropriate medication(s) safely administered during the perioperative period Surgical Procedures FT Entry 1 Procedure Description Procedure KNEE TOTAL ARTHROPLASTY Modifiers Left Surgeon Description LEFT TOTAL KNEE ATHROPLASTY COMPOUNDED BY OBESITY Primary Procedure Yes Primary Surgeon Shaylee Noonan DO Start 11/23/17 10:35:00 Stop 11/23/17 11:44:00 Anesthesia Type General Surgical Service Orthopedics Wound Class 1 - Clean Last Modified By: Klaudia Daly RN 11/23/17 11:46:49 General Case Data FT Pre-Care Text: Classifies surgical wound, implements aseptic technique, initiates traffic control Entry 1 Case Information OR OR 7 FT Case Level Level 6 Wound Class 1 - Clean Specialty Orthopedics ASA Class 2 Preop Diagnosis LEFT KNEE OA, OBESITY Postop Same As Preop Yes Postop Diagnosis LEFT KNEE OA, OBESITY Outcomes Met? Yes Last Modified By: Klaudia Daly RN 11/23/17 10:42:24 Post-Care Text: The patient is free from signs and symptoms of infection Skin Assessment (Pre Procedure) FT Pre-Car e Text: Implements protective measures to prevent skin/ tissue injury due to thermal or mechanical sources Evaluates for signs and symptoms of physical injury to skin and tissue Entry 1 Skin Integrity Intact, Vader, Warm, and Skin Abnormality No Dry Outcomes Met? Yes Last Modified By: Klaudia Daly RN 11/23/17 10:42:33 Post-Care Text: The patient is free from signs and symptoms of injury caused by extraneous objects Patient Positioning FT Pre-Care Text: Identifies physical alterations that require additional precautions for procedure-specific positioning, verifies presence of prosthetics or corrective devices, positions the patient, evaluates the patient for signs and symptoms of injuryas a result of positioning Entry 1 Procedure KNEE TOTAL Body Position Supine ARTHROPLASTY(Left) Feet Uncrossed? Yes Left Arm Position Extended on Padded Arm Board Right Arm Position Extended on Padded Arm Left Leg Position Held on Field Board Right Leg Position Extended Positioning Device Blankets F olded, Padded Armboard, Pillow Under Head Large, Safety Strap, Total Knee Noriega Press Points Checked Yes By Esau Porter Jr., DO, Woodworth RN, Malika Garcia RN, James Carney RN, Karl Outcomes Met? Yes Last Modified By: Klaudia Daly RN 11/23/17 10:43:52 Post-Care Text: The patient is free from signs and symptoms of injury related to positioning General Comments: Folded blankets nina paige under entire right leg and lower left leg. Folded blanket placed over right leg; leg then secured to bed with tape. DEVIN Hager Patient Care Devices FT Pre- Care Text: Implements protective measures to prevent skin/ tissue injury due to thermal or mechanical sources Entry 1 Entry 2 Entry 3 Equipment Type CAUTERY UNIT[F] BEE SYSTEM[F] INTERPULSE[F] Equipment Number C1 Equipment Setting Outcomes Met? Yes Yes Yes Last Modified By: Klaudia Daly RN, RN, Jamila Dia RN 11/23/17 10:45:21 11/23/17 10:45:21 11/23/17 10:45:21 Entry 4 Entry 5 Entry 6 Equipment Type MISTRAL FORCED AIR MONITOR CHARGE SURGERY GADIEL SUCTION UNIT [F] WARMING SYSTEM UNIT[F] [F] Equipment N umber M3 ROOM 7 1 Equipment Setting Outcomes Met? Yes Yes Yes Last Modified By: Jamila Daly RN, RN, Klaudia Dia RN 11/23/17 10:45:21 11/23/17 10:45:21 11/23/17 10:45:21Entry 7 Entry 8 Equipment Type SONOSITE ULTRASOUND TOURNIQUET CLEO [F] UNIT[F] Equipment Number C Equipment Setting Outcomes Met? Yes Yes Last Modified By: Klaudia Daly RN, RN, Kimberly Y 11/23/17 10:45:21 11/23/17 10:45:21 Post-Care Text: The patient is free from signs and symptoms of injury caused by extraneous objects Transport To OR FT Pre-Care Text: Transports according to individual needs. Evaluates for signs and symptoms of skin and tissue injury as a result of transfer ortransport Entry 1 Via Cart By Aixa BELTRAN, Clay Miller Safety Precautions Side Rails Up Outcomes Met? Yes Last Modified By: Klaudia Daly RN 11/23/17 10:45:40 Post-Care Text: The patient is free from signs and symptoms of injury related to transfer/transport Cautery FT Pre-Care Text: Implements protective measures to prevent injury due to electrical sources, and evaluates for signs and symptomsof electrical injury Entry 1 ESU Identification ESU Settings Cut 50 Coag 50 ESU Grounding Pad Site Right Flank Hair Removal Pad No Site Pre Pad Site Clear and Intact Post Pad Site Clear and Intact Condition Condition Grounding Pad Klaudia Daly RN Placed By Outcomes Met? Yes Last Modified By: Klaudia Daly RN 11/23/17 10:46:04 Post-Care Text: The patient if free from signs and symptoms of electrical injury Counts Verification FT Pre-Care Text: Performs required counts Entry 1 Entry 2 Entry 3 Procedure(s) KNEE TOTAL KNEE TOTAL KNEE TOTAL ARTHROPLASTY(Left) ARTHROPLASTY(Left) ARTHROPLASTY(Left) Type Initial Closing Final Items Sponges, Sharps, Sponges, Sharps, Sponges, Sharps, Other/See Comments Other/See Comments Other/See Comments Status Correct Correct Correct Time 11/23/17 10:05:00 11/23/17 11:26:00 11/23/17 11:31:00 By Delfina Haddad CST, Catie CUMMINGS, Delfina Cheng, Delfina Joseph, Aixa BELTRAN, Clay Kruse RN, Clay Flores RN Outcomes Met? Yes Yes Yes Last Modified By: Klaudia Daly RN, RN, Klaudia Dia RN 11/23/17 10:47:14 11/23/17 11:32:07 11/23/17 11:32:07 Post-Care Text: The patient is free from signs and symptoms of injury caused by extraneous objects General Comments: OTHER/SEE COMMENTS - SAW BLADES X 2. DEVIN HAGER Skin Prep FT Pre-Care Text: Performs skin preparations Entry 1 Procedure KNEE TOTAL Prep Area entire leg to upper ARTHROPLASTY(Left) thigh (tourniquet) to ankle Prep Agents Betadine Scrub and Solution Hair Removal Methods Not Indicated By Clay Kruse RN Outcomes Met? Yes Last Modified By: Klaudia Daly RN 11/23/17 10:47:45 Post-Care Text: The patient is free from signs and symptoms of infection Departure From OR FT Pre-Care Text: Transports according to individual needs. Evaluates for signs and symptoms of skin and tissue injury as a result of transfer or transport. Entry1 Via Patient Bed Safety Precautions Side Rails Up PostOp Destination PACU Transported By Clay Veras Barbee RN, Klaudia Y Patient Status Stable Skin. Condition Intact, Vader, Warm, and Dry Airway Maintenance Oxygen in Use? Yes Airway Device Simple Mask Flow Rate 8 L Outcomes Met? Yes Last Modified By: Klaudia Daly RN 11/23/17 10:48:30 Post-Care Text: The patient is free from signs and symptoms of injury related to transfer/transport General Comments: Report given to PACU nurse. DEVIN Hager Dressing/Packing FT Pre-Care Text: Administers care to wound sites Entry 1 Type Dressing Items DRESSING AQUACEL AG SURG HF 3 1/2 X 10 [[id number]][F] Site and Details LEFT KNEE - SKIN AFFIX, Outcomes Met? Yes AQUACEL, ABD, KERLIX AND LINDA. Last Modified By: Klaudia Daly RN 11/23/17 11:11:32 Post-Care Text: The patient is free from signs and symptoms of infection Medication Administration FT Pre-Care Text: Verifies allergies, administers prescribed medications and solutions, administers prescribed antibiotic therapy and immunizing agents as ordered, evaluates response to medications Administers prescribed medications and solutions Entry 1 Expiration Date Yes Outcomes Met? YesVerified Last Modified By: Klaudia Daly RN 11/23/17 10:48:43 Post-Care Text: The patient received appropriate medication(s) safely administered during the perioperative period For Rivas-Meigs please see scanned medication reconcilliation form for medications used at the field during the procedure. Tourniquet FT Pre-Care Text: Implements protective measures to prevent skin/tissue injury dueto mechanical sources Entry 1 Tourniquet Type TOURNIQUET CUFF PURPLE Setting 350 mmHg 34 X 4 [[id number]][F] Equipment Number C Placement Left Upper Thigh Cuff Size 34 267 Padding Under Cuff Yes Applied Applied By Clay Kruse RN, Skin Assessment Unremarkable Klaudia Daly RN Before Inflation Skin Assessment Unremarkable After Inflation Tourniquet Times Inflated 11/23/17 10:35:00 De flated 11/23/17 11:40:00 Total Time 65 minute(s) Outcomes Met? Yes Last Modified By: Klaudia Daly RN 11/23/17 11:40:39 Post-Care Text: The patient is free from signs and symptoms of injury caused by extraneous objects Implant Log FT Pre-Care Text: Records devices implanted during the operative or invasive procedure Entry 1 Entry 2 Entry 3 Implant/Explant Implant Implant Implant Implant Identification Description CEMENT SMARTSET GHV CEMENT SMARTSET GHV FEMORAL POSTERIOR GENTAMICIN 40G GENTAMICIN 40G STABILIZED CEMENTED [5450-35-500][F] [5450-35-500][F] Serial Number Lot Number [id number] Billing Checker FT-DEPUY FT-DEPUY DEPUY ORTHO Catalog ?# [id number] [F] 5450-35-500 [F] 1960-40-300 Size 3 LEFT Expiration Date 03/25/19 02/22/19 08/25/26 Usage Data Implant Site LEFT KNEELEFT KNEE LEFT KNEE Quantity 1 1 1 Temperature Reconstitution Method Outcomes Met? Yes Yes Yes LastModified By: Malika BELTRAN, Klaudia Daly RN, Klaudia Dia RN 11/23/17 11:15:02 11/23/17 11:15:02 11/23/17 11:10:54 Entry 4 Entry 5 Entry 6 Implant/Explant Implant Implant Implant Implant Identification Description TIBIAL INSERT FIXED TIBIAL TRAY FIXED OVAL DOME PATELLA BEARING STABILIZED BEARING MODULAR COCCR Serial Number Lot Number [id number] Billing Checker DEPUY ORTHO DEPUY ORTHO DEPUY ORTHO Catalog ?# [id number] 1581-30-000 96-100 Size 3, 12.5mm 3 CEMENTED 3-PEG, 32mm Expiration Date 07/25/22 09/23/27 07/25/22 Usage Data Implant Site LEFT KNEE LEFT KNEE LEFT KNEE Quantity 1 1 1 Temperature Reconstitution Method Outcomes Met? Yes Yes Yes Last Modified By: Malika BELTRAN, Klaudia Daly RN, Klaudia Dia RN 11/23/17 11:10:54 11/23/17 11:10:54 11/23/17 11:15:02 Post-Care Text: The patient is free from signs and symptoms of injury caused by extraneous objects Urinary Catheter Pre-Care Text: Patient is prepped using sterile technique. Entry 1Urinary Catheter TRAY URINE JORGE CATH Present Upon Arrival No Inserted LF 16FR [[id number]][F] Insertion Date/Time 11/23/17 10:12:00 Urine Residual 250 Insertion Site Uretheral Urine clear yellow Characteristics Inserted By Aixa BELTRAN, Clay Miller Discontinued? No Outcomes Met? Yes Last Modified By: Klaudia Dinero RN 11/23/17 10:49:15 Post-Care Text: The patient is free from signs of trauma. Cultures and Specimens FT Pre-Care Text: Manages specimen handling and disposition Manages culture specimen collection Entry 1 Cultures Ordered Yes Culture Disposition Designated OR Area Culture Source URINE Specimens Ordered Yes Specimen Disposition Designated OR Area Frozen Section Times Outcomes Met? Yes Last Modified By: Klaudia Daly RN 11/23/17 10:52:41 Post-Care Text: The patient is free from signs and symptoms of injury caused by extraneous objects The patient is free from signs and symptoms of infection Temperature Control Entry 1 Temperature Control BLANKET MISTRAL AIR Quantity 1 AidTORSO [[id number]][F] Fluid/[place] Unit Mistral warming system Setting HIGH/43C Body Site Upper anterior torso Last Modified By: Klaudia Daly RN 11/23/17 10:53:43 Case Comments Finalized By: BERTA Mccauley RN, Lou Ann Document Signatures Signed By: Klaudia Daly RN 11/23/17 11:58 Vibha Mccauley RN, Lou Ann 11/24/17 13:15 BERTA Mccauley RN, Lou Ann 11/24/17 13:16[facility] HospitalOperative Reporton [id number] ReportDate of Surgery: 11/23/2017SURGEON: Shaylee Noonan D.O.JAILER: Karl Ramirez CFAPREOPERATIVE DIAGNOSIS: Left knee end-stage osteoarthritis compounded bymorbid obesity with failure of conservative injection carePOSTOPERATIVE DIAGNOSIS: Left knee end-stage osteoarthritis compounded bymorbid obesity with failure of conservative injection careOPERATION: Left total knee arthroplasty compoundedby morbid obesity, BMIgreater than 40ANESTHESIA: General with adductor blockANESTHESIOLOGIST: Esau Porter Jr., D.O.TOURNIQUET TIME: See nurses record, 350 mm HgHARDWARE AND COMPONENTS UTILIZED: DePuy PFC knee system with a #3 PScemented left femur, a #3 fixed tibial tray, 12.5 fixed PS insert and a 32mm cemented patellar buttonHISTORY AND INDICATIONS: Svetlana is a 67 year old female with progressiveleft knee pain that has been recalcitrant to conservative injection care.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 She has had pain, stiffness, achiness.She has x-rays with Grade IV bone on bone findings. [place] had her other knee replaced in years past. Shehas had Cortisone and Viscoat supplementation injections. She has triedice, weight loss, analgesics, Tylenol, Celebrex and Meloxicam in the past.The risks, benefits, complications and reasonable expectations of the aboveprocedure were thoroughly reviewed. Consent form signed and charted. Siteis marked preoperatively. All questions are answered preoperatively.Patient's obesity did compound the perioperative course of dissection andimplant of the knee with increased BMI greater than 40. Antibiotics areprovided weight-based per protocol.PROCEDURE: Patient taken to the Operative Room and placed in the supineposition. Anesthesia is provided. A well padded tourniquet is placed inthe left upper thigh. A sterile urinary Fabian catheter is placed withclear return. Sandbag bolster was positioned. Left lower extremity wasprepped and draped with a Betadine Prep. Time out procedure occurredconsistent with the consent form, history and physical and preoperativemarked site. Landmarks were identified. The leg was exsanguinated with asterile esmarch. The tourniquet is inflated to 350 mm Hg. Midline incisionwas made of approximately 6 . Medial parapatellar arthrotomy was performedand end-stage tricompartmental degenerative changes were noted particularlyin the medial patellofemoral joint. Pulse lavage manager operations and procurement was utilizedthroughout the procedure, a total of 3 liters with 50,000 units ofBacitracin. The femur was sized after intramedullary guide was placed.Distal cut was performed and sized at a #3. Anterior and posterior chamfercuts as well as posterior stabilized box cut was performed. Anteriorcruciate ligament and posterior cruciate ligament were resected. Collateralligaments were protected and balanced. Intermedullary drill and jig devicewas placed in the tibia. The tibia was cut. Gaps were symmetrical.Posterior gutters were clean and free. Capsule was released posteriorlywith a Pappas elevator. 100 cc of Exparel was injected along the capsule,subcutaneous tissue. Pulse lavage manager operations and procurement was utilized for bonepreparation after trial components were placed with full extension, flexionto 110 degrees with adipose impingement. Patellofemoral tracking wasappropriate. All trial componentswere removed after copious irrigation.The DePuy high viscosity smart cement with Gentamicin is mixed. Allcomponents are cemented in place and allowed to harden for 16 minutes. Allcement osteophytes were removed. It was taken through arc of motion anddeemed stable. Once copiously irrigated out 1 gram of Tranexamic Acid isplaced subfascially. The fascia layer is closed with #2 Quill suture in arunning fashion. 2-0 Quill suture closed the subcutaneous tissues. 2-0Monoderm intracuticular suture is placed. Skin Affix liquid glue was placedin the skin and allowed to dry and 10 Aquacel Ag dressing was applied.The tourniquet was deflated. Soft roll wrap was provided with Linda wrap andthe patient was transferred to the Recovery Room in stable and satisfactorycondition. Case clean and elective. Sponge and needle count correct.Specimen none. Patient condition satisfactory.Shaylee Noonan D.O.glsDictated: 11/23/2017 #[id number]: 11/24/2017 #[id number]: Shaylee Noonan D.O.[facility] Comment on above:Result Comment: Electronically Signed By: Shaylee Noonan\.br\Date and Time Signed: 11/24/17 15:22 EDTOperative ReportDate of Surgery: 11/23/2017SURGEON: Esau Porter Jr., D.O.PREOPERATIVE DIAGNOSIS: Postoperative pain control requested by patientand surgeonPOSTOPERATIVE DIAGNOSIS: Postoperative pain control requested by patientand surgeonOPERATION: Ultrasound guided adductor canal femoral nerve block, singleshot, left sideANESTHESIA: Local with monitored anesthesia carePROCEDURE: The patient was interviewed and examined. The anesthesiaoptions were discussed including single shot adductor canal femoral nerveblock for postoperative analgesia. The discussion included the procedure,risks, benefits and alternatives to the procedure. The patient's questionsare all answered and the patient elected to proceed with the single shotfemoral nerve block for postoperative pain relief.The patient was placed on monitors, electrocardiogram, noninvasive bloodpressure machine, and pulse oximetry. I.V. sedation was then administeredwith a total of 2 mg Versed. The lower medial thigh was prepped withChloraPrep and sterilely draped. The anatomy was identified withultrasound. Then under ultrasound guidance, the femoral nerve wasidentified and with a 21 gauge 100 mm Pajunk needle, after attemptedaspiration for blood, a solution of ropivacaine 0.2% plain, a total volumeof 30 cc with Decadron was slowly injected with frequent aspirationswithout signs or symptoms of intravascular injection. The patienttolerated theprocedure well. There were signs and symptoms of a blockwithin minutes after completion of the procedure. The patient thenproceeded to undergo general anesthesia for the proposed procedure.Esau Porter Jr., D.O.lkrDictated: 11/23/2017 #[id number]: 11/23/2017 #[id number]: Esau Porter Jr., D.O.[facility] HospitalComment on above:Result Comment: Electronically Signed By: Esau Porter Jr., DO\.br\Date and Time Signed: 11/24/17 13:37 EDTOperative ReportDate of Surgery: 11/23/2017SURGEON: Shaylee Noonan D.O.JAILER: Karl Ramirez CFAPREOPERATIVE DIAGNOSIS: Right knee end-stage osteoarthritis compounded bymorbid obesity with failure of conservative injection carePOSTOPERATIVE DIAGNOSIS: Right knee end-stage osteoarthritis compounded bymorbidobesity with failure of conservative injection careOPERATION: Left total knee arthroplasty compounded by morbid obesity, BMIgreater than 40ANESTHESIA: General with adductor blockANESTHESIOLOGIST: Esau Porter Jr., D.OFlorinTOURNIQUET TIME: See nurses record, 350 mm HgHARDWARE AND COMPONENTS UTILIZED:DePuy PFC knee system with a #3 PScemented left femur, a #3 fixed tibial tray, 12.5 fixed PS insertand a 32mm cemented patellar buttonHISTORY AND INDICATIONS: Svetlana is a 67 year old female with progressiveleft knee pain that has been recalcitrant to conservative injection care.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 She has had pain, stiffness, achiness.She has x-rays with Grade IV bone on bone findings. [place] and has had her other knee replaced in years past. Shehas had Cortisone and Viscoat supplementation injections. She has triedice, weight loss, analgesics,Tylenol, Celebrex and Meloxicam in the past.The risks, benefits, complications and reasonable expectations of the aboveprocedure were thoroughly reviewed. Consent form signed and charted. Siteis marked preoperatively. All questions are answered preoperatively.Patient's obesity did compound the perioperative course of dissection andimplant of the knee with increased BMI greater than 40. Antibiotics areprovided weight-based per protocol.PROCEDURE: Patient taken to the Operative Room and placed inthe supineposition. Anesthesia is provided. A well padded tourniquet is placed inthe left upper thigh. A sterile urinary Fabian catheter is placed withclear return. Sandbag bolster was positioned. Left lower extremity wasprepped and draped with a Betadine Prep. Time out procedure occurredconsistent with the consent form, history and physical and preoperativemarked site. Landmarks were identified. The leg was exsanguinated with asterile esmarch. The tourniquet is inflated to 350 mm Hg. Midline inc isionwas made of approximately 6 . Medial parapatellar arthrotomy was performedand end-stage tricompartmental degenerative changes were noted particularlyin the medial patellofemoral joint. Pulse lavage manager operations and procurement was utilizedthroughout the procedure, a total of 3 liters with 50,000 units ofBacitracin. The femur was sized after intramedullary guide was placed.Distal cut was performed and sized at a #3. Anterior and posterior chamfercuts as well as posterior stabilized box cut was performed. Anteriorcruciate ligament and posterior cruciate ligament were resected. Collateralligaments were protected and balanced. Intermedullary drill and jig devicewas placed in the tibia. The tibia was cut. Gaps were symmetrical.Posterior gutters were clean and free. Capsule was released posteriorlywith a Pappas elevator. 100 cc of Exparel was injected along the capsule,subcutaneous tissue. Pulse lavage manager operations and procurement was utilized for bonepreparation after trial components were placed with full extension, flexionto 110 degrees with adipose impingement. Patellofemoral tracking wasappropriate. All trial components were removed after copious irrigation.The DePuy high viscosity smart cement with Gentamicin is mixed. Allcomponents are cemented in place and allowed to harden for 16 minutes. Allcement osteophyteswere removed. It was taken through arc of motion anddeemed stable. Once copiously irrigated out 1 gram of Tranexamic Acid isplaced subfascially. The fascia layer is closed with #2 Quill suture in arunning fashion. 2-0 Quill suture closed the subcutaneous tissues. 2-0Monoderm intercuticular suture is placed. Skin Affix liquid glue was placedin the skin and allowed to dry and 10 Aquacel Ag dressing was applied.The tourniquet was deflated. Soft roll wrap was provided with Linda wrap andthe patient was transferred to the Recovery Room in stable and satisfactorycondition. Case clean and elective. Sponge and needle count correct.Specimen none. Patient condition satisfactory.Shaylee Noonan D.O.lkrDictated: 11/23/2017 #[id number]: 11/23/2017 #[id number]: Shaylee Noonan D.O.*Danilo Cedillo [facility] - TrumbullComment on above:Result Comment: Electronically Signed By: Shaylee Noonan\.br\Date and Time Signed: 11/23/17 14:10 EDTOther Comment: DISREGARD, DO NOT USE THIS REPORTPatient Education - [place] [id number] Education - [place], [place]Access OrthopaedicsDISCHARGE INSTRUCTIONS TOTAL KNEE ARTHROPLASTYINCISION CARE:Aquacell dressing can get wet with showers. Please remove 10 days after surgery per instruction sheet. Staple removal day #14 with nursing staff if present. Please notify the office if any increase in redness, tenderness, drainage, fever, or wound separation is noted beyond this point.Compression stockings may be helpful if any significant or uncomfortable swelling in the legs is noted postoperatively. Use and removal instructions should be given by physical therapy. If the swelling is below the knee, knee high compression stockings may suffice. If this does cause swelling into the thigh region, waist high compression stockings may be beneficial as well. These can be obtained from most pharmacies, or can be obtained from the hospital or through Home Health. The mild grade compression stockings are best used initially. When applying or removing the compression stocking, you may need assistance for this as. MEDICATIONS:You may resume your home medications at the time of discharge.Aspirin 325 mg EC oral twice a day for 4 weeks for blood clot prevention.Pain medication has been prescribed as well. You may continue to use the pain medication every four hours as needed. Any narcotic pain medication can cause side effects including stomach upset, constipation, or light-headedness. You should not drive or operate machinery, or use alcohol while using the narcotic pain medication. You should not use other pain medications with this prescription pain medication unless further directed by your physician.PHYSICAL THERAPY:Continue the range of motion and strengthening exercises initiated in Physical Therapy in the hospital. [facility] Discharge Instructs for TKA Page 2Physical Therapy Cont. Continue weight bearing, as ordered, to the operated knee for four to six weeks as directed in Physical Therapy, or until your strength is improved and Physical Therapy will then allow you to progress to full weight. This will be with the use of a walker or crutches initially. After four or six weeks you may then progress to the use of one crutch, or a cane. A quad-cane is preferred as this is more stable.Physical therapy as begun in the hospital will continueat home, possible with the corporate administrative assistant of Home Health Physical Therapy or in the hospital as an outpatient. When you have become independent with the physical therapy program, this will then be discontinued as a supervised program and you will be instructed to continue the physical therapy exercises at home.Your exercises are wilde to successful rehabilitation. You should gain full extension first, hopefully before hospital discharge, then continue to do the exercises to maintain this, and gain 90 degrees flexion by one month post-op. Do the exercises daily, twice if preferred. DRIVING:Please do not drive for 4-6 weeks pending therapy progress. 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 It is therefore advised not to drive until after your first office visit following surgeryFOLLOW-UP OFFICE VISIT: Shaylee Noonan, DOAccess [id number] [place], [place] [phone]: 10-31 [facility] HospitalProgress Note-Physicianon [id number] Note-PhysicianPatient: SVETLANA DAVIS Age: 67 years Sex: Female : 1950 Associated Diagnoses: None Author: Shaylee Noonan DO Chief Complaint Total Knee Arthroplasty POD #1 Review of Systems Constitutional: No fever, No chills. Respiratory: No shortness of breath. Cardiovascular: No chest pain. Psychiatric: Negative. Health Status Allergies: Allergic Reactions (All)Severity Not DocumentedBee Stings- Shortness of breath.Cats- Shortness of breath.Ibuprofen- Hives.Shrimp- Shortness of breath.Sulfa drugs- Hives.Tagamet- Itching.Terramycin- Unknown. Problem list: All ProblemsDepression / SNOMED CT 638554352 / ConfirmedBronchitis / SNOMED CT 33373068 / ConfirmedDuodenum ulcer / SNOMED CT 19395678 / Confirmed I have a sensitive stomach- I know what i can and cannot eat. At risk for falls / SNOMED CT 020995101 / PossibleProblem added when Risk for Falls Careplan was initiated. Physical Examination Gastrointestinal: Soft, Non-tender. Musculoskeletal Mobility/ gait: requires assistance. Lower extremity exam: Swelling as expected. Supple calves.. AROM-PROM limited due to dressing and pain.. Neurologic: Alert, Oriented, Normal sensory, Normal motor function. Psychiatric: Appropriate mood & affect. Review / Management Radiology results: Xray in Recovery Room shows stable position and alignment.. Impression and Plan Diagnosis POD #1 Left TKA compoiunded by obesity BMI>46. Orders Continue mechanical and pharmacologic DVT prophylaxis.Analgesics. PT and OT services.Discharge planning with d/c home later today pending PT treatments..[facility] HospitalComment on above:Result Comment: Electronically Signed By: Shaylee Noonan.br\Date and Time Signed: 11/24/17 05:54 EDTeGFRon [id number] (black)mL/min/{1.73_m2} Normal>=59[facility] HospitalComment on above:Order Comment: Order added by Discern Expert.Result Comment: eGFR is race adjusted. AA=. Performed By: #### [id number] ####[id number] [place], [place] [address]iKYL (non-black)mL/min/{1.73_m2} Normal>=59[facility] HospitalComment on above:Order Comment: Order added by Discern Expert.Result Comment: Chronic kidney disease could be indicated at eGFR's of less than 60 mL/min/1.73m2. Kidney failure is indicated at less than 15 mL/min/1.73m2.Performed By: #### [id number], [id number] ####[address] [address]DZN/Rhon [id number]/Rh PositiveInvalid Interpretation CodeBlanchard Valley Health System [facility] HospitalComment on above: Performed By: #### [id number] ####[address] [address]ZIE/Rh History Checkon [id number]/Rh History CheckVerified Hx Blood TypeNormalBlanchard Valley Health System [facility] HospitalComment on above: Performed By: #### [id number] ####[address] [id number] [id number] Gel InterpNegativeNormal [facility] HospitalComment on above:Performed By: #### [id number], [id number] ####[id number] [place] [address] Anesthesia Consultationon [id number] ConsultationPatient: SVETLANA DAVIS Age: 67 years Sex: Female : 1950 Associ ated Diagnoses: None Author: Esau Porter Jr., DO Preoperative Information Anesthesia history: Patient History: Pt./ family denies any personal or family hx of problems/difficulties with anesthesia.. Re-eval prior to induction: Inital eval reviewed: No significant interval change, NPO 10 hours.. Review of Systems Constitutional: See nursing assessment.. Cardiovascular: Cardiac risk assessment performed. Pt. denies any significant change in their cv hx.. Respiratory: Pt. denies any signicant change in their respiratory status.. Neurologic: Pt. denies any acute neurological changes.. Health Status Allergies: Allergic Reactions (Selected)Severity Not DocumentedBee Stings- Shortness of breath.Cats- Shortness of breath.Ibuprofen- Hives.Shrimp- Shortness of breath.Sulfa drugs- Hives.Tagamet- Itching.Terramycin- Unknown., Allergies (7) Active ReactionBee Stings Shortness of breathCats Shortnessof breathibuprofen HivesShrimp Shortness of breathsulfa drugs HivesTagamet ItchingTerramycin Unknown Current medications: (Selected) Inpatient MedicationsOrderedArixtra 2.5 mg/0.5 mL Injection: 2.5 mg = 0.5 mL, Injection, SubCutaneous, qAM for 10 day(s), Stop date 12/04/17 6:29:00 EDT, Routine, Start date 11/24/17 6:30:00 EDT, Start AM postop day 1Cefazolin 2 gram IVPB: 2 gram = 50 mL, Soln-IV, IV Piggyback, PREOP, Routine, Start date 11/23/17 8:30:00 EDT, 50 mL/hr, Infuse over 1 hour(s)Cefazolin 2 gram IVPB: 2 gram = 50 mL, Soln-IV, IV Piggyback, q8hr for 2 dose(s), Stop date 11/24/17 1:59:00 EDT, Routine, Start date 11/23/17 10:00:00 EDT, 50 mL/hr, Infuse over 1 hour(s)Colace 100 mg Cap: 100 mg = 1 cap(s), Cap, Oral, BID, Routine, Start date 11/23/17 21:00:00 EDTDilaudid 2 mg Injection:1 mg = 0.5 mL, Injection, IV Push, q2hr PRN Pain - Severe for 5 day(s), Stop date 11/28/17 9:59:00 EDT, Routine, Start date 11/23/17 10:00:00 EDTDulcolax 5 mg Tab-EC: 10 mg = 2 tab(s), Tab-EC, Oral, Daily PRN Constipation, Routine, Start date 11/25/17 10:00:00 EDTExparel 1.3% (13.3 mg/mL) injectable suspension: 266 mg = 20 mL, Injection, Misc, Once, Stop date 11/23/17 10:00:00 EDT, Routine, Startdate 11/23/17 10:00:00 EDT, 20 ml given to field with 50 ml 0.9% sodium chloride and 30 ml 0.25% Sensorcaine with epinephrineFleet Enema: 135 mL, Enema, Rectal, Once PRN Other (see comment), Routine,Start date 11/26/17 10:00:00 EDTLactated Ringers IV Ying 1000 mL 1,000 mL: 1,000 mL, IV, 150 mL/hr, Routine, Start date 11/23/17 8:30:00 EDT, 6.7 hour(s), Total volume (mL): 1,000Lactated Ringers IV Ying 1000 mL 1,000 mL: 1,000 mL, IV, 80 mL/hr, Routine, Start date 11/23/17 10:00:00 EDT, 12.5 hour(s), Total volume (mL): 1,000Milk of Magnesia 8% Susp-Oral: 30 mL, Susp-Oral, Oral, BID PRN Constipation, Routine, Start date 11/23/17 10:00:00 EDTOfirmev 10 mg/mL intravenous solution: 1,000 mg = 100 mL, Soln-IV, IV Piggyback, Once, Stop date 11/23/17 10:00:00 EDT, Routine, Start date 11/23/17 10:00:00 EDT, 400 mL/hr, Infuse over 15 minute(s), to be given during total joint replacementPantoprazole [address] Tab: 40 mg = 1 tab(s), Tab-DR, Oral, Daily, Routine, Start date 11/24/17 9:00:00 FZXFsqtbuup325 mg-5 mg Tab: 1 tab(s), Tab, Oral, q4hr PRN Pain - Moderate for 5 day(s), Stop date 11/28/17 9:59:00 EDT, Routine, Start date 11/23/17 10:00:00 EDTPercocet 325 mg-5 mg Tab: 2 tab(s), Tab, Oral, q4hr PRN Pain - Moderate for 5 day(s), Stop date 11/28/17 9:59:00 EDT, Routine, Start date 11/23/17 10:00:00 EDTTylenol 325 mg Tab: 650 mg = 2 tab(s), Tab, Oral, q4hr PRN Pain/Fever, Routine, Start date 11/23/17 10:00:00 EDTVitamin C 500 mg Tab: 500 mg = 1 tab(s), Tab, Oral, BIDWM, Routine, Start date11/23/17 17:00:00 EDTZofran 4 mg/2 mL Injection: 4 mg = 2 mL, Injection, IV Push, q6hr PRN Nausea/Vomiting, Routine, Start date 11/23/17 10:00:00 EDTZoloft 50 mg Tab: 50 mg = 1 tab(s), Tab, Oral, Daily, Routine, Start date 11/23/17 9:00:00 EDTferrous sulfate 325 mg Tab: 325 mg = 1 tab(s), Tab, Oral, BIDWM, Routine, Start date 11/23/17 17:00:00 EDTgabapentin 100 mg Cap: 100 mg = 1 cap(s), Cap, Oral, Daily, Routine, Start date 11/23/17 9:00:00 EDTnalbuphine 20 mg / mL Inj: 5 mg = 0.25 mL, Injection, IV Push, q4hr PRN Pain - Severe, Routine, Start date 11/23/17 10:00:00 EDTtranexamic acid 100 mg/mL intravenous solution: 1,000 mg = 10 mL, Injection, Misc, Once, Stop date 11/23/17 10:00:00 EDT, Routine, Start date 11/23/17 10:00:00 EDT, To be given to the field for injection into the operativesite during the procedure.tranexamic acid 1000 mg/ 50 mL NS IVPB: 1,000 mg = 50 mL, Soln-IV, IV Piggyback, Once, Stop date 11/23/17 10:00:00 EDT, Routine, Start date 11/23/17 10:00:00 EDT, 100 mL/hr,Infuse over 30 minute(s)PrescriptionsPrescribedaspirin 325 mg Tab: 325 mg = 1 tab(s), Oral, BID, X 30 day(s), # 60 tab(s), Refills(s) 0, Pharmacy: [facility] #[id number] MedicationsDocumentedColace 100 mg Cap: 100 mg = 1 cap(s), Oral, BID, Refills(s) 0Percocet 325 mg-5 mg Tab: 1 tab(s), Oral, q4hr Pain - Moderate, Refill(s) 0Percocet 325 mg-5 mg Tab: 2 tab(s), Oral, q4hr Pain - Moderate, Refill(s) 0Vitamin C: 1,000 mg, Chewed, Daily, ProphylaxisZoloft 50 mg Tab: 50 mg = 1 tab(s), Oral, Daily, Depressionacetaminophen: 500 mg, Oral, q6hr, PRN as needed for paincalcium- vitamin D: 1, Oral, Daily, Prophylaxisgabapentin 100 mg Cap: 100 mg = 1 cap(s), Oral, Daily, Pain, Medications (24) ActiveScheduled: (13)acetaminophen 1,000 mg 100 mL, IV Piggyback, Onceascorbic acid 500 mg Tab [F] 500 mg 1 tab(s), Oral, BIDWMbupivacaine liposome 1.3% (13.3 mg/mL) SUSP [F] 266 mg 20 mL, Misc, Oncece FAZolin 2 gram 50 mL, IV Piggyback, PREOPceFAZolin 2 gram 50 mL, IV Piggyback, g2qvwndirnbp sodium 100 mg Cap [F] 100 mg 1 cap(s), Oral, BIDferrous sulfate 325 mg Tab [F] 325 mg 1 tab(s), Oral, BIDWMfondaparinux 2.5 mg/0.5 mL SubQ Ying [F] 2.5 mg 0.5 mL, SubCutaneous, qAMgabapentin 100 mg Cap [F] 100 mg 1 cap(s), Oral, Dailypantoprazole [address] Tab [F] 40 mg 1 tab(s), Oral, Dailysertraline 50 mg Tab [F] 50 mg 1 tab(s), Oral, Dailytranexamic acid 1,000 mg 50 mL, IV Piggyback, Oncetranexamicacid 100 mg/mL SOLN [F] 1,000 mg 10 mL, Misc, OnceContinuous: (2)Lactated Ringers 1,000 mL 1,000 mL, IV, 150 mL/hrLactated Ringers 1,000 mL 1,000 mL, IV, 80 mL/hrPRN: (9)acetaminophen 325 mg Tab UD [F] 650 mg 2 tab(s), Oral, l9aqjojizxykqzndc-unduzcwhu 325 mg-5 mg Tab [F] 1 tab(s), Oral, u1yrfvemgczlkbsbi-gknjwiwqd 325 mg-5 mg Tab [F] 2 tab(s), Oral, c8moxafhwtiaa 5 mg Oral EC Tab [F] 10 mg 2 tab(s), Oral, DailyHYDROmorphone 2 mg/mL Inj [F] 1 mg 0.5 mL, IV Push, i4vlnjgeodiur hydroxide 8% Oral Susp 30 mL [F] 30 mL, Oral, BIDnalbuphine 20 mg/mL Inj 10 mL [F] 5 mg 0.25 mL, IV Push, s9rfzvymvtpucqn 2 mg/mL Inj [F] 4 mg 2 mL, IV Push, w5glptdhsm biphosphate- sodium phosphate 19 g-7 g Rectal Enema 135 mL [F] 135 mL, Rectal, Once Problem list: All ProblemsBronchitis / SNOMED CT 17535419 / ConfirmedDepression / SNOMED CT 133190076 / Confirmed, Active Problems (3)Bronchitis Depression Duodenum ul cer Histories Past Medical History: No active or resolved past medical history items have been selected or recorded. Family History: AsthmaFatherCongenital heart diseaseFatherDiabetes mellitus type 1FatherStrokeMotherPrimary malignant neoplasm of prostateFatherAcute myocardial infarctionMother Procedure history: Caesarean section ([id number]).Cholecystectomy (61103472).History of hernia repair (6416805640).Abdominal hysterectomy (651912071).Arthroplasty of knee (43805544).Comments:10/27/2017 11:32 - Johnathan BELTRAN, JenniferRightColonoscopy ([id number]). Social History Social & Psychosocial LzvymjYrlcuas30/01/2018 Risk Assessment: Denies Alcohol UseSubstance Abuse11/23/2017 Risk Assessment: Denies Substance AhgqiMunyoql51/01/2018 Risk Assessment: Denies Tobacco Use. Physical Examination Vital Signs 11/23/2017 08:59 EDT Heart Rate Monitored 72 bpm Systolic Blood Pressure 170 mmHg HI DiastolicBlood Pressure 82 mmHg Blood Pressure Location Right arm Mean Arterial Pressure, Monitered 111 mmHg11/23/2017 08:11 EDT Heart Rate Monitored 65 bpm Systolic Blood Pressure 145 mmHg HI Diastolic Blood Pressure 105 mmHg HI Mean Arterial Pressure, Monitered 118 mmHg 11/23/2017 08:11 EDT Blood Pressure Location Left arm 11/23/2017 08:10 EDT Temperature Oral 36.6 DegC Heart Rate Monitored 62 bpm Respiratory Rate 16 br/min Systolic Blood Pressure 159 mmHg HI Diastolic Blood Pressure 89 mmHg Mean Arterial Pressure, Monitered 112 mmHg SpO2 97 % 11/23/2017 08:10 EDT Apical Heart Rate 72 bpm Blood Pressure Location Right arm Vitals Signs (last 24 hrs) Last Charted Minimum MaximumTemp 36.6 (NOVEMBER 23 08:10) 36.6 (NOVEMBER 23 08:10) 36.6 (NOVEMBER 23 08:10)Heart Rate 72 (NOVEMBER 23 08:59)62 (NOVEMBER 23 08:10) 72 (NOVEMBER 23 08:10)Resp Rate 16 (NOVEMBER 23 08:10) 16 (NOVEMBER 23 08:10) 16 (NOVEMBER 23 08:10)SBP H 170 (NOVEMBER 23 08:59) H 145 (NOVEMBER 23 08:11) H 170 (NOVEMBER 23 08:59)DBP 82 (NOVEMBER 23 08:59) 82 (NOVEMBER 23 08:59) H 105 (NOVEMBER 23 08:11)MAP 111 (NOVEMBER 23 08:59) 111 (NOVEMBER 23 08:59) 118 (NOVEMBER 23 08:11)SpO2 97 (NOVEMBER 107:10) 97 (NOVEMBER 23 08:10) 97 (NOVEMBER 23 08:10) Pain assessment: Pain Assessment 11/23/2017 08:10 EDT Preliminary Pain Scale 0 11/23/2017 08:10 EDT Pain Symptoms Self Report No, able to self report 11/23/2017 07:55 EDT Pain Symptoms Self Report No, able to self report Primary Pain Location Knee Primary Pain Laterality Left Patient Preferred Pain Tool Numeric rating Numeric Pain Scale 0 = No pain Numeric Pain Score 0 . Airway: Normal oral/pharyngeal anatomy.. Mallampati classification: II (soft palate, fauces, uvula visible). Mouth: Teeth ( lower right molar broken ). Respiratory: Adequate air exchange.. Cardiovascular: Adequate perfusion and function. Review / Management Results review: Lab results 11/23/2017 08:38 EDT ABO/Rh Interp O POS ABSC Gel Interp Negative , No qualifying data available. Patient refused spinal Plan [place] [employer] (ASA) physical status classification: Class II. Anesthetic Preoperative Plan Anesthesia: General. , Regional adductor canal block. Anesthetic plan, risks, benefits, and alternatives discussed with the patient and/or family. Pt. and/or family present and agree to proceed as planned..[facility] HospitalBlood Bank ID#on [id number]#[id number] Interpretation [facility] HospitalComment on above:Performed By: #### [id number] ####Rob [facility] [address] [place], [place] [address]Uiphwfqdftdbjecqf Note - PTon 27-80-5534Eqtbfkymigbtfgzws Note - PTPT Evaluation completed with an AM PAC score of 16/20. Pt required Min A for bed mobility and transfers. Pt was able to ambulate 90 feet with FWW with CGA. Pt performing well POD # 0 and anticipate pt will continue to improve tomorrow to need PT HH services. Will follow daily [facility] HospitalMain OR PACU I Recordon 06-47-1374Fwvl OR PACU I RecordPACU Phase I Document Type FT Summary Primary Physician: Shaylee Noonan DO Finalized Date/Time: 11/23/17 13:06:24 Pt. Name: SVETLANA DAVIS D.O.B./Sex: 1950 Female Med Rec #: [id number] Physician: Shaylee Noonan DO Financial #: [id number] Pt. Type: A Room/Bed: [facility] Admit/Disch: 11/23/17 07:46:06 - Institution: Case Times PACU I FT Pre- Care Text: Identifies barriers to communication and implements measures to provide psychological support Develops individualized plan of care, and ensures continuity of care Maintains patient's dignity and privacy, and maintains patient confidentiality Identifies and reports philosophical, cultural, and spiritual beliefs and values Identifies individual values and wishes concerning care Implements aseptic technique, and administers prescribed antibiotic therapy and immunizing agents as ordered Evaluates postoperative tissue perfusion Implements thermoregulation measures, and monitors body temperature Evaluates postoperative respiratory status Evaluates postoperative cardiac status Evaluates postoperative neurological status Assesses pain control, collaborated in initiating patient-controlled analgesia and implements alternative methods of pain control Verifies allergies, administers prescribed medications and so lutions, evaluates response to medications Entry 1 In PACU I 11/23/17 11:55:00 Discharge from PACU 11/23/17 13:05:00 I Outcomes Met? Yes Last Modified By: Radha Mae RN 11/23/17 13:05:59 Post-Care Text: The patient demonstrates knowledge of the expected response to the operative or invasive procedure The patient's care is consistent with the individualized perioperative plan of care The patient's right to privacy is maintained The patient's value system, lifestyle, ethnicity, and culture are considered, respected, and incorporated into the perioperative plan of care The patient participates in decisions affecting his or her perioperative plan of care The patient is free from signs and symptoms of infection The patient has wound/tissue perfusion consistent with or improved from baseline levels established preoperatively The patient is at or returning to normothermia at the conclusion of the immediate postoperative period The patient's respiratory function is consistent with or improved from baseline levels established preoperatively The patient's cardiovascular status is consistent with or improved from baseline levels established preoperatively The patient's cardiovascular status is consistent with or improved from baseline levels established preoperatively The patient demonstrates and/or reports adequate pain control throughout the perioperative period The patient received appropriate medication(s), safely administered during the perioperative period Acuity Level PACU I FT Entry 1 Start Time 11/23/17 11:55:00 Stop Time 11/23/17 13:05:00 Acuity Level Acuity Level I Last Modified By: Radha Mae RN 11/23/17 13:06:22 Finalized By: Radha Mae RN Document Signatures Signed By: Radha Mae RN 11/23/17 13:06NormACMC Healthcare SystemMain OR Preoperative Recordon [id number] OR Preoperative RecordPreOp Document Type FT Summary Primary Physician: Shaylee Noonan DO Finalized Date/Time: 11/23/17 10:39:38 Pt. Name: JAM DAVISLuis Tony/Sex: 1950 Female Med Rec #: [id number] Physician: Shaylee Noonan DO Financial #: [id number] Pt. Type: A Room/Bed: [facility] Admit/Disch: 11/23/17 07:46:06 - Institution: Case Times PreOp FT Pre-Care Text: Verifies consent for planned procedure, identifies individual values and wishes concerning care, includes family members in perioperative teaching Entry 1 Patient Times. In Pre Surgery 11/23/17 07:55:00 Out Pre Surgery 11/23/17 09:50:00 Outcomes Met? Yes Last Modified By: Klaudia Daly RN 11/23/17 10:39:33 Post-Care Text: The patient participates in decisions affecting his or her perioperative plan of care Finalized By: Klaudia Daly RN Document Signatures Signed By: Klaudia Daly RN 11/23/17 10:39NormalBlanchard Valley Health System [facility] HospitalUA With Cult Reflexon 63-54-9072Zutcfwwds Ql (U)NegativeNormalNegativeBlanchard Valley [facility] Comment on above:Performed By: #### [id number], [id number] ####[facility] [address] [place], [place] [address]TSSWD:TYPE:PT:URINE:NOM:AUTO YELLOWNormalYellowBlanchard Valley Health System [facility] Valley HospitalComment on above:Performed By: #### [id number], [id number] ####Rivas [facility] [address] [place], [place] [address]Kozygomuxopl (RBC)2-5Rzxwom5-1Sufktp [facility] Comment on above:Performed By: #### [id number], [id number] ####[address] [address]PRMMXNU:MCNC:PT:URINE:QN:TEST STRIPNegativeNormalNegativeBlanchard Valley [facility] System [facility] HospitalComment on above:Performed By: #### [id number], [id number] ####[place] [address]KETONES:MCNC:PT:URINE:QN:TEST STRIPNegativeNormal NegativeBlanchard Valley Health System [facility] Valley HospitalComment on above:Performed By: #### [id number], [id number] ####[place] [address]LEUKOCYTES:PRTHR:PT:URINE:ORD:AUTOMATEDNegativeNormalNegativeBlanchard Valley [facility] System [facility] Valley HospitalComment on above:Performed By: #### [id number], [id number] ####[place] [address]UA Spec Desc FoleyNormACMC Healthcare SystemComment on above:Performed By: #### [id number], [id number] ####[address] [address]Kqhhg, clarityCLEARNormalClearBlanchard Valley [facility] System [facility] Comment on above:Performed By: #### [id number], [id number] ####[address] [address]Sjtep, hemoglobin presence NegativeNormalNegLakeHealth Beachwood Medical CenterComment on above:Performed By: #### [id number], 3331002 ####[address] [address]Gvyek, leukocytes in mxibzuvfi3-2Sazzcs9-7Jztnmh [facility] CenterComment on above:Performed By: #### [id number], 0743609 ####[address] [address]Zhope, nitrite presenceNegativeNormalNegLakeHealth Beachwood Medical CenterComment on above: Performed By: #### [id number], 9444076 ####[place] [address]Urine, pH7.0 [pH]Invalid Interpretation Code5.0-9.0[facility] HospitalComment on above:Performed By: #### [id number], [id number] ####[place], [place] [address]Urine, proteinNegativeNormalNegativeBlanchard Valley Health System [facility] Valley HospitalComment on above:Performed By: #### [id number], [id number] ####[address], specific gravity1.010Invalid Interpretation Code1.005-1.030[facility] Comment on above:Performed By: #### [id number], [id number] ####[address], squamous cells in zudehwac1-4Kyeojq9-3Krslmn [facility] Medical CenterComment on above:Performed By: #### [id number], 8481898 ####[place] [address]Urine, urobilinogen0.2 {Tomer'U}/dLNormal0.0-1.0[facility] HospitalComment on above:Performed By: #### [id number], 7099661 ####[place] [address]XR Knee 1 or 2 Views Lefton 94-79-3905MI Knee 1 or 2 Views LeftExam Date/Time:11/23/2017 12:16 EDTReason for Exam:Post-op evaluation;Other (please specify)ReportIMPRESSION: LEFT TOTAL KNEE REPLACEMENT.CLINICAL INFORMATION: PostopCOMMENT: 2 views. There is a left total knee prosthesis, in good position andalignment. There is gas in the soft tissues from the surgery. FINAL REPORT Dictated: 11/23/2017 2:47 pm Stas Alcantara M.D. Signed (Electronic Signature): 11/23/2017 2:47 pm Signed by: Stas Alcantara M.D. Transcribed by: THOR Technologist: [facility] HospitalC Urineon [id number] culture, bacteriaMicrobiologyPROCEDURE: Urine Culture [R1] U CleanCatch BODY SITE:COLLECTED DATE/TIME: 10/27/2017 11:58 EDT RECEIVED DATE/TIME: 10/28/2017 09:48 EDTSTART DATE/TIME: 10/28/2017 09:48 EDT FREE TEXT SOURCE:Shaylee Noonan Michael T.FINAL REPORTSFinal Report [] Verified Date/Time: 10/30/2017 09:23 EDT1,000 cfu/ml Mixed skin contaminantsPerforming LocationsR1: This test was performed at: [facility], [address] [place] [address], [address] [phone] HospitalComment on above:Performed By: #### [id number], [id number] ####[facility] [address] [place], [place] [address]Whtumf Summary.on 08-48-2027Ygajiz Summary.CODING DATE: 10/28/2017 FINAL [facility] STATUS: Home (Routine DC) PAYOR: Medicare ADMIT DX: REASON FOR VISIT DX: Z13.6 Encounter for screening for cardiovascular disorders FINAL DX: PRINCIPAL: Z13.6 Encounter for screening for cardiovascular disorders SECONDARY: R63.5 Abnormal weight gain R94.6 Abnormal results of thyroid function studies PROCEDURES DOCTOR NAME DATE NOTE:The code number assigned matches the documented diagnosis and / or procedure in the patient's chart. However, the narrative phrase printed from the coding software may appear abbreviated, or result in slightly different terminology. Coded By: Annabel Sotelo Date Saved: 10/28/2017 01:09 pmNKettering Health Main CampusABO/Rh Retypeon 16-01-8225UPK/Rh Retype InterpPositiveInvalid Interpretation [facility] HospitalComment on above:Performed By: #### [id number] ####[facility] [address] [place], [place] [address]IUGau 46-39-3540Xhov adxgtmcy50 mg/dLNormal5-21[facility] HospitalComment on above:Performed By: #### 8429115, 1953818, 27799630, 6505006, 7472641, 6456264 ####[place] [address] [place], [place] [address]PTC w/Indiceson 22-34-4713Jlcrxxmwxwi distribution width Auto Ratio (RBC)14.3 %High10.9-14.2FGalion HospitalComment on above: Performed By: #### [id number], 0230766, 65721766, 2582073, 5555124, 6608775 ####[place] [address] [place] [address] Erythrocytes (RBC)4.8 E12/LNormal4.3-5.9[facility] HospitalComment on above:Performed By: #### 8768151, 1941163, 87399551, 5808789, 3417968, 4382504 ####[address] [address] Hematocrit (HCT)40.2 %Apxwel26.0-46.0[facility] HospitalComment on above:Performed By: #### 3903005, 3678327, 18305637, 2716890, 5496272, 1728150 ####[address] [address] Hemoglobin mass conc (Bld)13.8 g/iEVnuxtl05.0-16.0[facility] Comment on above:Performed By: #### 7353576, 4989244, 98801685, 9854027, 0469251, 7162691 ####[place] [address] [place], [place] [address]AMB08.7 ddQbwlcu86.0-34.0[facility] HospitalComment on above:Performed By: #### 0065653, 2650272, 51318949, 9262174, 6006113, 7253698 ####[facility] [address] [place], [place] [address]PRIS mass conc (RBC)34.4 g/vKNyimty45.4-39.3FGalion Hospital Comment on above:Performed By: #### 1954570, 7462402, 00943564, 1931571, 4998233, 2308850 ####[place] [address] [place], [place] [address]ZHW57.6 kVGtdala79.0-100.0[facility] HospitalComment on above:Performed By: #### 1535900, 6031022, 54898987, 2059569, 9157897, 2517860 ####[address] [address]Vrokrqzt mean volume (PMV)8.0 fLNormal6.4-10.8[facility] Comment on above:Performed By: #### 9640478, 9437006, 11053591, 9998998, 5303508, 0985945 ####[address] [address]Pswtoyqrb759.0 E9/HRreuev706.0-500.0[facility] HospitalComment on above:Performed By: #### 7902285, 1413787, 16353598, 6780782, 4931779, 4524910 ####[address] [address]CBH (Leukocytes)7.4 E9/LNormal4.0-11.0[facility] HospitalComment on above:Performed By: #### 9720281, 1011589, 06587867, 7681225, 7885074, 0418043 ####[address] [address]Azcfrbciaoac 59-71-4250Ppitbkkgpn7.9 mg/dLNormal0.5-1.3 [facility] HospitalComment on above:Performed By: #### 4806639, 7975247, 72625915, 1076024, 7120935, 2057469 ####[facility] [address] [place], [place] [address]Isgl T4on 53-74-0647Ziwloxzrg (T4) free0.73 ng/dLNormal0.58-1.64[facility] HospitalComment on above: Performed By: #### [id number] ####[facility] [address] [place], [place] [address]Foyenxmbf 66-02-4067Rassfee mass conc82 mg/dLNormal 55-199[facility] HospitalComment on above:Performed By: #### 7907608, 6340992, 45480894, 5274147, 6790510, 5928332 ####[facility] [address] [place], [place] [address]Exxpzrsytbhyrugpa Note - Wool Broker on 15-72-7803Ezzymcznmwbdixbyf Note - Case ManagerSurgery: left knee with noonan on iving Situation: spouseDME: fww, caneAnticipated [facility] Transportation[facility]Ph[facility]PCP: castilloDiscussed anticipated d/c date, rounding, hospitalist program, PT/OT safe recommendations.Does not want blockNormalBlanchard Valley Health System [facility]ard Valley HospitalLipid Panel on 43-95-2732Fmmitzzsnml460 mg/dSAmhgqo620-604YpabbaBlanchard Valley Health System [facility] HospitalComment on above:Performed By: #### [id number] ####[facility] [address] [place], [place] [address]Ixtqwyybofp in VLDL mass conc33 mg/dL Normal7-40[facility] HospitalComment on above:Performed By: #### [id number] ####[facility] [address] [place], [place] [address]RNH Gweymaitenp82 mg/dLInvalid Interpretation CodeBlanchard Valley Health System [facility]ard Valley HospitalComment on above:Result Comment: HDL > or equal to 60 mg/dL: Low cardiovascular riskHDL < 40 mg/dL : High cardiovascular riskPerformed By: #### [id number] ####[place] [address] [place], [place] [address]NAE Rmjjwckseih701 mg/dLNormal<=129[facility] HospitalComment on above:Performed By: #### [id number] ####[place] [address] [place], [place] [address]Fljestcdtxji336 mg/dLHigh<=149[facility] HospitalComment on above:Performed By: #### [id number] ####[address] [address]Fqtsowd 49-88-6696Ratgu gap11 mmol/LNormal6-16[facility] HospitalComment on above:Performed By: #### 1356784, 7573509, 44576708, 4919498, 7318245, 4704897 ####[address] [address]Vjrkcmhk659 mmol/LNormal 101-111[facility] HospitalComment on above:Performed By: #### 4408539, 4610200, 10726434, 0384115, 1645799, 9080698 ####[address] [address]QU[address] mmol/XRnpwub50-06KllwhzBlanchard Valley Health System [facility] HospitalComment on above:Performed By: #### 9154252, 5680963, 24968191, 2125533, 4466499, 9994365 ####[address] [address]Fmravzpse molar conc3.8 mmol/LNormal3.5-5.3FGalion HospitalComment on above:Performed By: #### 6451490, 5064619, 63152212, 5340113, 9427589, 9151892 ####[place] [address] [place], [place] [address]Ylelzn474 mmol/MBlryxo817-447MsleafBlanchard Valley Health System [facility] Comment on above:Performed By: #### 8020077, 2346161, 27059232, 3715597, 3889004, 9077510 ####[address] [address]QYVau 28-85-9691Aibfrcj stimulating hormone (TSH)0.38 mcIU/mLNormal0.34-5.60[facility] HospitalComment on above:Performed By: #### [id number] ####[address] [address]Mnrxszykbonz 09-89-1387Jmbtxbilu Ql (U)NegativeNormalNegLakeHealth Beachwood Medical CenterComment on above:Performed By: #### 86082597, 0801767 ####[place] [address] COLOR:TYPE:PT:URINE:NOM:AUTOSTRAWAbnormalYelWestern Reserve Hospital Comment on above:Performed By: #### 36473348, 5565705 ####[place], [place] [address]Erythrocytes (RBC)3-4Azmahq1-9 [facility] HospitalComment on above:Performed By: #### [id number], 8175183 ####[place] [address] GLUCOSE:MCNC:PT:URINE:QN:TEST STRIPNegativeNormalNegativeBl[facility]ard [facility] System [facility] HospitalComment on above:Performed By: #### [id number], 8731496 ####[place] [address] KETONES:MCNC:PT:URINE:QN:TEST STRIPNegativeNormalNegLakeHealth Beachwood Medical CenterComment on above:Performed By: #### [id number], 9226466 ####[place] [address] LEUKOCYTES:PRTHR:PT:URINE:ORD:AUTOMATED2+AbnormalNegativeBlanchard Valley Health System [facility] Valley HospitalComment on above:Performed By: #### 44936988, 2955387 ####[place], [place] [address]UA Spec DescClean CatchNormalBlanchard Valley Health System [facility] HospitalComment on above:Performed By: #### 60381780, 3981178 ####[place] [place] [address] [place], [place] [address]Tlwwh, clarityCLEARNormalClearBlanchard Valley Health System [facility] Comment on above:Performed By: #### 63771282, 4757146 ####Rob [place] [address] [place], [place] [address]Mqcmx, hemoglobin presence NegativeNormalNegativeBlanchard Valley Health System [facility] Valley HospitalComment on above:Performed By: #### 48516047, 2461850 ####[address], [place] [address]Sxfbu, leukocytes in fcurnjoyn7-27Ypqcnryu4-1Eqgteg [facility] CenterComment on above:Performed By: #### 86369914, 1487377 ####[place] [id number], nitrite presenceNegativeNormalNegativeBlanchard Valley Health System Bl[facility]ard Valley HospitalComment on above: Performed By: #### [id number], [id number] ####Rivas [address], [place] [address]Jgdgx, pH5.5 [pH]Invalid Interpretation Code5.0-9.0[facility] HospitalComment on above:Performed By: #### [id number], [id number] ####Rivas [place] [id number], proteinNegativeNormalNegativeBlanchard Valley Health System Bl[facility] Valley HospitalComment on above:Performed By: #### [id number], [id number] ####[address] [address]Mxoah, specific gravity<=1.005Invalid Interpretation Code1.005-1.030[facility] Comment on above:Performed By: #### [id number], [id number] ####Rivas [address], [place] [address]Hfzkv, squamous cells in hgefflqv8-4Zihbfy9-2Fwatnc [facility] Medical CenterComment on above:Performed By: #### [id number], [id number] ####Rob [facility] [address] [place], [place] [address]Tdqak, urobilinogen0.2 {Tomer'U}/dLNormal0.0-1.0[facility] Valley HospitalComment on above:Performed By: #### [id number], [id number] ####[facility] [address] [place], [place] [address]RN Chest 2 Viewson [id number] Chest 2 ViewsExam Date/Time:10/27/2017 13:51 EDTReason for Exam:PRE OPReportIMPRESSION: NO ACUTE PROCESSCLINICAL HISTORY: Presurgical testing. Knee surgery. Nonsmoker.COMPARISON: Frontal and lateral views the chestwere obtained. The heart is notenlarged. Mediastinum is not widened. The aorta is not dilated. There is no acuteprocess in the lungs. The chest wall is unremarkable.FINDINGS: No acute process FINAL REPORT Dictated: 10/27/2017 3:48 pm Olivia Norris MD. Signed (Electronic Signature): 10/27/2017 3:48 pm Signed by: Olivia Norris MD Transcribed by: THOR Technologist: [facility] HospitaleGFRon 11-12-0670dLPI (black)mL/min/{1.73_m2}Normal>=59[facility] HospitalComment on above: Order Comment: Order added by Discern Expert.Result Comment: eGFR is race adjusted. AA=.Performed By: #### [id number], [id number], [id number] ####[facility] [address] [place], [place] [address]bEEI (non-black)mL/min/{1.73_m2}Normal>=59[facility] HospitalComment on above:Order Comment: Order added by Discern Expert. Result Comment: Chronic kidney disease could be indicated at eGFR's of less than 60 mL/min/1.73m2. Kidney failure is indicated at less than 15 mL/min/1.73m2. Performed By: #### [id number], [id number], [id number], [id number], [id number], [id number] ####Rivas [facility] [address] [place] [address] Vital Signs Date TimeVital SignValuePerforming LywdastapGsvmwmhn97-32-1764 12:56-0400Body ixcoip862.6 cmEdy Andrews MD Work Phone: [facility] HospitalSwtuhdqkuq79-55-7103 12:56-0400Body mass index (BMI) [Ratio]40.68 kg/m6BpwkraEdy Andrews MD Work Phone: [facility] HospitalWamgnyynua61-17-3695 12:56-0400Body rougnm569.5 kgEdy Andrews MD Work Phone: [facility] HospitalPufxdkuddl29-46-8338 12:56-0400Diastolic blood ksdjzngy28 mm[Hg]Edy Andrews MD Work Phone: [facility] HospitalHgnjwcyjbj28-70-6833 12:56-0400Heart rate66 /min Edy Andrews MD Work Phone: [facility] HospitalAjhqxlxyto08-90-1982 12:56-0400Systolic blood mm[Hg]Edy Andrews MD Work Phone: [facility] HospitalWyspngkahb23-00-3064 12:38-0400Body drjbon020.6 cmDaksha Moon DO Work Phone: [facility]10-14-2025 12:38-0400Body mass index (BMI) [Ratio]41.88 kg/m2Daksha Louies DO Work Phone: [facility]10-14-2025 12:38-0400Body stanul644.68 kgDaksha Moon DO Work Phone: [facility]10-14-2025 12:38-0400Diastolic blood kraieuej21 mm[Hg]Daksha Moon DO Work Phone: [facility]10-14-2025 12:38-0400Systolic blood inwqtzxb586 mm[Hg]Daksha Moon DO Work Phone: [facility] Utmvbs81-75-4264 16:34-0400Body udndok543.6 cmDaksha Moon DO Work Phone: [facility] Pibqlu73-08-6215 16:34-0400Body mass index (BMI) [Ratio]41.96 kg/m2Jopipo Moon DO Work Phone: [facility] Zzxxwk58-64-7315 16:34-0400Body lkjmmzarvdd93 [degF]Daksha Moon DO Work Phone: [facility]10-13-2025 16:34-0400Body qfxjyx838.95 kgJopipo Moon DO Work Phone: [facility] Wjlpab15-53-8081 16:34-0400Diastolic blood onlgmhkz68 mm[Hg]Daksha Moon DO Work Phone: [facility] Eedwps67-67-3903 16:34-0400Heart rate 73 /minDaksha Moon DO Work Phone: [facility] Mvnhkf46-62-8956 16:34-0400 Respiratory rate18 /minDaksha Moon DO Work Phone: [facility] Rqzpra17-48-0449 16:34-3207WmP8% (BldA) [Mass fraction]98 %Daksha Moon DO Work Phone: [facility] Fvhvwa82-60-1403 16:34-0400Systolic blood hxglchou870 mm[Hg]Daksha Moon DO Work Phone: [facility]09-23-2025 09:31-0400Body smavgp044.6 cmEdy Andrews MD Work Phone: [facility] HospitalHjcsomuyse92-88-4365 09:31-0400Body mass index (BMI) [Ratio]40.68 kg/m7ZfnyzrEdy Andrews MD Work Phone: [facility] HospitalUaulyxkrve84-60-8680 09:31-0400Body vvaogi942.5 kgEdy Andrews MD Work Phone: [facility] HospitalMesmghgbun25-25-9067 09:31-0400Diastolic blood vavtxoea14 mm[Hg]Edy Andrews MD Work Phone: [facility] HospitalWisosagaqo17-44-9034 09:31-0400Heart rate69 /min Edy Andrews MD Work Phone: [facility] HospitalPqpravsgdr99-11-0851 09:31-0400Systolic blood bdcsjsel118 mm[Hg]Edy Andrews MD Work Phone: [facility] HospitalYfqjqalfze64-63-5410 14:31-0400Body sybgdp465.6 cmJopipo Louies DO Work Phone: [facility] Acrvyo51-93-0583 14:31-0400Body mass index (BMI) [Ratio]40.73 kg/m2Daksha Louies DO Work Phone: [facility] Centerkissnofrog Hsqwqv07-36-0837 14:31-0400Body llwvmyvvyfr75.59 [degF]Daksha Louies DO Work Phone: [facility] Centerkissnofrog Njfvah50-19-5268 14:31-0400Body .68 kgDaksha Louies DO Work Phone: [facility] Ichloo07-30-8275 14:31-0400Diastolic blood qyvdhtet02 mm[Hg]Daksha Louies DO Work Phone: [facility] Centerkissnofrog Sxjuau67-50-1124 14:31-0400Heart rate 57 /minDaksha Louies DO Work Phone: [facility] Centerkissnofrog Qespro10-91-3959 14:31-0400 Respiratory rate20 /minDaksha Louies DO Work Phone: [facility] Centerk[facility]nofrog Bgiqep16-47-1971 14:31-2600KlD8% (BldA) [Mass fraction]99 %Daksha Moon DO Work Phone: [facility]09-10-2025 14:31-0400Systolic blood ztsowjsy087 mm[Hg]Daksha Louies DO Work Phone: [facility]09-03-2025 12:35-0400Body .56 cmJopipo Louies DO Work Phone: [facility]09-03-2025 12:35-0400 Body mass index (BMI) [Ratio]40.3 kg/m2Jopipo Charleshas DO Work Phone: [phone] [place], [place] [address]885309-03-2025 12:35-0400 Body .2 [degF]Daksha Louies DO Work Phone: [phone] [place], [place] 5885309-03-2025 12:35-0400 Body kzjqfy077.59 kgJopipo Louies DO Work Phone: [phone]09-03-2025 12:35-0400 Diastolic blood mm[Hg]Daksha Moon DO Work Phone: [phone]09-03-2025 12:35-0400 Heart rate74 /Shaan Louies DO Work Phone: [phone]09-03-2025 12:35-0400 Respiratory rate20 /minDaksha Louies DO Work Phone: [phone]09-03-2025 12:35-0400 SaO2% (BldA) [Mass fraction]97 %Daksha Louies DO Work Phone: [phone]09-03-2025 12:35-0400 Systolic blood mm[Hg]Daksha Louies DO Work Phone: [facility]08-01-2025 08:52-0400 Body .6 cmMichael Noonan DO Work Phone: [facility] HospitalOrhscunygf86-10-4089 08:52-0400Body mass index (BMI) [Ratio]41.37 kg/g4Ghkmbth Noonan DO Work Phone: [facility] HospitalPwesibljkt79-24-2618 08:52-0400Body hpensm234.32 kgMichael Noonan DO Work Phone: [facility] HospitalZzcxdrlxez95-03-6908 08:22-0400Body uutjwt813.6 cmVmedina Cedillo APRN-[employer] INSTRUCTOR Work Phone: [facility]04-07-2025 08:22-0400Body mass index (BMI) [Ratio]42.86 kg/r2PsqvnrmDanilo Cedillo APRN-[employer] IN[employer]CTOR Work Phone: [facility]04-07-2025 08:22-0400Body ghcaueatogr79.81 [degF]Danilo Cedillo DIE GRINDER-[employer] INSTRUCTOR Work Phone: [facility]04-07-2025 08:22-0400Body plhahu795.26 kgDanilo Cedillo APRN-[employer]OCK [employer]IM[employer]ING INSTRUCTOR Work Phone: [facility]04-07-2025 08:22-0400Diastolic blood umeobbcj74 mm[Hg]Danilo Cedillo APRN-[employer] IN[employer]CTOR Work Phone: [facility]04-07-2025 08:22-0400Heart rate 64 /minDanilo Cedillo APRN-[employer] IN[employer]CTOR Work Phone: [facility]04-07-2025 08:22-0400 Respiratory rate18 /minDanilo Cedillo DIE GRINDER-[employer] INSTRUCTOR Work Phone: [facility]04-07-2025 08:22-7340WzG0% (BldA) [Mass fraction]96 %Danilo Cedillo APRN-[employer] INSTRUCTOR Work Phone: [facility]04-07-2025 08:22-0400Systolic blood zoxzzlzq215 mm[Hg]Danilo Cedillo DIE GRINDER-[employer]OCK [employer]IM[employer]ING INSTRUCTOR Work Phone: [facility] Gwammj31-14-2229 13:03-0500Body eojjcp145.6 cmVmedina Cedillo APRN-[employer]OCK [employer]IM[employer] INSTRUCTOR Work Phone: [facility] Qbider59-41-0736 13:03-0500Body mass index (BMI) [Ratio]42.86 kg/c6SujdboqDanilo Cedillo APRN-[employer]OCK [employer]IM[employer] INSTRUCTOR Work Phone: [facility] [employer] Wszgis19-38-2158 13:03-0500Body .81 [degF]Danilo Cedillo APRN-[employer] INSTRUCTOR Work Phone: [facility] [employer] Elilqz16-77-0337 13:03-0500Body ygxvwq950.31 kgDanilo Cedillo APRN-R[employer] INSTRUCTOR Work Phone: [facility] Ddaydb11-86-6134 13:03-0500Diastolic blood mkjizqrm73 mm[Hg]Danilo Cedillo APRN-[employer] IN[employer]CTOR Work Phone: [facility] Onfgnq33-07-2167 13:03-0500Heart rate 67 /minDanilo Cedillo APRN-[employer] IN[employer]CTOR Work Phone: [facility] Peuvjy12-21-2687 13:03-0500 Respiratory rate18 /minDanilo Cedillo APRN-ROCK [employer]IM[employer] INSTRUCTOR Work Phone: [facility] Pxddhe34-76-9860 13:03-2876ZzS6% (BldA) [Mass fraction]99 %Danilo Cedillo APRN-[employer] INSTRUCTOR Work Phone: [facility] Psilmg45-87-1584 13:03-0500Systolic blood igafkqbm172 mm[Hg]Danilo Cedillo APRN-[employer] IN[employer]CTOR Work Phone: [facility] Ipjtxi05-78-6586 13:41-0500Body mass index (BMI) [Ratio]42.96 kg/y4Csvuvo Chantal DIE GRINDER-[employer] INSTRUCTOR Work Phone: [facility] Jemguh69-64-9965 13:41-0500Body rzpeigwsnxz66.1 [degF]Hemanth Chantal DIE GRINDER-[employer]ING INSTRUCTOR Work Phone: [facility]Stra[facility] Kvrxdc91-21-5497 13:41-0500Body pfjuke021.53 kgHemanth DREW Work Phone: [facility] Centerkissnofrog Vkdnpn56-09-8072 13:41-0500Diastolic blood krobkcpj03 mm[Hg]Hemanth DREW Work Phone: [facility]Stra[facility] Yjytbj76-54-2202 13:41-0500Heart rate 60 /minHemanth DREW Work Phone: [facility] HospitalPharmaCan Capital02-06-2025 13:41-0500 Respiratory rate20 /minHemanth DREW Work Phone: [facility] Centerkissnofrog Vmostb3507 13:41-4105UhD8% (BldA) [Mass fraction]98 %Hemanth DREW Work Phone: [facility] Centerkissnofrog Itowgj69-02-8852 13:41-0500Systolic blood knnzgxog944 mm[Hg]Hemanth DREW Work Phone: [facility] [employer] [facility] Encounters Encounter DateEncounter TypeCare ProviderFacilityStart: 05-23-2025 End: 62-28-6409Pgvvfb flowsheetEdy Andrews MD Work Phone: [facility] [place] OtolaryngologyStart: 05-23-2025 End: 23-74-9678Qqvgej flowsheetEdy Andrews MD Work Phone: [facility] [place] OtolaryngologyStart: 05-23-2025 End: 69-75-1146Oersyd outpatient visit 40 minutesHiyas Andrews MD Work Phone: [facility] [place] OtolaryngologyComment on above:Chronic maxillary sinusitis (Primary Dx); DNS (deviated nasal septum)Start: 05-23-2025 End: 77-66-3871xlqiludhcyYHOLGW H TIMMISNot AvailableStart: 05-14-2025 End: 86-92-7249htelehwniqBXLMYT H TIMMISNot AvailableStart: 05-08-2025 End: 05-63-2034Fzheqju encounter procedureSaraipipo Louieteri DO Work Phone: [facility] Internal Medicine - Family MedicineComment on above:Encounter for subsequent annual wellness visit (AWV) in Medicare patient (Primary Dx)Start: 05-08-2025 End: 00-53-1162kytmjapbijCHFQCVHForks Community Hospital [facility] Start: 05-07-2025 End: 90-04-7059Hbtxot outpatient visit 25 minutesDaksha Moon DO Work Phone: [facility] Internal Medicine - Family MedicineComment on above:Chronic sinusitis, unspecified location (Primary Dx); Moderate persistent allergic asthma; Mixed hyperlipidemia; Thrush, oralStart: 05-07-2025 End: 62-47-1630OrddhfUiyg L Yudarenteri DO Work Phone: [facility] - Family MedicineComment on above:Thrush, oralStart: 04-17-2025 End: 20-53-5834Uyvhgz Grey Andrews MD Work Phone: [facility] [place] OtolaryngologyStart: 04-17-2025 End: 37-53-3874Obbfwgtabatha Andrews MD Work Phone: [facility] [place] OtolaryngologyStart: 04-17-2025 End: 52-17-8027Vcagxh outpatient visit 25 minutesEyd Andrews MD Work Phone: [facility] [place] OtolaryngologyComment on above:Chronic maxillary sinusitis (Primary Dx); Chronic ethmoidal sinusitis; DNS (deviated nasal septum)Start: 04-17-2025 End: 72-65-1353dydfilqjrnHMRANB H TIMMISNot AvailableStart: 04-12-2025 End: 20-88-4971Kgxxoj Monie Vance DO Work Phone: [facility] - Family MedicineComment on above:Chronic sinusitis, unspecified location (Primary Dx); Nasal septal deviationStart: 04-09-2025 End: 17-57-5708skyqsglxuiAWZJ [facility] HospitalStart: 04-04-2025 End: 05-08-3143Uvdumy outpatient visit 25 minutesSaraipipo Moon DO Work Phone: [facility] - Family [facility] HospitalComment on above:Chronic pansinusitis (Primary Dx); Moderate persistent allergic asthma; Mixed hyperlipidemia; Hypothyroidism, unspecified type; IFG (impaired fasting glucose)Start: 04-04-2025 End: 82-69-2369ljggidtbspBWVLMercy Hospital [facility] PPGStart: 03-28-2025 End: 60-22-4115ggrdaerifaXkkj Yuhas DO Work Phone: [facility] Work Phone: Start: 03-28-2025 End: 57-33-5629Pkjhlsx encounter procedureLapedro Dumont APRN-[facility] [place] Work Phone: Start: 03-06-2025 End: 37-66-4608Ncgcdbuyc encounterAlemichael WHITEAProMedgeorgiana medical center Phys[facility] Centertart: 02-23-2025 End: 24-07-3504Jtimxdq encounter procedureShaylee Noonan DO Work Phone: [facility] [place] OrthopaedicsComment on above:Status post bilateral knee replacements (Primary Dx)Start: 02-23-2025 End: 51-15-1652upenfyfngfUNTISEY T POWERSNot AvailableStart: 11-01-2024 End: 70-03-6727ifnvhtqqybKZMPGKL J CASTILLOMercy Health [facility] Hospital HospitalStart: 10-30-2024 End: 07-00-2085Iqobss outpatient visit 25 minutesDanilo Cedillo DIE GRINDER-[employer] INSTRUCTOR Work Phone: [facility] Internal Medicine - Family MedicineComment on above:Recurrent major depression in remission (Primary Dx); Obesity, morbid ([facility]-H[facility]); Moderate persistent asthma with allergic rhinitis without complication; Fibromyalgia; Mixed hyperlipidemia; Neck painStart: 10-30-2024 End: 51-61-4400gielyisieiLUEHZUTForks Community Hospital [facility] Start: 09-17-2024 End: 48-89-0143TytqyaTfjyjfz J Cedillo DIE GRINDER-[employer] INSTRUCTOR Work Phone: [facility] Internal Medicine - Family MedicineComment on above:Recurrent major depression in remission ([facility]-H[facility])Start: 09-12-2024 End: 51-98-4648Fzebst outpatient visit 15 minutesBrigantineklarissa Cedillo DIE GRINDER-[employer] INSTRUCTOR Work Phone: [facility] Internal Medicine - Family [facility] HospitalComment on above:Acute non-recurrent maxillary sinusitis (Primary Dx); Flu-like symptoms; Moderate persistent allergic asthmaStart: 09-12-2024 End: 70-99-9675dixrhrbaofWZFBPVMAllianceHealth [facility] Start: 09-01-2024 End: 86-55-8736Heshvd outpatient visit 15 Oriana Zamarripa MD Work Phone: DiMcL[facility] - Medical OncologyComment on above:Ductal carcinoma in situ (DCIS) of right breast (Primary Dx)Start: 09-01-2024 End: 18-46-2211jzbpaxzerePWCDCMission Community Hospitaltart: 08-31-2024 End: 32-26-9472Dochjr outpatient visit 15 minutesHemanth Maxwell DIE GR[employer] INSTRUCTOR Work Phone: [facility] Internal Medicine - Family MedicineComment on above:Acute non-recurrent maxillary sinusitis (Primary Dx) Start: 08-31-2024 End: 31-65-6661bynarryxagBDMTDOSharp [facility] Ambulatory PPGStart: 07-27-2024 End: 08-70-7410HwuddtCaroline LivingstonMcLaren Oakland - Medical OncologyComment on above:Ductal carcinoma in situ (DCIS) of right breast (Primary Dx)Start: 07-17-2024 End: 80-76-9734Zdryuegff Erna Wagner CMAProMedica Physicians Internal Medicine - Family MedicineStart: 07-13-2024 End: 14-41-1091otviiusdvbQIKTKSL J CASTILLOProMedica Newport Coast HospitalStart: 05-01-2024 End: 63-61-9133stqoxhsyfdAONKYSX J CASTILLOProMedica Greene HospitalStart: 01-14-2018 End: 85-15-9746GwnkdpmgcvYeksymd T. PowersFacility:[facility]CSONtart: 11-23-2017 End: 29-82-8935Lhjddukjzq and management of inpatientFrancisco Jyvroselanette Noonan Facility:[facility]art: 10-27-2017 End: 04-94-5678YhxydxzjofIGVDWDM CASTILLOFacility:[facility] Procedures DateProcedureProcedure DetailPerforming ClinicianStart: 51-79-9573Ymoxn depression screening assessmentJopipo Libans DO Work Phone: Start: 22-39-7884BhnhbuofqieDmqq Yuhas DO Work Phone: Start: 47-62-5951Busry depression screening assessment Daksha Red DO Work Phone: Start: 96-43-2026Mwwvmp-up visitFollow-upJOPIPO Miller RED Start: 06-21-1482Swixd depression screening assessmentJopipo Louies DO Work Phone: Start: 07-64-6171Pxklwcxhji examination knee 3 views Shaylee Noonan DO Work Phone: Start: 57-00-3409Aklrl depression screening assessment Danilo Cedillo DIE GR[employer]IMBING INSTRUCTOR Work Phone: Start: 40-85-9731UAQY INFLUENZA A/INFLUENZA B/SARS-COV-2 Evan Cedillo DIE GR[employer]ER-[employer]IMBING INSTRUCTOR Work Phone: Start: 26-12-0879Lvnoo depression screening assessment Danilo Cedillo DIE GR[employer]IMBING INSTRUCTOR Work Phone: Start: 83-65-5060Pkhrz depression screening assessment Hemanth Maxwell DIE GR[employer]IMBING INSTRUCTOR Work Phone: Start: 47-74-1232YqntfuocjbcCrikfsyc Johnson CMAStart: 33-41-7096Ugmoe depression screening assessmentFantasma Wagner CMAStart: 31-62-9925LufotekzbdtWrvlrbsd Johnson CMAHistory of operative procedure on knee Status post bilateral knee replacementsMichael T Noonan DO Work Phone: Plan of Treatment DateCare ActivityDetailAuthorStart: 46-48-4546Bdvydcuag for malignant neoplasm of colonColonoscopySumma Health [facility] SystemStart: 05-09-2026 End: 68-12-5974Kddqrgz encounter zqeuzbawl92/15/2026 1:00 PM EDT Office Visit [facility] [address] [place] [address] [phone] Physicians Internal Medicine - Family MedicineStart: 17-71-0754Lnbhc BMI ScreeningAdult BMI ScreeningSumma Health Wadsworth - [facility] SystemStart: 90-02-8350Uwolupouia ScreeningDepression ScreeningSumma Health Wadsworth - [facility] SystemStart: 07-71-9314Hank Risk ScreeningFall Risk ScreeningSumma Health Wadsworth - [facility] SystemStart: 10-14-2026Medicare Annual Wellness VisitMedicare Annual Wellness VisitSumma Health Wadsworth - [facility] SystemStart: 38-81-0808Wgcos BMI ScreeningAdult BMI ScreeningSumma Health Wadsworth - [facility] SystemStart: 98-91-4087Kyxcxydhv for malignant neoplasm of breastMammogramSumma Health Wadsworth - [facility] SystemStart: 31-23-9565Ivwyzxl ScreeningTobacco ScreeningSumma Health Wadsworth - [facility] SystemStart: 54-36-0681Ljutqrdspp ScreeningDepression ScreeningProThe Jewish Hospital SystemStart: 15-75-5443Mwnc Risk ScreeningFall Risk ScreeningSumma Health [facility]ad[facility] - [facility] SystemStart: 08-00-5595Omqec BMI ScreeningAdult BMI ScreeningSumma Health Wadsworth - [facility] SystemStart: 09-35-4646Wbwgsqndut ScreeningDepression ScreeningSumma Health [facility]ad[facility] - [facility] SystemStart: 05-59-8582Zbwx Risk ScreeningFall Risk ScreeningSumma Health [facility]ad[facility] - [facility] SystemStart: 85-32-3562Rwlpl BMI Follow Up PlanAdult BMI Follow Up PlanSumma Health Wadsworth - [facility] SystemStart: 10-30-2025 Adult BMI ScreeningAdult BMI ScreeningSumma Health Wadsworth - [facility] SystemStart: 10-30-2025 Depression ScreeningDepression ScreeningSumma Health [facility]ad[facility] - [facility] SystemStart: 10-30-2025 Fall Risk ScreeningFall Risk ScreeningSumma Health [facility] SystemStart: 10-30-2025 Tobacco ScreeningTobacco ScreeningSumma Health [facility]ad[facility] - [facility] SystemStart: 53-54-3281Eeuwg BMI Follow Up PlanAdult BMI Follow Up PlanSumma Health Wadsworth - [facility] SystemStart: 96-56-0654Fnhkm BMI ScreeningAdult BMI ScreeningSumma Health Wadsworth - [facility] SystemStart: 98-07-5184Quqykczoqx ScreeningDepression ScreeningSumma Health [facility]ad[facility] - [facility] SystemStart: 02-37-3354Nflh Risk ScreeningFall Risk ScreeningSumma Health [facility] - [facility] SystemStart: 32-11-8098Yeqldic ScreeningTobacco ScreeningSumma Health [facility]ad[facility] - [facility] SystemStart: 80-38-9728Bxxut BMI ScreeningAdult BMI ScreeningSumma Health [facility]adsworth - [facility] SystemStart: 34-23-6483Mzydxhlsgm ScreeningDepression ScreeningSumma Health [facility] - [facility] SystemStart: 61-72-0766Qoyw Risk ScreeningFall Risk ScreeningSumma Health [facility]ad[facility] - [facility] SystemStart: 90-96-3222Xuvxykc ScreeningTobacco ScreeningNovant Health Presbyterian Medical Centertart: 05-23-2025 End: 77-45-2770Nfjgiyx encounter eeiaobipe28/29/2025 1:00 PM EDT Office Visit [facility] [address] [facility] [address] [place] [address] Edy Andrews MD [address] [facility] [address] [place] [address] ArrivedNOMS [place] OtolaryngologyComment on above:ArrivedStart: 05-08-2025 End: 57-16-8186Riclfrz encounter zwpeuhnig40/14/2025 1:00 PM EDT Office Visit [facility] [address] [place] [address] FgnQksuei Physicians Internal Medicine - Family MedicineStart: 05-07-2025 End: 95-87-8424Lcocbhl encounter yskgblvtz34/13/2025 4:30 PM EDT Office Visit [facility] [address] [place] [id number] Daksha Moon DO [address] [facility] [facility] MedicineStart: 05-07-2025 End: 02-35-9160Dxoqhfb encounter procedureProMedica Physicians [facility] Institutetart: 74-13-1877Ajbgbssur for malignant neoplasm of breast MammogramSumma Health [facility] - [facility] SystemStart: 80-05-0804Ehrxp BMI Follow Up PlanAdult BMI Follow Up PlanNovant Health Presbyterian Medical Centertart: 44-06-0762Pjedw BMI Screening Adult BMI ScreeningProThe Jewish Hospital SystemStart: 72-97-1608Jcqvwjjehl Screening Depression ScreeningSumma Health [facility]ad[facility] - [facility] SystemStart: 48-96-9793Egdp Risk Screening Fall Risk ScreeningSumma Health Wad[facility] - Rittman Medical Center SystemStart: 10-07-2025Medicare Annual Wellness VisitMedicare Annual Wellness VisitNovant Health Presbyterian Medical Centertart: 89-51-7544Lueifdd ScreeningTobacco ScreeningNovant Health Presbyterian Medical Centertart: 04-17-2025 End: 34-39-0711Qtkljyj encounter iqxwdoptt18/23/2025 9:40 AM EDT Office Visit [facility] [address] [facility] [address] [place] [address] Edy Andrews MD [address] [facility] [address] [place] [address] ArrivedNOMS [place] OtolaryngologyComment on above:ArrivedStart: 04-09-2025 End: 33-32-2732Attgqvb encounter tdpyyujya91/15/2025 8:00 AM EDT Office Visit [facility] [address] [place] [address] Danilo Cedillo, DIE [employer] [address] [place] [address] [facility] MedicineStart: 04-04-2025 End: 46-40-5098Mqulrou encounter /10/2025 2:30 PM EDT Office Visit [facility] [address] [place] [address] Daksha Moon, DO [address] [facility] [id number] [facility] MedicineStart: 04-04-2025 End: 78-35-4285AA Sinuses WO contrastCT sinuses without contrast Imaging Routine Chronic pansinusitis Expected: 04/04/2025, Expires: 04/04/2026[facility] Work Phone: Comment on above:Expected: 04/04/2025, Expires: 04/04/2026Start: 54-02-9009Ynirdsooe vaccinationSumma Health Wadsworth - [facility]ittman Medical Center SystemStart: 10-30-2024 End: 31-75-7485AS Cervical spine ViewsX-ray spine cervical 3 views or less Imaging Routine Neck pain Expected: 10/30/2024, Expires: 10/30/2025[facility] Work Phone: Comment on above:Expected: 10/30/2024, Expires: 10/30/2025Start: 10-30-2024 End: 72-95-3813Fzbusvj encounter qshwsciid62/07/2025 8:20 AM EDT Office Visit [facility] [address] [place] [address] Danilo Cedillo, D[employer] [address] [place] [address] [facility] MedicineStart: 09-01-2024 End: 22-86-5873Zbxzovewptkb consultation with oqopglm7309/01/2024 8:45 AM EST Telemedicine Anjali L Mynor [facility] - [facility] Oncology [address] [place] [address] Samantha Zamarripa MD [address] [facility] [address] [place] [address] Anjali L Mynor [facility] - Medical OncologyStart: 27-03-0176DWGAJ-19 Vaccine (3 - Pfizer risk series)COVID-19 Vaccine (3 - Pfizer risk series)[facility] HospitalABSMaterials Findersfee SystemStart: 56-44-4694RIkJ,Tdap and Td Vaccines (1 - Tdap)DTaP,Tdap and Td Vaccines (1 - Tdap)[facility] HospitalInteractive Networkstart: 50-04-3579Giinvlqxl for malignant neoplasm of colonGolden Valley Memorial Hospital End: 40-56-5364DBR W Auto Differential panel - BloodCBC auto differential Lab Routine Ductal carcinoma in situ (DCIS) of right breast 1 Occurrences starting 07/27/2024 until 07/27/2025[facility] Work Phone: Comment on above:1 Occurrences starting 07/27/2024 until 07/27/2025 End: 64-92-7408Zcgatdmozklux metabolic 2000 panel - Serum or PlasmaComprehensive metabolic panel Lab Routine Ductal carcinoma in situ (DCIS) of right breast 1 Occurrences starting 07/27/2024 until 07/27/2025[employer] SystemComment on above:1 Occurrences starting 07/27/2024 until 07/27/2025 End: 14-08-3127Leacjdgdwdkls metabolic 2000 panel - Serum or PlasmaComprehensive metabolic panel Lab Routine Mixed hyperlipidemia 1 Occurrences starting 04/04/2025 until 04/04/2026[employer] SystemComment on above:1 Occurrences starting 04/04/2025 until 04/04/2026 End: 53-28-7534Vczxpwcfgr countEosinophil count Lab Routine Moderate persistent allergic asthma 1 Occurrences starting 04/04/2025 until 04/04/2026[employer] SystemComment on above:1 Occurrences starting 04/04/2025 until 04/04/2026 End: 91-23-0479Kbjqrnoosg A1c/Hemoglobin.total in BloodHemoglobin A1c Lab Routine IFG (impaired fasting glucose) 1 Occurrences starting 04/04/2025 until 04/04/2026[facility] CenterComment on above:1 Occurrences starting 04/04/2025 until 04/04/2026 End: 98-69-2499Dgydy 1996 panel - Serum or PlasmaLipid profile Lab Routine Mixed hyperlipidemia 1 Occurrences starting 04/04/2025 until 04/04/2026[facility] SystemComment on above:1 Occurrences starting 04/04/2025 until 04/04/2026 End: 13-32-8595FRY with ReflexTSH with Reflex Lab Routine Hypothyroidism, unspecified type 1 Occurrences starting 04/04/2025 until 04/04/2026[facility] CenterComment on above:1 Occurrences starting 04/04/2025 until 04/04/2026 Immunizations Immunization DateImmunizationNotesCare ZqrbxhixDmdzbbik01-83-9788zeytlgtqd, high dose seasonal, preservative-freeJohn Yuhas DO Work Phone: [facility] CenterOlhqgt58-39-6345dejanqzvd virus vaccine, unspecified formulationValerie Mamadou D[employer] Work Phone: [facility]12-22-2023zoster vaccine recombinantJohn Yuhas DO Work Phone: [facility] CenterDjhbky15-43-3105Xrajaywwg Vaccine, Quadrivalent, AdjuvantedLoveetta Bernard [facility]09-25-2023 zoster vaccine recombinantJohn Yuhas DO Work Phone: [facility] CenterLphyhu45-45-1479lcrgeozrfrmd polysaccharide vaccine, 23 valentLoveetta Bernard [facility] 08-24-7813onybdbzdn, injectable, quadrivalent, preservative freeLoveetta Bernard [facility]10-09-2019influenza, high dose seasonal, preservative-freeLoveetta Bernard [facility]10-08-2018influenza virus vaccine, unspecified formulationLoveetta Bernard [facility] CenterSfclpc01-80-1350bjpohiyxkhoe conjugate vaccine, 13 valentFantasma Wagner [facility]09-01-2016influenza, seasonal, injectable, preservative freeFantasma Wagner [facility] Payers DatePayer CategoryPayerPolicy [id number] (Managed Care)[employer] MEDICARE [id number] HMO [id number] [id number] [id number] 2..1.878132.3.57[id number] 2..1.364204.3.57[id number] 2..1.655436.3.57[id number] 2..1.801270.3.57[id number] 2..1.203990.3.57[id number] 2.16.840.1.656681.3.57[id number] 2.16.840.1.577112.3.57[id number] 2.16.840.1.867779.3.57[id number] 2.16.840.1.958628.3.57[id number] 2.16.840.1.346311.3.57[id number] 2.16.840.1.258411.3.57[id number] 2.16840.1.654308.3.57[id number] 2.16.840.1.878757.3.57[id number] 2.16.840.1.947031.3.57[id number] 2.16.840.1.253250.3.57[id number] 2.16.840.1.338617.3.57[id number] 2.16.840.1.139947.3.57[id number] 2.16.840.1.066293.3.57[id number] 2.16.840.1.472401.3.57[id number] 2.16.840.1.400569.3.57[id number] 2.16.840.1.094893.3.57[id number] Social History DateTypeDetailFacilityStart: 10-15-2022 End: 66-86-4995Justubb smoking status NHISNever smoked tobaccoSumma Health Wadsworth - Rittman Medical Center SystemStart: 10-15-2022 End: 43-17-0740Gmzbzzg use and exposureSmokeless tobacco non-userSumma Health Wadsworth - Rittman Medical Center SystemStart: 05-04-2024 End: 22-99-4303Xisolypef beverage intakeCurrent non-drinker of alcohol (finding) [facility] SystemStart: 05-12-2021 End: 24-10-8149Urmsrfp of Social functionSumma Health Wadsworth - Rittman Medical Center SystemStart: 05-12-2021 End: 21-73-0090Ozfywa connection and isolation panelProThe Jewish Hospital SystemDo you belong to any clubs or organizations such as pentecostalism groups, unions, fraternal or athletic groups, or school groups?YesSumma Health Wadsworth - Rittman Medical Center SystemAre you now , , , , never or living with a partner?MarriedSumma Health Wadsworth - Rittman Medical Center SystemHow often to you have a drink containing alcohol?NeverSumma Health Wadsworth - Rittman Medical Center SystemStart: 17-94-5888Pgu many standard drinks containing alcohol do you have on a typical day?Patient declinedProThe Jewish Hospital SystemHow hard is it for you to pay for the very basics like food, housing, medical care, and heatingNot very hardOhioHealth Shelby Hospital Health SystemDo you feel stress - tense, restless, nervous, or anxious, or unable to sleep at night because your mind is troubled all the time - these days [OSQ]Not at allSumma Health Wadsworth - Rittman Medical Center SystemStart: 97-61-2993Lcxpisnxf00ClyJvname Health SystemStart: 79-98-3838Ibp assigned at birthNot on fileSumma Health Wadsworth - Ritt[facility] Medical Center SystemStart: 40-69-6493FnlIpvidh (finding)[facility] Findersfee SystemStart: 02-23-2025 End: 28-21-7155Spiluprxf beverage intakeLifetime non-drinker (finding)[facility] HealthcareStart: 74-93-8933Rfyvcka Commentcaffeine intake: 1-2 cups per day of teaNOMS HealthcareStart: 34-39-3762Ser assigned at [facility] Start: 74-30-5148Ucaaxh identityIdentifies as female gender (finding)[facility] the electric, gas, oil, or water company threatened to shut off services in your home in past 12[facility] Medical Equipment Procedure CodeEquipment CodeEquipment Original TextEquipment IdentifierDates Hyd[employer] Us Clip T1 - [id number] - [id number]: 06-27-2020 Comment on above:Description: RIght breast 1:00 Clinical Notes 07-17-2024 to 05-23-2025 Note Date & YqwiDmsrEmiqscga72-97-4057 History of Present illness Narrative* Edy Andrews MD - 05/23/2025 1:00 PM EDT Subjective Patient ID: Svetlana Davis is a 74 y.o. female who presents for Sinusitis (Follow up CT [facility] 05/14/25) Pt states her sx are improved, but persist. Asthma improved. Review of Systems All other systems reviewed and are negative. Family History[1] Active Ambulatory Problems Diagnosis Date Noted Arthritis 09/29/2017 Artificial knee joint present 04/16/2023 Asymmetrical sensorineural hearing loss 04/16/2023 Sensorineural hearing loss (SNHL), bilateral 04/16/2023 Bilateral tinnitus 04/16/2023 Chronic allergic rhinitis 07/25/2018 Chronic otitis externa 04/16/2023 Chronic reactive otitis externa of both ears 04/16/2023 Degeneration of lumbar intervertebral disc 04/16/2023 Diverticulosis of sigmoid colon 01/21/2018 Ductal carcinoma in situ (DCIS) of right breast 08/09/2020 Chronic right shoulder pain 09/29/2017 Fibromyalgia 05/03/2019 Lumbago with sciatica, left side 04/16/2023 Lumbago with sciatica, right side 04/16/2023 Mild intermittent asthma without complication (HCC) 07/13/2018 Moderate episode of recurrent major depressive disorder ([facility]) 11/03/2017 Neuropathic pain 09/29/2017 Obesity, morbid ([facility]) 11/02/2022 Primary osteoarthritis involving multiple joints 01/31/2018 Snoring 10/20/2018 Ear discomfort, left 04/19/2023 Acute maxillary sinusitis 05/23/2025 Asthma exacerbation (HCC) 05/23/2025 Asthma ([facility]) 05/23/2025 Depression 05/23/2025 History of breast cancer 05/23/2025 Seasonal allergies 05/23/2025 Resolved Ambulatory Problems Diagnosis Date Noted No Resolved Ambulatory Problems Past Medical History: Diagnosis Date Anemia Ankle sprain Breast cancer ([facility]) Fracture, foot Hammer toe Migraines Obesity 1951 Osteoporosis Personal history of irradiation 2020 Rotator cuff syndrome Sensorineural hearing loss (SNHL) of both ears Stomach ulcer Tinnitus ? Surgical History[2] Allergies[3] Medications Ordered Prior to Encounter[4] Objective Last Recorded Vitals Vitals: 05/23/25 1256 BP: 137/74 Pulse: 66 ENT Physical Exam Constitutional Appearance: patient appears well-developed, well-nourished and well-groomed, Communication/Voice: communication appropriate for developmental age; vocal quality normal; Nose Nose comments: DNS to the RT Respiratory Inspection: breathing unlabored; normal breathing rate; Auscultation: breath sounds are clear; Cardiovascular Inspection: extremities are warm and well perfused; no peripheral edema present; Auscultation: regular rate and rhythm; Assessment/Plan Diagnoses and all orders for this visit: Chronic maxillary sinusitis DNS (deviated nasal septum) Pt has chronic (>12 weeks) sinusitis and nasal obstruction due to DNS and inf turb hyp that has failed aggressive medical management with abx, nasal steroids, prednisone, antihistamines and salineirrigations. Proceed with anthony MMA and septoplasty. Risks, including epistaxis, septal perforation, anosmia, orbit injury with diploia or blindness, CSF leak, and persistent sx d/w pt and who expressed understanding. [1] Family History Problem Relation Name Age of Onset Stroke Mother Jo I Dye Heart failure Mother Jo I Dye Broken bones Mother Jo I Dye Cancer Mother Jo I Dye Diabetes Mother Jo I Dye Thyroid disease Mother Jo I Dye Stroke Father Edgard L Dye Heart failure Father Edgard L Dye Diabetes Father Edgard L Dye Cancer Father Edgard L Dye Broken bones Father Edgard L Dye Clotting disorder Father Edgard L Dye Osteoporosis Father Edgard L Dye Asthma Father Edgard L Dye Stroke Other Spouse Cancer Father's Sister Anjali Blackmon Seizures Mother's Sister Clayton Bowers [2] Past Surgical History: Procedure Laterality Date BI US GUIDED BREAST LOCALIZATION AND BIOPSY LEFT Left 06/27/2020 BI US GUIDED BREAST LOCALIZATION AND BIOPSY LEFT 06/27/2020 BI US GUIDED BREAST LOCALIZATION RIGHT Right 07/16/2020 BI US GUIDED BREAST LOCALIZATION RIGHT 07/16/2020 BREAST LUMPECTOMY Right 07/16/2020 SECTION, CLASSIC x 2 CHOLECYSTECTOMY COLONOSCOPY 2016 HERNIA REPAIR HYSTERECTOMY SINUS SURGERY 1969? TOTAL KNEE ARTHROPLASTY Right 04/14/2013 [facility] TOTAL KNEE ARTHROPLASTY Left 11/23/2017 [facility] US GUIDED FINE PERCUTANEOUS ASPIRATION 02/03/2021 US GUIDED FINE PERCUTANEOUS ASPIRATION 02/03/2021 [3] Allergies Allergen Reactions Bee Venom Shortness of breath Cat Dander Shortness of breath Other Reaction(s): Difficulty Breathing Eyes water, runny nose Savannah Oil Swelling Flavoring Agent (Non-Screening) Other Reaction(s): Unknown Oxytetracycline Other Reaction(s): Unknown Unsure, as a child Shellfish Protein-Containing Drug Products Other Reaction(s): Unknown Shrimp Extract Nausea Only Other Reaction(s): Syncope Sulfa Antibiotics Hives Other Reaction(s): Unknown As a child Cimetidine Hives, Itching and Rash Other Reaction(s): Unknown Ibuprofen Hives and Rash Other Reaction(s): Unknown [4] Current Outpatient Medications on File Prior to Visit Medication Sig Dispense Refill albuterol HFA 90 mcg/act inhaler azelastine (Astelin) 0.1 % nasal spray Administer 2 sprays into affected nostril(s) in the morning and 2 sprays in the evening. Bempedoic Acid-Ezetimibe (Nexlizet) 180-10 MG tablet Take 1 tablet by mouth in the morning. cetirizine (ZyrTEC) 10 MG tablet Take 1 tablet (10 mg) by mouth Daily as needed for allergies 30 tablet 11 doxycycline (Vibramycin) 100 MG capsule Take 100 mg by mouth in the morning and 100 mg before bedtime. Take with at least 8 ounces (large glass) of water, do not lie down for 30 minutes after. fluticasone (Flonase) 50 MCG/ACT nasal spray Administer 2 sprays into each nostril Daily Shake gently. Before first use, prime pump. After use, clean tip and replace cap. (Patient taking differently:Administer 2 sprays into each nostril Daily Shake gently. Before first use, prime pump. After use, clean tip and replace cap.) 48 g 3 Bfoissolapb-Heirkufza-Sajmay (Trelegy Ellipta) 100-62.5-25 MCG/ACT aerosol powder Inhale 1 puff in the morning. montelukast (Singulair) 10 MG tablet Take 10 mg by mouth at bedtime sertraline (Zoloft) 100 MG tablet Take 100 mg by mouth in the morning. [DISCONTINUED] Calcium Carbonate-Vitamin D (Oyster Shell Calcium/D) 500-5 MG-MCG tablet Take 1 tablet by mouth in the morning and 1 tablet in the evening. Take with meals. [DISCONTINUED] rosuvastatin (Crestor) 5 MG tablet Take 5 mg by mouth in the morning. [DISCONTINUED] amoxicillin-clavulanate (Augmentin) 875-125 MG tablet Take 1 tablet (875 mg) by mouth in the morning and 1 tablet (875 mg) before bedtime. 60 tablet 0 No current facility-administered medications on file prior to visit. documented in this encounterGolden Valley Memorial HospitalEfhxssmbjt84-76-2594 History of Present illness Narrative* Daksha Moon DO - 05/08/2025 1:00 PM EDT Subjective SUBJECTIVE: Patient ID: Svetlana Davis is a 74 y.o. female who presents for a Medicare Annual Wellness exam. HPI The following portions of the patient's history were reviewed and updated as appropriate: allergies, current medications, past family history, past medical history, past social history, past surgicalhistory and problem list. AWV FLOWSHEET : Lifestyle Assessment Do you smoke or use smokeless tobacco?: (Patient-Rptd) No If you smoke or use smokeless tobacco, are you ready to quit?: (Patient-Rptd) NA Are you exposed to secondhand smoke?: (Patient-Rptd) No On average, how many drinks of alcohol do you consume in a week?: (Patient-Rptd) None Do you exercise for 30 or more minutes on average at least 3 days a week?: (Patient-Rptd) Sometimes Do you have any tooth, denture, or oral problems?: (Patient-Rptd) No Do you snore or has anyone told you that you snore?: (!) (Patient-Rptd) Yes Do you try to eat a balanced diet?: (Patient-Rptd) Yes Do you experience leakage of urine, also known as urinary incontinence?: (Patient-Rptd) Never Do you have difficulty bathing?: No Do you have difficulty dressing?: (Patient-Rptd) No Do you have difficulty grooming?: (Patient-Rptd) No Do you have difficulty eating?: (Patient-Rptd) No Do you have difficulty getting out of a chair?: (Patient-Rptd) No Do you have difficulty walking?: (Patient-Rptd) No Do you have difficulty using the toilet?: (Patient-Rptd) No Do you have difficulty doing laundry?: (Patient-Rptd) No Do you have difficulty with housekeeping?: (Patient-Rptd) No Do you have difficulty preparing a meal?: (Patient-Rptd) No Do you have difficulty shopping?: (Patient-Rptd) No Do you have difficulty using transportation?: (Patient-Rptd) No Do you have difficulty paying bills?: (Patient-Rptd) No Do you have difficulty managing finances?: (Patient-Rptd) No Fall Risk Fall Risk Assessment Completed?: Yes Have you fallen in the past year?: (!) (Patient-Rptd) Yes How many times?: (Patient-Rptd) 1 Were you injured?: (Patient-Rptd) No Are you worried about falling?: (!) Yes Do you feel unsteady when standing or walking?: (!) Yes Risk Stratification: Moderate Risk Depression Screening Little interest or pleasure in doing things: Not at all Feeling down, depressed, or hopeless: Not at all Trouble falling or staying asleep, or sleeping too much: (!) Several days Feeling tired or having little energy: (!) Several days Poor appetite or overeating: Not at all Feeling bad about yourself - or that you are a failure or have let yourself or your family down: Not at all Trouble concentrating on things, such as reading the newspaper or watching television: Not at all Moving or speaking so slowly that other people could have noticed. Or the opposite - being so fidgety or restless that you have been moving around a lot more than usual: Not at all Thoughts that you would be better off , or of hurting yourself in some way: Not at all PEG Scale What number best describes your pain on average in the past week?: (Patient- Rptd) 4 What number best describes how, during the past week, pain has interfered with your enjoyment of life?: (Patient-Rptd) 3 What number best describes how, during the past week, pain has interfered with your general activity?: (Patient-Rptd) 3 PEG Pain Total Score: (Patient-Rptd) 3.33 Safety Assessment Do you have throw rugs on the floor?: (Patient-Rptd) No Do you feel safe at your home?: (Patient-Rptd) Yes Do you feel unsteady when walking?: (Patient-Rptd) No Are you having difficulty with driving?: (Patient-Rptd) No Do you have trouble seeing?: (Patient-Rptd) No Do you use a bath bar/seat?: (Patient-Rptd) No Do you use a raised toilet seat?: (Patient-Rptd) No Do you use a cane?: (Patient-Rptd) No Do you use a walker?: (Patient-Rptd) No Do you use a wheelchair?: (Patient-Rptd) No Hearing Assessment Do you strain or struggle to hear/understand conversations?: (sinus infection) Do you have trouble hearing the television or radio when others do not?: (!) (Patient-Rptd) Yes Does your family ever voice concerns about your hearing?: (!) (Patient-Rptd) Yes Do you wear hearing aid/s?: (!) (Patient-Rptd) Yes Personal Health During the past 4 weeks, how would you rate your overall health?: (!) (Patient- Rptd) Fair Do you understand how to take all of your medications?: (Patient-Rptd) Yes How confident are you that you can control and manage most of your health problems?: (!) (Patient-Rptd) Somewhat confident In the past 12 months, how many times have you been hospitalized?: (Patient- Rptd) None End of Life Planning Do you have a living will?: (Patient-Rptd) Yes Do you have a durable power of trust and estates attorney?: (Patient-Rptd) Yes Cognitive Screening Do you have trouble remembering or recalling facts or events?: (Patient-Rptd) No Do family members or caregivers report that you have difficulty remembering things?: (Patient-Rptd)No 6-ClT: Normal 10/20 REVIEW OF SYSTEMS: Review of Systems Objective PHYSICAL EXAMINATION: Vitals: 05/08/25 1238 BP: 128/88 Weight: 110.7 kg (244 lb) Height: 162.6 cm (5' 4 ) Physical Exam Assessment/Plan ASSESSMENT/PLAN Svetlana was seen today for maw. Diagnoses and all orders for this visit: Encounter for subsequent annual wellness visit (AWV) in Medicare patient Return in about 1 year (around 05/08/2026). documented in this encounterTogus [facility] History of Present illness Narrative* Daksha Moon DO - 05/07/2025 4:30 PM EDT IM PROGRESS NOTE Patient - Svetlana Davis Age - 74 y.o. - 1950 ASSESSMENT & PLAN 1. Chronic sinusitis, unspecified location (Primary) -symptoms are improved although not fully resolved -continue treatment as initiated by ENT including Augmentin 875 mg b.i.d. along with Neti flush/lavage -is to have a repeat CT of the sinuses and follow-up with ENT for possible surgery in 2 weeks 2. Moderate persistent allergic asthma -peak flow was rechecked today and improved at 260 L/minute, but still low -increase Trelegy to 200 once daily -patient was advised she can use the albuterol inhaler up to 4 times daily if needed, and may want to consider pretreating herself for activities that tend to cause symptoms - sdcdadipuzv-yemwvuion-hjjhoooo (TRELEGY ELLIPTA) 200-62.5-25 mcg blister with device; Inhale 1 puff in the morning. Dispense: 14 each; Refill: 0 3. Mixed hyperlipidemia -patient on multiple statins in the past including atorvastatin and most recently rosuvastatin, which she was unable to tolerate due to myalgias -I reviewed the results of her recent lipid testing which showed an LDL of 130 mg/dL - The 10-year ASCVD risk score (Roseline IGLESIAS, et al., 2019) is: 12.2% Values used to calculate the score: Age: 74 years Sex: Female Is Non- : No Diabetic: No Tobacco smoker: No Systolic Blood Pressure: 128 mmHg Is BP treated: No HDL Cholesterol: 42 mg/dL Total Cholesterol: 210 mg/dL -will give a trial of bempedoic acid times 14 days. If she tolerates she will let me know and we will fill a longer prescription - bempedoic acid-ezetimibe (NEXLIZET) 180-10 mg tablet; Take 1 tablet by mouth in the morning. Dispense: 14 tablet; Refill: 0 4. Thrush, oral -patient showing S/S of thrush -not surprising given her prolonged antibiotics and steroid usage -prescription for nystatin swish and swallow - nystatin (MYCOSTATIN) 100,000 unit/mL suspension; Take 5 mL (500,000 Units total) by mouth in themorning and 5 mL (500,000 Units total) at noon and 5 mL (500,000 Units total) in the evening and 5 mL (500,000 Units total) before bedtime. Do all this for 7 days. Swish in mouth then swallow. Dispense: 60 mL; Refill: 1 Subjective 74-year-old female presents for recheck on her breathing and sinuses. At last visit was noted to have a chronic sinusitis which was not responding to multiple rounds of antibiotics and steroids. She was placed on doxycycline (due to previously noted allergies, and advised start using Neti flush on a regular basis. She was sent for a CT scan which showed chronic sinus congestion and obstruction, and was referred to ENT. -ENT change the antibiotic to Augmentin (which he has tolerated and indicates that she may not havepenicillin allergy) and continued the nasal flushes. -her symptoms are improved but not resolved. She is able to breathe out of her right naris a bit better, in his able to use the Neti flush. -her breathing is also slightly improved, although she still gets winded after walking for 20 minutes. She is no longer using the nebulizer. She has been using Trelegy 100 once daily. -she does describe burning tingling sensation in her mouth, and it feels very sore, for the past 1-2 weeks. -no longer coughing or having productive sputum. A review of systems was negative except for the following: General: fatigue and is sleeping better Psychiatric: Frustrated by slow improvement ENT: nasal congestion, sinus pain, and intermittent earaches bilaterally. No drainage. Is noticing a sore, burning sensation in her mouth Respiratory: Currently using Trelegy 100 daily. No longer using nebulizer. Has an albuterol inhalerbut there has not been using it. Cardiovascular: Was noted to have elevated lipid levels on recent lab, especially her LDL at 130 mg/dL. Has been on multiple statins in the past, including atorvastatin and mostly recently rosuvastatin, and was unable to tolerate them due to myalgias. Her calculated CV risk score is well above 10%.. Exam BP 128/88 (BP Site: Left Arm, BP Postition: Sitting, BP CUFF SIZE: L (13-17 inches)) Pulse 73 Temp 37.2 C (99 F) (Tympanic) Resp 18 Ht 162.6 cm (5' 4.02 ) Wt 110.9 kg (244 lb 9.6 oz) LMP (LMP Unknown) SpO2 98% BMI 41.96 kg/m Physical Exam Vitals reviewed. Constitutional: General: She is not in acute distress. Appearance: She is obese. She is not toxic-appearing. HENT: Head: Normocephalic. Right Ear: Ear canal and external ear normal. Left Ear: Ear canal and external ear normal. Ears: Comments: TMs with some pressure changes noted bilaterally, but no erythema Nose: Congestion (Partial obstruction of the right naris and partial obstruction of the left naris)present. Mouth/Throat: Mouth: Mucous membranes are dry. Pharynx: Posterior oropharyngeal erythema present. Eyes: General: No scleral icterus. Cardiovascular: Rate and Rhythm: Normal rate and regular rhythm. Heart sounds: No murmur heard. No gallop. Pulmonary: Effort: Pulmonary effort is normal. Breath sounds: No wheezing or rales. Comments: Peak flow done today shows a value of 260 L/minute (predicted 360 L/minute) Abdominal: Palpations: Abdomen is soft. Musculoskeletal: Cervical back: No tenderness. Right lower leg: No edema. Left lower leg: No edema. Comments: Some small, superficial varicose veins noted bilaterally in the ankles and feet Lymphadenopathy: Cervical: No cervical adenopathy. Skin: General: Skin is warm and dry. Coloration: Skin is not jaundiced. Findings: No bruising. Neurological: General: No focal deficit present. Mental Status: She is alert and oriented to person, place, and time. Psychiatric: Mood and Affect: Mood normal. Behavior: Behavior normal. Meds Current Outpatient Medications: albuterol (PROVENTIL HFA;VENTOLIN HFA) 90 mcg/actuation inhaler, Inhale 2 puffs every 6 (six) hoursas needed for wheezing or shortness of breath., Disp: 18 g, Rfl: 6 amoxicillin-pot clavulanate (AUGMENTIN) 875-125 mg per tablet, Take 1 tablet by mouth in the morning and 1 tablet before bedtime., Disp: , Rfl: cetirizine (ZyrTEC) 10 mg tablet, Take 1 tablet (10 mg total) by mouth in the morning., Disp: , Rfl: fluticasone propionate (FLONASE) 50 mcg/actuation nasal spray, Administer 1 spray into each nostrilin the morning., Disp: 16 g, Rfl: 6 montelukast (SINGULAIR) 10 mg tablet, Take 1 tablet (10 mg total) by mouth nightly., Disp: 90 tablet, Rfl: 3 sertraline (ZOLOFT) 100 mg tablet, Take 1 tablet (100 mg total) by mouth in the morning. (Patient taking differently: Take 0.5 tablets (50 mg total) by mouth in the morning. questions.), Disp: 90 tablet, Rfl: 1 sod bicarb-sod chlor-neti pot (NEILMED NASAFLO), Administer 1 packet into each nostril as needed., Disp: , Rfl: bempedoic acid-ezetimibe (NEXLIZET) 180-10 mg tablet, Take 1 tablet by mouth in the morning., Disp:14 tablet, Rfl: 0 nruonjmuaqp-yevicnqqv-cfldmfeo (TRELEGY ELLIPTA) 200-62.5-25 mcg blister with device, Inhale 1 puffin the morning., Disp: 14 each, Rfl: 0 nystatin (MYCOSTATIN) 100,000 unit/mL suspension, Take 5 mL (500,000 Units total) by mouth in the morning and 5 mL (500,000 Units total) at noon and 5 mL (500,000 Units total) in the evening and 5 mL(500,000 Units total) before bedtime. Do all this for 7 days. Swish in mouth then swallow., Disp: 60 mL, Rfl: 1 Lab Results Lab on 04/12/2025 Component Date Value Ref Range Status WBC 04/12/2025 6.2 4 - 11 x10E9/L Final RBC Count 04/12/2025 4.84 3.8 - 5.2 X10E12/L Final Hemoglobin 04/12/2025 14.2 11.7 - 15.5 g/dL Final Hematocrit 04/12/2025 42.4 35 - 47 % Final MCV 04/12/2025 88 80 - 100 fL Final MCH 04/12/2025 29.4 27 - 34 pg Final MCHC 04/12/2025 33.5 32 - 36 g/dL Final RDW 04/12/2025 14.2 11.5 - 15 % Final Platelet Count 04/12/2025 172 150 - 450 X10E9/L Final MPV 04/12/2025 8.8 7 - 12 fL Final Neutrophils % 04/12/2025 66.3 % Final Lymphocytes % 04/12/2025 18.2 % Final Monocytes % 04/12/2025 11.9 % Final Eosinophils % 04/12/2025 2.6 % Final Basophils % 04/12/2025 1.0 % Final Neutrophils Absolute (A) 04/12/2025 4.1 1.5 - 6.6 10*3/uL Final Lymphocytes Absolute 04/12/2025 1.1 1.0 - 3.5 10*3/uL Final Monocytes Absolute 04/12/2025 0.7 0.0 - 0.9 10*3/uL Final Eosinophils Absolute 04/12/2025 0.2 0.0 - 0.4 10*3/uL Final Basophils Absolute 04/12/2025 0.1 0.0 - 0.2 10*3/uL Final Differential Type 04/12/2025 AUTOMATED DIFFERENTIAL Final SODIUM 04/12/2025 143 134 - 146 mmol/L Final POTASSIUM 04/12/2025 4.7 3.5 - 5.0 mmol/L Final CHLORIDE 04/12/2025 103 98 - 109 mmol/L Final CARBON DIOXIDE 04/12/2025 30 22 - 32 mmol/L Final ANION GAP 04/12/2025 10 5 - 15 mmol/L Final BLOOD UREA NITROGEN 04/12/2025 15 5 - 27 mg/dL Final CREATININE 04/12/2025 1.00 0.40 - 1.00 mg/dL Final GLUCOSE 04/12/2025 112 (H) 65 - 99 mg/dL Final CALCIUM 04/12/2025 9.4 8.5 - 10.5 mg/dL Final TOTAL PROTEIN 04/12/2025 6.8 6.0 - 8.0 g/dL Final ALBUMIN 04/12/2025 3.8 3.2 - 5.3 g/dL Final ALKALINE PHOSPHATASE 04/12/2025 74 39 - 130 U/L Final AST 04/12/2025 18 <=41 U/L Final ALT 04/12/2025 15 <=31 U/L Final BILIRUBIN,TOTAL 04/12/2025 0.9 0.3 - 1.2 mg/dL Final EGFR Non-Race Dependent 04/12/2025 60 >=60 ml/min/1.73sq.m Final CHOLESTEROL 04/12/2025 210 (H) 150 - 200 mg/dL Final TRIGLYCERIDE 04/12/2025 190 (H) 27 - 150 mg/dL Final HDL CHOLESTEROL 04/12/2025 42 >39 mg/dL Final LDL (CALC) 04/12/2025 130 (H) <130 mg/dL Final CHOLESTEROL:HDL 04/12/2025 5.0 1.0 - 5.0 Final VERY LOW LIPOPROTEIN 04/12/2025 38 (H) 0 - 30 mg/dL Final HEMOGLOBIN A1C 04/12/2025 5.6 4.4 - 5.6 % Final EST. AVERAGE GLUCOSE 04/12/2025 114 mg/dL Final TSH 04/12/2025 0.73 0.49 - 4.67 uIU/mL Final Other Testing No results found. Daksha Moon DO., [facility]: [phone] documented in this encounterT[facility] History of Present illness Narrative* Edy Andrews MD - 04/17/2025 9:40 AM EDT Subjective Patient ID: Svetlana Davis is a 74 y.o. female who presents for Nose Problem (Chronic sinusitis/nasal septal deviation CT sinus [facility] 04/09/25) Pt reports over a month h/o headaches, malar pain, PND, rhinorrhea. Tx with doxy and biaxin. Pt states this has been a lifelong problem. Sinuses cleaned out when 19. 04/09 CT sinus shows mild anthony maxillary and ant ethmoid dz and a DNS to the right with a large spur. No blood thinners. Review of Systems All other systems reviewed and are negative. Family History Problem Relation Name Age of Onset Stroke Mother Jo I Dye Heart failure Mother Oj I Dye Broken bones Mother Jo I Dye Cancer Mother Jo I Dye Diabetes Mother Jo I Dye Thyroid disease Mother Jo I Dye Stroke Father Edgard L Dye Heart failure Father Edgard L Dye Diabetes Father Edgard L Dye Cancer Father Edgard L Dye Broken bones Father Edgard L Dye Clotting disorder Father Edgard L Dye Osteoporosis Father Edgard L Dye Asthma Father Edgard L Dye Stroke Other Spouse Cancer Father's Sister Anjali Blackmon Seizures Mother's Sister Clayton Bowers Active Ambulatory Problems Diagnosis Date Noted Arthritis 09/29/2017 Artificial knee joint present 04/16/2023 Asymmetrical sensorineural hearing loss 04/16/2023 Sensorineural hearing loss (SNHL), bilateral 04/16/2023 Bilateral tinnitus 04/16/2023 Chronic allergic rhinitis 07/25/2018 Chronic otitis externa 04/16/2023 Chronic reactive otitis externa of both ears 04/16/2023 Degeneration of lumbar intervertebral disc 04/16/2023 Diverticulosis of sigmoid colon 01/21/2018 Ductal carcinoma in situ (DCIS) of right breast 08/09/2020 Chronic right shoulder pain 09/29/2017 Fibromyalgia 05/03/2019 Lumbago with sciatica, left side 04/16/2023 Lumbago with sciatica, right side 04/16/2023 Mild intermittent asthma without complication ([facility]) 07/13/2018 Moderate episode of recurrent major depressive disorder ([facility]) 11/03/2017 Neuropathic pain 09/29/2017 Obesity, morbid ([facility]) 11/02/2022 Primary osteoarthritis involving multiple joints 01/31/2018 Snoring 10/20/2018 Ear discomfort, left 04/19/2023 Resolved Ambulatory Problems Diagnosis Date Noted No Resolved Ambulatory Problems Past Medical History: Diagnosis Date Anemia Ankle sprain Asthma ([facility]) 2017 Breast cancer ([facility]) Depression Fracture, foot Hammer toe Migraines Obesity 195 Osteoporosis Personal history of irradiation 2020 Rotator cuff syndrome Sensorineural hearing loss (SNHL) of both ears Stomach ulcer Tinnitus ? Past Surgical History: Procedure Laterality Date BI US GUIDED BREAST LOCALIZATION AND BIOPSY LEFT Left 06/27/2020 BI US GUIDED BREAST LOCALIZATION AND BIOPSY LEFT 06/27/2020 BI US GUIDED BREAST LOCALIZATION RIGHT Right 07/16/2020 BI US GUIDED BREAST LOCALIZATION RIGHT 07/16/2020 BREAST LUMPECTOMY Right 07/16/2020 SECTION, CLASSIC x 2 CHOLECYSTECTOMY COLONOSCOPY 2016 HERNIA REPAIR HYSTERECTOMY SINUS SURGERY 1969? TOTAL KNEE ARTHROPLASTY Right 04/14/2013 [facility] TOTAL KNEE ARTHROPLASTY Left 11/23/2017 [facility] US GUIDED FINE PERCUTANEOUS ASPIRATION 02/03/2021 US GUIDED FINE PERCUTANEOUS ASPIRATION 02/03/2021 Allergies Allergen Reactions Bee Venom Shortness of breath [place] Oil Swelling Flavoring Agent (Non-Screening) Other Reaction(s): Unknown Oxytetracycline Other Reaction(s): Unknown Unsure, as a child Shellfish-Derived Products Other Reaction(s): Unknown Shrimp Extract Nausea Only Other Reaction(s): Syncope Sulfa Antibiotics Hives Other Reaction(s): Unknown As a child Cimetidine Hives, Itching and Rash Other Reaction(s): Unknown Ibuprofen Hives and Rash Other Reaction(s): Unknown Current Outpatient Medications on File Prior to Visit Medication Sig Dispense Refill albuterol HFA 90 mcg/act inhaler azelastine (Astelin) 0.1 % nasal spray Administer 2 sprays into affected nostril(s) in the morning and 2 sprays in the evening. Calcium Carbonate-Vitamin D (Oyster Shell Calcium/D) 500-5 MG-MCG tablet Take 1 tablet by mouth in the morning and 1 tablet in the evening. Take with meals. fluticasone (Flonase) 50 MCG/ACT nasal spray Administer 1 spray into each nostril Daily Shake gently. Before first use, prime pump. After use, clean tip and replace cap. Hrmoxlhhgeq-Clktzjwso-Glhola (Trelegy Ellipta) 100-62.5-25 MCG/ACT aerosol powder Inhale 1 puff in the morning. montelukast (Singulair) 10 MG tablet Take 10 mg by mouth at bedtime sertraline (Zoloft) 100 MG tablet Take 100 mg by mouth in the morning. doxycycline (Vibramycin) 100 MG capsule Take 100 mg by mouth in the morning and 100 mg before bedtime. Take with at least 8 ounces (large glass) of water, do not lie down for 30 minutes after. (Patient not taking: Reported on 04/17/2025) rosuvastatin (Crestor) 5 MG tablet Take 5 mg by mouth in the morning. (Patient not taking: Reportedon 04/17/2025) [DISCONTINUED] ascorbic acid (Vitamin C) 100 MG tablet Take 500 mg by mouth in the morning. [DISCONTINUED] gabapentin (Neurontin) 100 MG capsule Take 100 mg by mouth See administration instructions. No current facility-administered medications on file prior to visit. Objective Last Recorded Vitals Vitals: 04/17/25 0931 BP: 151/76 Pulse: 69 ENT Physical Exam Constitutional Appearance: patient appears well-developed, well-nourished and well-groomed, Head and Face Appearance: head appears normal and face appears atraumatic; Ear Ear Canals: right ear canal normal; left ear canal normal; Tympanic Membranes: right tympanic membrane normal; left tympanic membrane normal; Nose External Nose: nares patent bilaterally; external nose normal; Internal Nose: septum normal; Oral Cavity/Oropharynx Tongue: normal; Oral mucosa: normal; Hard palate: normal; Soft palate: normal; Tonsils: normal; Neck Neck: neck normal; neck palpation normal; Thyroid: thyroid normal; Respiratory Inspection: breathing unlabored; normal breathing rate; Auscultation: breath sounds are clear; Cardiovascular Inspection: extremities are warm and well perfused; no peripheral edema present; Auscultation: regular rate and rhythm; Assessment/Plan Diagnoses and all orders for this visit: Chronic maxillary sinusitis Chronic ethmoidal sinusitis DNS (deviated nasal septum) Pt has sx c/w chronic (>12 weeks) sinusitis. I will tx with a one mo aggressive sinus regimen, including 4 weeks abx, nasal steroids, prednisone, antihistamines, and BID saline irrigations. If sinus sx persist, and pt has followed regimen, in one month I will obtain an IG CT sinus to evaluate for surgical pathology and plan surgical tx. documented in this encounterGolden Valley Memorial [id number] History of Present illness Narrative* Daksha Moon, DO - 04/04/2025 2:30 PM EDT IM PROGRESS NOTE Patient - Svetlana Davis Age - 74 y.o. - 1950 ASSESSMENT & PLAN 1. Chronic pansinusitis (Primary) -patient with obstructed nasal passages, headache and fullness for over a month. -has been on antibiotics, and is using Flonase and Neti flush without improvement -will switch from Flonase to Astelin to try and open anterior nares and continue using Neti flush as able -start doxycycline 100 mg b.i.d. -CT of the sinuses -may need referral to ENT - azelastine (ASTELIN) 137 mcg (0.1 %) nasal spray; Administer 2 sprays into each nostril in the morning and 2 sprays before bedtime. Use in each nostril as directed. Dispense: 30 mL; Refill: 2 - CT sinuses without contrast; Future - doxycycline (VIBRAMYCIN) 100 mg capsule; Take 1 capsule (100 mg total) by mouth in the morning and 1 capsule (100 mg total) before bedtime. Do all this for 7 days. Dispense: 14 capsule; Refill: 0 2. Moderate persistent allergic asthma -I reviewed the results of her most recent spirometry. No bronchodilator testing was performed, butdoes show a decreased FVC, and peak flow testing today shows markedly decreased air flow at 130 L/minute -restart Trelegy inhaler 1 puff daily. Samples given. -may need repeat prednisone, but patient would prefer to try without due to side effects -needs repeat PFT with bronchodilator testing - mhfaahjwknr-ljszsnkyq-xgotmfkr (TRELEGY ELLIPTA) 100-62.5-25 mcg blister with device; Inhale 1 puff in the morning. Dispense: 42 each; Refill: 0 3. Mixed hyperlipidemia -previously on rosuvastatin but no longer taking -CV 10 year risk is elevated -repeat lipid panel 4. Hypothyroidism, unspecified type -overall feeling fatigued and tired -repeat TSH Subjective 74-year-old female presents for evaluation of recurrent, not improving sinusitis. Has had problems with sinusitis intermittently for years, attributed to chronic allergies. -this most recent episode started about 4-5 weeks ago. Noticed increase congestion and drainage, and so started using her Flonase nasal spray, Neti flush, without improvement. Progressed to having cough and congestion in her chest, and she started using her albuterol nebulizer 4 times daily. Had low- grade fever and just overall felt poorly. Still having yellow to green tinge sputum production when coughing. -went to urgent care, and was prescribed 5 days of prednisone along with Augmentin x7 days. In spite of this, her symptoms have not resolved. -is still using the albuterol nebulizer fairly routinely. -patient previously diagnosed with asthma and has been prescribed Trelegy, but normally could not afford it and has been relying on samples. Has not been using the Trelegy for the past 7-8 months. -in addition, the patient ran out of a number of her medications including gabapentin, rosuvastatinand stopped taking these medications. -she did go off of her montelukast temporarily, but did started up when her sinus congestion worsened. In addition, had self adjusted her sertraline, and has now taking 50 mg daily and feels this is keeping her anxiety and depression controlled. A review of systems was negative except for the following: Psychiatric: depression ENT: headaches, nasal congestion, sinus pain, and sore throat Allergies: nasal congestion, postnasal drip, and environmental allergies along with numerous antibiotic allergies as a child Respiratory: cough, shortness of breath, sputum changes, and wheezing. Exam BP 122/62 (BP Site: Left Arm, BP Postition: Sitting, BP CUFF SIZE: L (13-17 inches)) Pulse 57 Temp 36.4 C (97.6 F) (Oral) Resp 20 Ht 162.6 cm (5' 4.02 ) Wt 107.7 kg (237 lb 6.4 oz) LMP (LMP Unknown) SpO2 99% BMI 40.73 kg/m Physical Exam Vitals reviewed. Constitutional: General: She is not in acute distress. Appearance: She is obese. She is not toxic-appearing. HENT: Head: Normocephalic. Right Ear: Tympanic membrane, ear canal and external ear normal. Left Ear: Tympanic membrane, ear canal and external ear normal. Nose: Congestion (With complete obstruction of the right naris, and near complete obstruction of the left naris) present. No rhinorrhea. Mouth/Throat: Mouth: Mucous membranes are moist. Comments: Postnasal drainage in the posterior pharynx Eyes: General: No scleral icterus. Cardiovascular: Rate and Rhythm: Normal rate and regular rhythm. Heart sounds: No murmur heard. No gallop. Pulmonary: Effort: Pulmonary effort is normal. Breath sounds: Wheezing (End expiratory wheezing bilateral bases) present. No rales. Comments: Peak flow done today shows a value of 130 L/minute (predicted 360 L/minute) Abdominal: Palpations: Abdomen is soft. Musculoskeletal: Cervical back: No tenderness. Right lower leg: No edema. Left lower leg: No edema. Comments: Some small, superficial varicose veins noted bilaterally in the ankles and feet Lymphadenopathy: Cervical: No cervical adenopathy. Skin: General: Skin is warm and dry. Coloration: Skin is not jaundiced. Findings: No bruising. Neurological: General: No focal deficit present. Mental Status: She is alert and oriented to person, place, and time. Psychiatric: Mood and Affect: Mood normal. Behavior: Behavior normal. Meds Current Outpatient Medications: albuterol (PROVENTIL HFA;VENTOLIN HFA) 90 mcg/actuation inhaler, Inhale 2 puffs every 6 (six) hoursas needed for wheezing or shortness of breath., Disp: 18 g, Rfl: 6 albuterol (PROVENTIL,VENTOLIN) 2.5 mg /3 mL (0.083 %) nebulizer solution, Inhale 3 mL (2.5 mg total) by nebulization every 4 (four) hours as needed for wheezing or shortness of breath., Disp: 150 mL,Rfl: 2 fluticasone propionate (FLONASE) 50 mcg/actuation nasal spray, Administer 1 spray into each nostrilin the morning., Disp: 16 g, Rfl: 6 montelukast (SINGULAIR) 10 mg tablet, Take 1 tablet (10 mg total) by mouth nightly., Disp: 90 tablet, Rfl: 3 sertraline (ZOLOFT) 100 mg tablet, Take 1 tablet (100 mg total) by mouth in the morning. (Patient taking differently: Take 0.5 tablets (50 mg total) by mouth in the morning. questions.), Disp: 90 tablet, Rfl: 1 azelastine (ASTELIN) 137 mcg (0.1 %) nasal spray, Administer 2 sprays into each nostril in the morning and 2 sprays before bedtime. Use in each nostril as directed., Disp: 30 mL, Rfl: 2 doxycycline (VIBRAMYCIN) 100 mg capsule, Take 1 capsule (100 mg total) by mouth in the morning and 1 capsule (100 mg total) before bedtime. Do all this for 7 days., Disp: 14 capsule, Rfl: 0 dotulebjfxv-zohsupdou-wzfrxxxn (TRELEGY ELLIPTA) 100-62.5-25 mcg blister with device, Inhale 1 puffin the morning., Disp: 42 each, Rfl: 0 rosuvastatin (CRESTOR) 5 mg tablet, Take 1 tablet (5 mg total) by mouth in the morning. (Patient not taking: Reported on 04/04/2025), Disp: 90 tablet, Rfl: 1 Lab Results No visits with results within 1 Month(s) from this visit. Latest known visit with results is: Office Visit on 09/12/2024 Component Date Value Ref Range Status External Poct Influenza A Antigen 09/12/2024 Negative Final External Poct Influenza B Antigen 09/12/2024 Negative Final External POCT SARS COV 2 Veritor 09/12/2024 Presumptive Negative Final Other Testing No results found. Daksha Moon DO., [facility]: [phone] documented in this encounterT[facility]08-12-2025 Miscellaneous Notes* Telephone Encounter - Giovany Baron CNA - 03/06/2025 1:56 PM EDT Contacted patient in regards to rescheduling her 04/09 appointment. Patient requested to call back to reschedule documented in this encounterTogus [facility]08-12-2025 Telephone encounter Note* Telephone Encounter - Giovany Baron CNA - 03/06/2025 1:56 PM EDT Contacted patient in regards to rescheduling her 04/09 appointment. Patient requested to call back to reschedule [facility]08-01-[facility] History of Present illness Narrative* Shaylee Noonan DO - 02/23/2025 9:00 AM EDT Post op TKA bilateral staggered annual visit: The patient is seen and evaluated for annual bilateral staggered total knee arthroplasty visit. Pain is appropriately controlled. Denies chest pain or shortness of breath or palpitations. Continues to be consistent and diligent with home exercise program as well as physical therapy modalities. Physical therapy modalities were instructed. Happy with progress made. Physical Exam: The total knee incisions are both clean, dry and intact. Mild swelling as expected. Has a stable arc of motion without mechanical symptoms. No instability of the bilateral knee prosthesis. No rash, infection or DVT. The calf is supple. Gait is assisted with stiffness with mild antalgic component. Image Results: Xrays taken in the office today saved to the permanent record, bilateral AP , sunrise and lateral weightbearing films, show stable position and alignment of the staggered bilateral TKA prosthesis. Nosign of loosening, fracture or infection. Assessment: S/P bilateral staggered total knee arthroplasty-annual post-operative visit Treatment Plan: The nature of the findings were discussed at length. Continuance of regular exercise, weight management and fall precautions reviewed. snf antibiotic prophylaxis for dental or invasive work were reviewed. Numerous questions were answered. Follow-up in 3 year for repeat xray and exam, sooner if concerned. The patient is discharged in stable condition. documented in this encounterGolden [facility] [id number] History of Present illness Narrative* Danilo Cedillo, [employer] - 10/30/2024 8:20 AM EDT Images from the original note were not included. [place] [id number] SUBJECTIVE: Patient ID: Svetlana Davis is a 74 y.o. female. Chief Complaint Patient presents with Depression Patient presents for routine follow up States she is in PT right now for lumbar back pain. Is experiencing chronic flare up of neck and shoulder pain. She mentioned to PT about her neck, states therapist is requesting an order to treat her neck. She would like a breast exam. Is monitored by oncology for history of breast cancer. Moods overall have been stable Depression Visit: Follow-up Initial visit: Symptoms: no chest pain, no palpitations and no shortness of breath Follow-up visit: Symptoms: decreased concentration, depressed mood, malaise and muscle tension Frequency: Rarely Severity: Mild Current Treatment: SSRI's Response to treatment: Stable Hyperlipidemia This is a chronic problem. The current episode started more than 1 year ago. Recent lipid tests were reviewed and are variable. Exacerbating diseases include obesity. There are no known factors aggravating her hyperlipidemia. Pertinent negatives include no chest pain or shortness of breath. Current antihyperlipidemic treatment includes statins. The current treatment provides significant improvement of lipids. There are no compliance problems. The following portions of the patient's history were reviewed and updated as appropriate: allergies, current medications, past family history, past medical history, past social history, past surgicalhistory and problem list. Past Surgical History: Procedure Laterality Date BREAST BIOPSY Left 2009 benign BREAST LUMPECTOMY 07/16/2020 SECTION CHOLECYSTECTOMY COLONOSCOPY 05/2016 dr hykes-hemmrhoids HERNIA REPAIR umbilical HYSTERECTOMY 2009 COMPLETE JOINT REPLACEMENT Right knee LUMPECTOMY BREAST WITH NEEDLE LOCALIZATION Right 07/16/2020 Performed by Shaylee Howard DO at [facility] OOPHORECTOMY Bilateral 2010 Past Medical History: Diagnosis Date Arthritis Asthma Breast cancer (CMS-HCC) right Breast lesion Depression Fibromyalgia, primary Headache Obesity Rotator cuff (capsule) sprain Visual impairment glasses Immunization History Administered Date(s) Administered COVID-19, mRNA, LNP-S, PF, 30mcg/0.3mL Dose 01/07/2021, 01/30/2021 Influenza (IM) Preservative Free 03/26/2016 Influenza High Dose Preservative Free IM 05/03/2019 Influenza Vaccine, Quadrivalent, Adjuvanted 07/15/2023 Influenza, Injectable, quadrivalent (PF) 04/19/2020 Influenza, Unspecified 05/02/2018 Pneumococcal Conjugate 13-Valent 05/02/2018 Pneumococcal Polysaccharide 05/16/2020 REVIEW OF SYSTEMS: Review of Systems Constitutional: Negative for chills and fever. HENT: Negative. Eyes: Negative for visual disturbance. Respiratory: Negative for chest tightness and shortness of breath. Cardiovascular: Negative for chest pain and palpitations. Gastrointestinal: Negative. Endocrine: Negative. Genitourinary: Negative for menstrual problem and pelvic pain. Musculoskeletal: Positive for arthralgias. Neck pain Skin: Negative. Allergic/Immunologic: Negative. Neurological: Negative for syncope and facial asymmetry. Hematological: Does not bruise/bleed easily. Psychiatric/Behavioral: Negative. PHYSICAL EXAMINATION: Vitals: 10/30/24 0822 BP: 102/74 BP Site: Left Arm BP Postition: Sitting Pulse: 64 Resp: 18 Temp: 36.6 C (97.8 F) TempSrc: Oral SpO2: 96% Weight: 113.3 kg (249 lb 11.2 oz) Height: 162.6 cm (5' 4 ) Patient noted to have elevated BMI and the following intervention(s) were applied: encouragement toexercise. Physical Exam Vitals and nursing note reviewed. Constitutional: General: She is not in acute distress. Appearance: She is well-developed. She is not diaphoretic. HENT: Head: Normocephalic and atraumatic. Right Ear: Tympanic membrane and external ear normal. Left Ear: Tympanic membrane and external ear normal. Nose: Nose normal. Mouth/Throat: Mouth: Mucous membranes are moist. Pharynx: No oropharyngeal exudate. Eyes: General: Right eye: No discharge. Left eye: No discharge. Conjunctiva/sclera: Conjunctivae normal. Pupils: Pupils are equal, round, and reactive to light. Neck: Thyroid: No thyromegaly. Vascular: No JVD. Cardiovascular: Rate and Rhythm: Normal rate and regular rhythm. Heart sounds: Normal heart sounds. No murmur heard. No friction rub. No gallop. Pulmonary: Effort: Pulmonary effort is normal. Breath sounds: Normal breath sounds. Chest: Comments: Breast exam completed. No abnormal findings. Abdominal: General: Bowel sounds are normal. There is no distension. Palpations: Abdomen is soft. There is no mass. Tenderness: There is no abdominal tenderness. Musculoskeletal: General: Normal range of motion. Cervical back: Normal range of motion and neck supple. Lymphadenopathy: Cervical: No cervical adenopathy. Skin: General: Skin is warm and dry. Capillary Refill: Capillary refill takes less than 2 seconds. Neurological: Mental Status: She is alert and oriented to person, place, and time. Deep Tendon Reflexes: Reflexes are normal and symmetric. Psychiatric: Mood and Affect: Mood normal. Behavior: Behavior normal. Thought Content: Thought content normal. Judgment: Judgment normal. ASSESSMENT/PLAN: Svetlana was seen today for depression. Diagnoses and all orders for this visit: Recurrent major depression in remission - sertraline (ZOLOFT) 100 mg tablet; Take 1 tablet (100 mg total) by mouth in the morning. Obesity, morbid (CMS-HCC) Moderate persistent asthma with allergic rhinitis without complication - albuterol (PROVENTIL HFA;VENTOLIN HFA) 90 mcg/actuation inhaler; Inhale 2 puffs every 6 (six) hours as needed for wheezing or shortness of breath. - zdjsnkgycoy-lhxrfygua-otoxweas (TRELEGY ELLIPTA) 100-62.5-25 mcg blister with device; Inhale 1 puff once daily. - montelukast (SINGULAIR) 10 mg tablet; Take 1 tablet (10 mg total) by mouth nightly. Fibromyalgia - gabapentin (NEURONTIN) 100 mg capsule; Take 1 capsule (100 mg total) by mouth 3 (three) times a day. Mixed hyperlipidemia - rosuvastatin (CRESTOR) 5 mg tablet; Take 1 tablet (5 mg total) by mouth in the morning. Neck pain - Ambulatory referral to Physical Therapy (Non-[facility]); Future - X-ray spine cervical 3 views or less; Future Depression Depression: Not at risk (10/30/2024) PHQ-2 PHQ-2 Score: 0 Stable. Continue sertraline Fibromyalgia Continue gabapentin 100 mg oral TID Mixed hyperlipidemia Continue rosuvastatin 5 mg oral daily Asthma Currently controlled. Lizett Ochoata sample provided today Reorder ProAir MDI PRN as directed Continue montelukast 10 mg oral daily Chronic neck pain Currently in PT for chronic lumbar back pain. She is requesting to have PT for her neck as well. Xray of neck Body mass index is 42.86 kg/m . Patient noted to have elevated BMI and the following intervention(s) were applied: Discussed current weight today. Consider healthy food choices, portion control. Avoid sugary beverages and high concentrated sweets. Routine exercise regimen encouraged. The OARRS/MAPPS database was reviewed today and found to be appropriate. No indication of medication diversion, or non compliance. ALL QUESTIONS ANSWERED Total time spent was 35 minutes: Preparing to see the patient (e.g., review of tests) Obtaining and/or reviewing separately obtained history Performing a medically appropriate examination and/or evaluation Counseling and educating the patient/family/caregiver Ordering medications, tests, or procedures Follow-up: 5 months Asthma, fibromyalgia, arthritis, depression VIKI Benitez 10/30/24 0910 [facility] History of Present illness Narrative* VIKI Benitez - 09/12/2024 1:00 PM EST Images from the original note were not included. [place] [id number] SUBJECTIVE: Patient ID: Svetlana Davis is a 74 y.o. female. Chief Complaint Patient presents with Sinus Problem Cough, congestions States she was seen approximately 12 days ago and was diagnosed with sinus infection. Was prescribed 10 day course of Augmentin. She finished this on Wednesday. Yesterday, she awakened to the same symptoms. Ear pain, increased sinus congestion, sinus headache, cough with yellow nasal secretions. She is asthmatic. States her currently has influenza A. Sinus Problem This is a recurrent problem. The current episode started yesterday. The problem has been gradually worsening since onset. Her pain is at a severity of 5/10. The pain is moderate. Associated symptoms include chills, congestion, coughing, ear pain, headaches, a hoarse voice, sinus pressure and a sorethroat. Pertinent negatives include no shortness of breath. Past treatments include acetaminophen. The treatment provided no relief. The following portions of the patient's history were reviewed and updated as appropriate: allergies, current medications, past family history, past medical history, past social history, past surgicalhistory and problem list. Past Surgical History: Procedure Laterality Date BREAST BIOPSY Left 2009 benign BREAST LUMPECTOMY 07/16/2020 SECTION [facility] HYSTERECTOMY 2009 COMPLETE JOINT REPLACEMENT Right knee LUMPECTOMY BREAST WITH NEEDLE LOCALIZATION Right 07/16/2020 Performed by Shaylee Howard DO at [facility] OOPHORECTOMY Bilateral 2009 Past Medical History: Diagnosis Date Arthritis Asthma Breast cancer ([facility]-HCC) right Breast lesion Depression Fibromyalgia, primary Headache Obesity Rotator cuff (capsule) sprain Visual impairment glasses Immunization History Administered Date(s) Administered COVID-19, mRNA, LNP-S, PF, 30mcg/0.3mL Dose 01/07/2021, 01/30/2021 Influenza (IM) Preservative Free 03/26/2016 Influenza High Dose Preservative Free IM 05/03/2019 Influenza Vaccine, Quadrivalent, Adjuvanted 07/15/2023 Influenza, Injectable, quadrivalent (PF) 04/19/2020 Influenza, Unspecified 05/02/2018 Pneumococcal Conjugate 13-Valent 05/02/2018 Pneumococcal Polysaccharide 05/16/2020 REVIEW OF SYSTEMS: Review of Systems Constitutional: Positive for chills. Negative for fever. HENT: Positive for congestion, ear pain, hoarse voice, postnasal drip, rhinorrhea, sinus pressure, sinus pain, sore throat and voice change. Eyes: Negative for visual disturbance. Respiratory: Positive for cough and chest tightness. Negative for shortness of breath. Cardiovascular: Negative for chest pain and palpitations. Endocrine: Negative. Genitourinary: Negative for menstrual problem and pelvic pain. Allergic/Immunologic: Negative. Neurological: Positive for headaches. Negative for syncope and facial asymmetry. Hematological: Does not bruise/bleed easily. PHYSICAL EXAMINATION: Vitals: 09/12/24 1303 BP: 146/82 BP Site: Left Arm BP Postition: Sitting BP CUFF SIZE: L (13-17 inches) Pulse: 67 Resp: 18 Temp: 36.6 C (97.8 F) TempSrc: Oral SpO2: 99% Weight: 113.3 kg (249 lb 12.8 oz) Height: 162.6 cm (5' 4.02 ) Patient noted to have elevated BMI and the following intervention(s) were applied: encouragement toexercise. Physical Exam Vitals and nursing note reviewed. Constitutional: General: She is not in acute distress. Appearance: She is well-developed. She is not diaphoretic. HENT: Head: Normocephalic and atraumatic. Right Ear: Tympanic membrane and external ear normal. Left Ear: External ear normal. Tympanic membrane is erythematous. Nose: Nasal tenderness, mucosal edema and congestion present. Right Turbinates: Swollen. Left Turbinates: Swollen. Right Sinus: Maxillary sinus tenderness and frontal sinus tenderness present. Left Sinus: Maxillary sinus tenderness and frontal sinus tenderness present. Mouth/Throat: Mouth: Mucous membranes are moist. Pharynx: Posterior oropharyngeal erythema and postnasal drip present. No oropharyngeal exudate. Tonsils: 2+ on the right. 2+ on the left. Eyes: General: Right eye: No discharge. Left eye: No discharge. Conjunctiva/sclera: Conjunctivae normal. Pupils: Pupils are equal, round, and reactive to light. Neck: Thyroid: No thyromegaly. Vascular: No JVD. Cardiovascular: Rate and Rhythm: Normal rate and regular rhythm. Heart sounds: Normal heart sounds. No murmur heard. No friction rub. No gallop. Pulmonary: Effort: Pulmonary effort is normal. Breath sounds: Normal breath sounds. Abdominal: General: Bowel sounds are normal. There is no distension. Palpations: Abdomen is soft. There is no mass. Tenderness: There is no abdominal tenderness. Musculoskeletal: General: Normal range of motion. Cervical back: Normal range of motion and neck supple. Lymphadenopathy: Cervical: No cervical adenopathy. Skin: General: Skin is warm and dry. Capillary Refill: Capillary refill takes less than 2 seconds. Neurological: Mental Status: She is alert and oriented to person, place, and time. Deep Tendon Reflexes: Reflexes are normal and symmetric. Psychiatric: Mood and Affect: Mood normal. Behavior: Behavior normal. Thought Content: Thought content normal. Judgment: Judgment normal. ASSESSMENT/PLAN: Svetlana was seen today for sinus problem. Diagnoses and all orders for this visit: Acute non-recurrent maxillary sinusitis - amoxicillin-pot clavulanate (AUGMENTIN) 875-125 mg per tablet; Take 1 tablet by mouth in the morning and 1 tablet before bedtime. Do all this for 7 days. - methylPREDNISolone (MEDROL, SUJATHA,) 4 mg tablet; follow package directions Flu-like symptoms - POCT Influenza A/Influenza B/SARS-COV-2 Veritor Moderate persistent allergic asthma - quefqcvehza-czjwpxqgq-hzqjonis (TRELEGY ELLIPTA) 100-62.5-25 mcg blister with device; Inhale 1 puff once daily. Influenza and COVID testing is negative in office today Samples Trelegy Ellipta provided today Cool mist humidification for congestion, warm salt water gargles as needed for sore throat. Motrin or Tylenol as needed per car spotter guidelines for fever or pain. Start Medrol 4 mg dose pack as directed Augmentin, 7 day course. She just finished 10 days. ALL QUESTIONS ANSWERED Total time spent was 25 minutes: Preparing to see the patient (e.g., review of tests) Obtaining and/or reviewing separately obtained history Performing a medically appropriate examination and/or evaluation Counseling and educating the patient/family/caregiver Ordering medications, tests, or procedures Follow-up: Next scheduled Sooner if needed VIKI Benitez 09/12/24 1332 [facility] History of Present illness Narrative* Samantha Zamarripa MD - 09/01/2024 8:45 AM EST Images from the original note were not included. [facility] 09/01/24 Svetlana Davis is a 74 y.o. year old female seen today in the oncology clinic. No chief complaint on file. Tele-Oncology Telemedicine Consult Note Consent Statement: I discussed risks, benefits, and alternatives of a real-time synchronous audiovisual consultation with the patient (and any accompanying persons) including the risks that the patient's personal health details and medical records will be discussed over real-time, synchronous, interactive video/audio/telecommunication technology, the visit will not be recorded without the express consent of both the provider and the patient, and that there are some limitations compared to [id number] evaluations. We elected to proceed. History of Present Illness: Mrs. Davis is a 74 y.o. female without significant family history of breast cancer who had abnormalmammogram May 2020 and underwent a stereotactic biopsy of right breast at 01:00 o'clock position. 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 ERPR strongly positive. Patient underwent lumpectomy by Dr. Howard 06/2020, final path showed: Right breast, lumpectomy: Focal ductal carcinoma in situ (DCIS); cribriform and solid; intermediate nuclear grade; with calcifications; without necrosis; associated with biopsy site changes.. Vascular calcifications also identified. Separate incidental fibroadenoma (0.5 cm). The DCIS is 5 mm, adequate margin grade 2. Femara 09/2020 (headaches), discontinued since 2020. Interval history: The patient is currently not on any adjuvant hormonal therapy. She has been on observation over the past 4 years. Overall She is doing well. She complains about occasional pain over her right breast, currently she does not have any discomfort. No nipple discharge. Patient denies any significant shortness of breath. Her weight has been stable. She has an Aunt on her dad's side had breast cancer. Past Medical History: Diagnosis Date Arthritis Asthma Breast cancer (CMS-HCC) right Breast lesion Depression Fibromyalgia, primary Headache Obesity Rotator cuff (capsule) sprain Visual impairment glasses Past Surgical History: Procedure Laterality Date BREAST BIOPSY Left 2009 benign BREAST LUMPECTOMY 07/16/2020 SECTION CHOLECYSTECTOMY COLONOSCOPY 05/2016 dr meyer-hemmrhoids HERNIA REPAIR umbilical HYSTERECTOMY 2009 COMPLETE JOINT REPLACEMENT Right knee LUMPECTOMY BREAST WITH NEEDLE LOCALIZATION Right 07/16/2020 Performed by Shaylee Howard DO at [facility] OOPHORECTOMY Bilateral 2010 Family History Problem Relation Age of Onset Diabetes Mother Heart disease Mother Stroke Mother Thyroid cancer Mother Ulcers Mother Lung disease Father Heart disease Father Stroke Father Diabetes Father Breast cancer Paternal Aunt Social History Socioeconomic History Marital status: Highest education level: 12th grade Tobacco Use Smoking status: Never Smokeless tobacco: Never Substance and Sexual Activity Alcohol use: No Drug use: No Sexual activity: Defer Partners: Male Social Drivers of Health Financial Resource Strain: Low Risk (05/12/2021) Overall Financial Resource Strain (CARDIA) Difficulty of Paying Living Expenses: Not very hard Food Insecurity: No Food Insecurity (08/31/2024) Hunger Screening Food Insecurity - Worry: Never True Food Insecurity - Inability: Never True Transportation Needs: No Transportation Needs (05/12/2021) PRAPARE - Transportation Lack of Transportation (Medical): No Lack of Transportation (Non-Medical): No Physical Activity: Inactive (05/12/2021) Exercise Vital Sign Days of Exercise per Week: 0 days Minutes of Exercise per Session: 10 min Stress: No Stress Concern Present (05/12/2021) [employer] - Occupational Stress Questionnaire Feeling of Stress : Not at all Social Connections: Socially Integrated (05/12/2021) Social Connection and Isolation Panel [NHANES] Frequency of Communication with Friends and Family: More than three times a week Frequency of Social Gatherings with Friends and Family: Three times a week Attends Mu-Ism Services: More than 4 times per year Active Member of Clubs or Organizations: Yes Attends Club or Organization Meetings: More than 4 times per year Marital Status: Interpersonal Safety: Not At Risk (05/12/2021) Humiliation, Afraid, Rape, and Kick questionnaire Fear of Current or Ex-Partner: No Emotionally Abused: No Physically Abused: No Sexually Abused: No Allergies Allergen Reactions Bee Venom Protein (Honey Bee) Shortness Of Breath Cat Dander Shortness Of Breath Eyes water, runny nose Savannah Swelling Savannah Oil Swelling Oxytetracycline Other Reaction(s): Unknown Unsure, as a child Ragweed Pollen Other (See Comments) Nose runs, eyes hurt. Also with goldenrod. Shellfish Derived Other Reaction(s): Unknown Shrimp Nausea, Syncope and GI Disturbance Other Reaction(s): Syncope Sulfa (Sulfonamide Antibiotics) Hives As a child Terramycin Unsure, as a child Ibuprofen Hives and Rash Other Reaction(s): Unknown Tagamet [Cimetidine] Hives, Itching and Rash Toradol [Ketorolac] Hives, Itching and Rash Medication List Accurate as of September 01, 2024 8:59 AM. If you have any questions, ask your nurse or doctor. Medications Continued This Visit * albuterol 90 mcg/actuation inhaler Quantity: 18 g Refills: 6 Doctor's comments: Please dispense whichever albuterol HFA product is preferred by patient insurance. For diagnoses: Moderate persistent asthma with allergic rhinitis without complication Signed by: VIKI Niño INHALE 2 PUFFS BY MOUTH EVERY 6 HOURS NEEDED FOR WHEEZING and SHORTNESS OF BREATH Commonly known as: PROVENTIL HFA;VENTOLIN HFA * albuterol 2.5 mg /3 mL (0.083 %) nebulizer solution Quantity: 150 mL Refills: 2 For diagnoses: Moderate persistent allergic asthma Dose: 2.5 mg Signed by: VIKI Niño 2.5 mg, nebulization, Every 4 hours PRN Commonly known as: PROVENTIL,VENTOLIN amoxicillin 500 mg capsule Quantity: 20 capsule Refills: 0 Dose: 500 mg Signed by: VIKI Hyman 500 mg, oral, 2 times daily Commonly known as: AMOXIL ascorbic acid (vitamin C) 100 MG tablet Refills: 0 Dose: 500 mg Commonly known as: VITAMIN C calcium carbonate-vitamin D3 500 mg (1,250 mg) - 200 units per tablet Refills: 0 Dose: 1 tablet Commonly known as: OSCAL 500 + D clotrimazole-betamethasone cream Quantity: 45 g Refills: 2 For diagnoses: Atopic dermatitis, unspecified type Dose: 1 Application Signed by: VIKI Niño 1 Application, topical, 2 times daily Commonly known as: LOTRISONE fluticasone propionate 50 mcg/actuation nasal spray Quantity: 16 g Refills: 6 For diagnoses: Chronic allergic rhinitis due to pollen Dose: 1 spray Signed by: VIKI Niño 1 spray, nasal, Daily Commonly known as: FLONASE gabapentin 100 mg capsule Quantity: 270 capsule Refills: 1 Doctor's comments: 90 Day Supply with one refill For diagnoses: Neuropathic pain, Fibromyalgia Dose: 100 mg Signed by: VIKI Niño 100 mg, oral Commonly known as: NEURONTIN montelukast 10 mg tablet Quantity: 90 tablet Refills: 3 For diagnoses: Moderate persistent allergic asthma Dose: 10 mg Signed by: VIKI Niño 10 mg, oral, Nightly Commonly known as: SINGULAIR rosuvastatin 5 mg tablet Quantity: 90 tablet Refills: 1 For diagnoses: Mixed hyperlipidemia Dose: 5 mg Signed by: VIKI Niño 5 mg, oral, Daily Commonly known as: CRESTOR sertraline 100 mg tablet Quantity: 90 tablet Refills: 1 For diagnoses: Recurrent major depression in remission (CMS-HCC) Dose: 100 mg Signed by: VIKI Niño 100 mg, oral, Daily Commonly known as: ZOLOFT TRELEGY ELLIPTA 100-62.5-25 mcg blister with device Quantity: 28 each Refills: 1 Doctor's comments: Do not fill per patient request For diagnoses: Moderate persistent allergic asthma Dose: 1 puff Signed by: VIKI Niño 1 puff, inhalation, Daily Generic drug: aglkhniasim-annbaspuk-wrrjlhoy * This list has 2 medication(s) that are the same as other medications prescribed for you. Read thedirections carefully, and ask your doctor or other care provider to review them with you. Review of Symptoms: Review of Systems Constitutional: Positive for fatigue. Skin: Positive for wound. All other systems reviewed and are negative. ECO- Symptomatic; fully ambulatory Physical Exam: General: Well appearing, in no acute distress. Vitals: LMP (LMP Unknown) There is no height or weight on file to calculate BMI. Eyes: No icterus, no conjuctival erythema ENT: Pharyngeal mucosa was moist without exudate and inflammation or ulcerations. Tongue was midline and appeared normal.Gums were unremarkable. Lymph nodes: No palpable adenopathy Neck: Supple. There were no masses, tenderness. Trachea was midline. Respiratory: Respirations were non-labored. Lungs were clear to auscultation. There was no dullnessto percussion. Cardiac: Regular rate and rhythm, S1 and S2 sounds were normal. There were no rubs or gallops. Abdomen: Soft, non-tender, Nondistended. Bowel sounds audible in all four quadrants. There were no palpable masses. The liver and spleen were not enlarged. Extremities: There was no clubbing, Cyanosis, edema. Skin: There was no obvious rashes, bruising or ecchymosis. Neurologic: There was no unilateral weakness. Mood and affect: Normal. Breast exam: Lumpectomy around 1 o'clock position, incision is healing very well. Radiation skin discoloration over right breast. Left breast is unremarkable. No palpable bilateral axillary lymphadenopathy. Recent Imaging: Ultrasound Guided Localization Breast Initial Right Result Date: 07/16/2020 Narrative: History: 70-year-old female with biopsy-proven right breast cancer. Wire localization was requested. Exam/Technique: The procedure was performed by Dr. Gomez. Benefits and potential risks of procedure were explained to the patient and informed written consent was obtained. Following appropriate prep and drape and using lidocaine for local anesthesia, a localization wire was placed within the lesion and adjacent to the biopsy marker under ultrasound guidance. Images confirm good placement. No immediate competitions were encountered. Patient tolerated well and was sent to surgeryin stable condition. IMPRESSION: Successful uncomplicated ultrasound-guided wire localization of the lesion in the 1:00 position of the right breast. Finalized by Iván Gomez MD on 07/16/2020 9:02 AM Mammography Specimen Films Right Result Date: 07/16/2020 Narrative: Impression: Specimen radiographs from a right breast lumpectomy were obtained and show the localization wire to be within the specimen, however, the biopsy marker is not definitively identified. This report was conveyed to the surgeon at the time of the examination. Finalized by Iván Gomez MD on 07/16/2020 2:19 PM Recent Labs: No results found for this or any previous visit (from the past 2 weeks). Diagnosis Problem list: Problem List Items Addressed This Visit Other Ductal carcinoma in situ (DCIS) of right breast - Primary Impression: Small grade 2 DCIS, ERPR strongly positive in right breast status post lumpectomy 06/2020 [facility] 09/2020, significant headaches History of asthma Plan: I reviewed the patient's final path in details. Discussed the prognosis of DCIS with patient. She had a small tumor and underwent complete resection. Given ERPR status, she is a good candidate for adjuvant hormonal therapy. Unfortunately due to significant headaches patient decided to forego future hormonal therapy. She is not interested in trying tamoxifen. Her recent DEXA scan showed normal density 2022. Screening mammogram 04/2024 was unremarkable. Mammogram screening bilateral April 2025 Follow-up with October 2025ZUNILDA CMP Patient will let me know if she has persistent pain in her right breast. Samantha Zamarripa MD Please note that portions of this note were generated using voice recognition [employer] dictation software. Although every effort was made to ensure the accuracy of this automated assistant property manager, some errors in assistant property manager may have occurred. CC: Patient Care Team: VIKI Benitez as PCP - General (Family Medicine) Tammy Tong DO as Consulting Physician (Radiation Oncology) Samantha Zamarripa MD as Consulting Physician (Hematology) PCP:Danilo Cedillo Referring MD: Danilo Cedillo AP* [facility] Instructions* Patient Instructions* Samantha Zamarripa MD - 09/01/2024 8:45 AM EST Mammogram screening bilateral April 2025 Follow-up with October 2025[facility] Patient will let me know if she has persistent pain in her right breast. [facility] History of Present illness Narrative* VIKI Laboy - 08/31/2024 1:40 PM EST [address] [place] [address] Patient: Svetlana Davis Date of : 1950 Encounter Date: 08/31/2024 History of Present Illness: The patient is a 74 y.o. female, an established patient, and is here for Chief Complaint Patient presents with Sinus Problem Not going away-3 weeks-Aug 25- Neg Covid 08/25, ear pain . HPI Symptoms started 3 wks ago with waxing and waning congestions, sinus pressure and pain, ANTHONY ear pain, mild cough with yellow mucous. Pt denies fever, SOB or dizziness. She has been trying Zyrtec, flonase, salt water rinses which help mildly. She has not felt her asthma has been worse. Problem List Items Addressed This Visit None Visit Diagnoses Acute non-recurrent maxillary sinusitis - Primary Past Medical, Family, and Social History Update: The following portions of the patient's history were reviewed and updated as appropriate: allergies, current medications, past family history, past medical history, past social history, past surgicalhistory and problem list. Past Medical History: Diagnosis Date Arthritis Asthma Breast cancer ([facility]) right Breast lesion Depression Fibromyalgia, primary Headache Obesity Rotator cuff (capsule) sprain Visual impairment glasses Past Surgical History: Procedure Laterality Date BREAST BIOPSY Left 2010 benign BREAST LUMPECTOMY 07/16/2020 SE[facility] umbilical HYSTERECTOMY 2009 COMPLETE JOINT REPLACEMENT Right knee LUMPECTOMY BREAST WITH NEEDLE LOCALIZATION Right 07/16/2020 Performed by Shaylee Howard DO at [facility] OOPHORECTOMY Bilateral 2009 Current Outpatient Medications Medication Sig Dispense Refill albuterol (PROVENTIL HFA;VENTOLIN HFA) 90 mcg/actuation inhaler INHALE 2 PUFFS BY MOUTH EVERY 6 HOURS NEEDED FOR WHEEZING and SHORTNESS OF BREATH 18 g 6 albuterol (PROVENTIL,VENTOLIN) 2.5 mg /3 mL (0.083 %) nebulizer solution Inhale 3 mL (2.5 mg total)by nebulization every 4 (four) hours as needed for wheezing or shortness of breath. 150 mL 2 ascorbic acid, vitamin C, (VITAMIN C) 100 MG tablet Take 5 tablets (500 mg total) by mouth in the morning. calcium carbonate-vitamin D3 (OSCAL 500 + D) 500 mg(1,250mg) -200 units per tablet Take 1 tablet bymouth in the morning and 1 tablet in the evening. Take with meals. clotrimazole-betamethasone (LOTRISONE) cream Apply 1 Application topically in the morning and 1 Application before bedtime. 45 g 2 fluticasone propionate (FLONASE) 50 mcg/actuation nasal spray Administer 1 spray into each nostril in the morning. 16 g 6 kfoshaxabgm-byjbjexvt-ruuwerms (TRELEGY ELLIPTA) 100-62.5-25 mcg blister with device Inhale 1 puff once daily. 28 each 1 gabapentin (NEURONTIN) 100 mg capsule TAKE 1 CAPSULE BY MOUTH THREE TIMES DAILY 270 capsule 1 montelukast (SINGULAIR) 10 mg tablet Take 1 tablet (10 mg total) by mouth nightly. 90 tablet 3 rosuvastatin (CRESTOR) 5 mg tablet Take 1 tablet (5 mg total) by mouth in the morning. 90 tablet 1 sertraline (ZOLOFT) 100 mg tablet Take 1 tablet (100 mg total) by mouth in the morning. 90 tablet 1 amoxicillin (AMOXIL) 500 mg capsule Take 1 capsule (500 mg total) by mouth in the morning and 1 capsule (500 mg total) before bedtime. Do all this for 10 days. 20 capsule 0 No current facility-administered medications for this visit. (All medications reviewed and updated by provider since last office visit or hospitalization) Allergies: Bee venom protein (honey bee), Cat dander, Savannah, Savannah oil, Oxytetracycline, Ragweed pollen, Shellfish derived, Shrimp, Sulfa (sulfonamide antibiotics), Terramycin, Ibuprofen, Tagamet [cimetidine], and Toradol [ketorolac] Tobacco History: Social History Tobacco Use Smoking Status Never Smokeless Tobacco Never (If patient a smoker, smoking cessation counseling offered) Social History: Social History Substance and Sexual Activity Alcohol Use No Review of Systems: Review of Systems Constitutional: Positive for fatigue. Negative for activity change, appetite change, fever and unexpected weight change. HENT: Positive for congestion, ear pain, hearing loss, postnasal drip, rhinorrhea, sinus pressure and sinus pain. Negative for sore throat. Respiratory: Positive for cough. Negative for chest tightness, shortness of breath and wheezing. Cardiovascular: Negative. Gastrointestinal: Negative. Neurological: Negative. Physical Exam: BP 138/84 (BP Site: Left Arm, BP Postition: Sitting, BP CUFF SIZE: L (13-17 inches)) Pulse 60 Temp 36.7 C (98.1 F) (Oral) Resp 20 Wt 113.5 kg (250 lb 4.8 oz) LMP (LMP Unknown) SpO2 98% BMI 42.96 kg/m Physical Exam Vitals reviewed. Constitutional: Appearance: Normal appearance. She is obese. HENT: Head: Normocephalic and atraumatic. Right Ear: Tympanic membrane, ear canal and external ear normal. Left Ear: Tympanic membrane, ear canal and external ear normal. Nose: Congestion and rhinorrhea present. Mouth/Throat: Mouth: Mucous membranes are moist. Eyes: Pupils: Pupils are equal, round, and reactive to light. Cardiovascular: Rate and Rhythm: Normal rate and regular rhythm. Heart sounds: Normal heart sounds. Pulmonary: Effort: Pulmonary effort is normal. Breath sounds: Normal breath sounds. Abdominal: General: Bowel sounds are normal. Palpations: Abdomen is soft. Musculoskeletal: Right lower leg: Edema (trace edema erickson) present. Left lower leg: Edema (trace edema erickson) present. Lymphadenopathy: Cervical: No cervical adenopathy. Skin: General: Skin is warm. Neurological: General: No focal deficit present. Mental Status: She is alert and oriented to person, place, and time. Psychiatric: Mood and Affect: Mood normal. Behavior: Behavior normal. Assessment and Plan: Svetlana was seen today for sinus problem. Diagnoses and all orders for this visit: Acute non-recurrent maxillary sinusitis Other orders - amoxicillin (AMOXIL) 500 mg capsule; Take 1 capsule (500 mg total) by mouth in the morning and 1 capsule (500 mg total) before bedtime. Do all this for 10 days. Follow-up: Due to the duration of her symptoms, will start amoxicillin for 10 days and she should continue herantihistamine, nasal rinses, Flonase. She should avoid decongestants. She may use humidifier in herbedroom. She should let provider know if she develops a rash to her right face although this may besinus pain from her sinusitis. Follow-up with PCP for visit in October or sooner if symptoms become worse. VIKI LABOY APRN-CNP 08/31/24 1414 documented in this encounterCincinnati [facility] CenterAPERA [facility]AGS12-23-2024 Miscellaneous Notes* Telephone Encounter - Gayathrimaura Wagner CMA - 07/17/2024 9:57 AM EST ----- Message from VIKI Niño sent at 07/17/2024 9:03 AM EST ----- Reviewed. Please inform patient xrays reveal diffuse arthritis of her thoracic and lumbar spine. * Telephone Encounter - Belkys Cain - 07/17/2024 9:57 AM EST Patient has been informed, if PT is available she would like judi pt at the [facility].also does she need to keep the appointment 08/16? * Telephone Encounter - VIKI Benitez - 07/17/2024 9:57 AM EST She can cancel July appointment. I put in orders for PT at [place]. [facility] in [facility] Telephone encounter Note* Telephone Encounter - Fantasma Wagner CMA - 07/17/2024 9:57 AM EST ----- Message from VIKI Niño sent at 07/17/2024 9:03 AM EST ----- Reviewed. Please inform patient xrays reveal diffuse arthritis of her thoracic and lumbar spine. [facility] Telephone encounter Note* Telephone Encounter - Belkys Cain - 07/17/2024 9:57 AM EST Patient has been informed, if PT is available she would like judi pt at the [facility].also does she need to keep the appointment 08/16? [facility] Telephone encounter Note* Telephone Encounter - VIKI Benitez - 07/17/2024 9:57 AM EST She can cancel July appointment. I put in orders for PT at [place]. [facility] SystemEvaluation note* Diagnosis Degeneration of intervertebral disc of lumbar region without discogenic back pain or lower extremity pain- Primary documented in this encounter [facility] SystemEvaluation note* Diagnosis Ductal carcinoma in situ (DCIS) of right breast- Primary documented in this encounter [facility] SystemEvaluation note* Diagnosis Acute non-recurrent maxillary sinusitis- Primary documented in this encounter [facility] SystemEvaluation note* Diagnosis Ductal carcinoma in situ (DCIS) of right breast- Primary documented in this encounter [facility] SystemEvaluation note* Diagnosis Acute non-recurrent maxillary sinusitis- Primary Flu-like symptoms Moderate persistent allergic asthma documented in this encounter [facility] SystemEvaluation note* Diagnosis Recurrent major depression in remission ([facility]) Major depressive disorder, recurrent episode, in full remission documented in this encounter [facility] SystemEvaluation note* Diagnosis Recurrent major depression in remission- Primary Major depressive disorder, recurrent episode, in full remission Obesity, morbid ([facility]) Morbid obesity Moderate persistent asthma with allergic rhinitis without complication Fibromyalgia Unspecified myalgia and myositis Mixed hyperlipidemia Neck pain Cervicalgia documented in this encounter [facility] SystemEvaluation note* Diagnosis Status post bilateral knee replacements- Primary documented in this encounter [facility] HealthcareEvaluation noteNo assessment information availableWhite Hospital Work Phone: Evaluation note* Diagnosis Chronic pansinusitis- Primary Other chronic sinusitis Moderate persistent allergic asthma Mixed hyperlipidemia Hypothyroidism, unspecified type IFG (impaired fasting glucose) documented in this encounter [facility] SystemEvaluation note* Diagnosis Chronic sinusitis, unspecified location- Primary Nasal septal deviation Deviated nasal septum documented in this encounter [facility] SystemEvaluation note* Diagnosis Chronic maxillary sinusitis- Primary Chronic ethmoidal sinusitis DNS (deviated nasal septum) Deviated nasal septum documented in this encounter [facility] HealthcareEvaluation note* Diagnosis Chronic sinusitis, unspecified location- Primary Moderate persistent allergic asthma Mixed hyperlipidemia Thrush, oral documented in this encounter [facility] SystemEvaluation note* Diagnosis Thrush, oral documented in this encounter [facility] SystemEvaluation note* Diagnosis Encounter for subsequent annual wellness visit (AWV) in Medicare patient- Primary documented in this encounter [facility] SystemEvaluation note* Diagnosis Chronic maxillary sinusitis- Primary DNS (deviated nasal septum) Deviated nasal septum documented in this encounter [facility] HealthcareInstructionsNot on filedocumented in this encounterProNorthwest Medical Center Health SystemInstructionsNot on filedocumented in this encounterProThe Jewish Hospital SystemInstructions* Attachments The following attachments cannot be sent through Care Everywhere. * Sinusitis in adults (Croatian) documented in this encounterProNorthwest Medical Center Health SystemInstructions* Attachments The following attachments cannot be sent through Care Everywhere. * Sinusitis in adults (Croatian) documented in this encounterProNorthwest Medical Center Health SystemInstructionsNot on file documented in this encounterProThe Jewish Hospital SystemInstructions* Attachments The following attachments cannot be sent through Care Everywhere. * Osteoarthritis (Croatian) * Fibromyalgia (Croatian) documented in this encounterProNorthwest Medical Center Health SystemInstructionsNot on file documented in this encounterProNorthwest Medical Center Health SystemInstructionsNot on file documented in this encounterProNorthwest Medical Center Health SystemInstructionsNot on file documented in this encounterProThe Jewish Hospital SystemInstructionsNot on file documented in this encounterSumma Health [facility] SystemReason for referral (narrative)No reason for referral information availableWhite Hospital Work Phone: Summary Purpose Family History No Family History Records FoundNo Family History Records FoundNo Family History Records FoundNo Family History Records FoundNo Family History Records Found Advance Directives No Advanced Directives Records Found Advance Directive Response Recorded Date/ Time Advance Directives No August 09, 2020 8:00pm Chief Complaint and Reason for Visit Chief Complaint Admit Date Chest congestion March 28, 2025 12:29pm Additional Source Comments INFORMATION SOURCE (unrecogn ized section and content) DATE CREATED AUTHOR 01/15/2018 [facility] DATE CREATED AUTHOR AUTHOR'S ORGANIZ ATION 05/03/2024 [facility] DATE CREATED AUTHOR AUTHOR'S ORGANIZ ATION 05/09/2025 [facility] DATE CREATED AUTHOR AUTHOR'S ORGANIZ ATION 05/09/2025 [facility] DATE CREATED AUTHOR AUTHOR'S ORGANIZ ATION 05/25/2025 [facility] EPIC Care Teams (unrecognized sec tion and content) Team MemberRelationshipSpecialtyStart DateEnd Date Danilo Cedillo APRN-[facility] [address] [place] [address] PCP - GeneralFamily Medicine07/29/17Team MemberRelationshipSpecialtyStart DateEnd Date Danilo Cedillo DIE [facility] [address] [place] [address] PCP - GeneralFamily Medicine07/29/17Team MemberRelationshipSpecialtyStart DateEnd Date Danilo Cedillo DIE [facility] [address] [place] [address] PCP - GeneralFamily Medicine07/29/17Team MemberRelationshipSpecialtyStart DateEnd Date Danilo Cedillo DIE [facility] [address] [place] [address] PCP - GeneralFamily Medicine07/29/17Team MemberRelationshipSpecialtyStart DateEnd Date Danilo Cedillo, DIE [facility] [address] [place] [address] PCP - GeneralFamily Medicine07/29/17Team MemberRelationshipSpecialtyStart DateEnd Date Danilo Cedillo, DIE [facility] [address] [place] [address] PCP - GeneralFamily Medicine07/29/17Team MemberRelationshipSpecialtyStart DateEnd Date Danilo Cedillo APRN-[employer] [address] [place] [address] PCP - GeneralFamily Medicine07/29/17Team MemberRelationshipSpecialtyStart DateEnd Date Daksha Moon MD PCP - GeneralInternal Medicine04/19/23 Danilo Cedillo CRNP Primary [facility] ProviderNd[facility] Practitioner03/25/23Team MemberRelationshipSpecialty Start DateEnd Date Daksha Moon DO [address] [place] [address] PCP - GeneralInternal Medicine02/16/25 Team Status: Active Member Role Status Dates Daksha Moon DO Primary Care Provider Active Team Status: Inactive Member Role Status Dates Jacqueline Avila APRN Attending Provider Active Start: March 28, 2025 End: March 28, 2025Raul Johnson Care ProviderActiveStart: March 28, 2025 End: March 28, 2025Team MemberRelationshipSpecialtyStart DateEnd Date Daksha Moon DO [address] [place] [address] PCP - GeneralInternal Medicine02/16/25Team MemberRelationshipSpecialtyStart Date End Date Daksha Moon DO [address] [place] [address] PCP - GeneralInternal Medicine02/16/25Team MemberRelationshipSpecialtyStart Date End Date Daksha Moon MD [address] [place] [address] PCP - GeneralInternal Medicine04/13/25Team MemberRelationshipSpecialtyStart Date End Date Daksha Moon MD [address] [place] [address] PCP - GeneralHopi Health Care Centernal Medicine04/13/25Team MemberRelationshipSpecialtyStart Date End Date Daksha Moon DO [address] [place] [address] PCP - GeneralHopi Health Care Centernal Medicine02/16/25Te MemberRelationshipSpecialtyStart Date End Date Daksha Moon DO [address] [place] [address] PCP - GeneralHopi Health Care Centernal Medicine02/16/25Team MemberRelationshipSpecialtyStart Date End Date Daksha Moon MD [address] [place] [address] PCP - GeneralHopi Health Care Centernal Medicine04/13/25Te MemberRelationshipSpecialtyStart Date End Date Daksha Moon MD [address] [place] [address] PCP - GeneralInternal Medicine04/13/25 Reason for Visit (unrecogniz ed section and content) ReasonCommentsSinus ProblemNot going away-3 weeks-Aug 25- Neg Covid 08/25, ear painReasonCommentsSinus ProblemCough, congestionsReasonCommentsMed RefillReason QpiodspsPnqmvpdipdYqkgseZamuvvuhDuckad-ihZsyphaAskycmquOnpvmp-ixRgqgid care - viral infection mar 28 , also has some questionsReasonCommentsNose Problem Chronic sinusitis/nasal septal deviation CT sinus [facility] 04/09/25Specialty Diagnoses / ProceduresReferred By ContactReferred To ContactOtolaryngology Diagnoses Chronic sinusitis, unspecified location Nasal septal deviation Procedures 87 ([email or web address]) - Ambulatory referral to ENT (Non-[facility]) Priyank Vance MD [address] [facility], [place] [address] Phone: tel: fax: Edy Andrews MD [address] [place] [address] Phone: tel: fax: Referral IDStatusReasonStart DateExpiration DateVisits RequestedVisits [id number] sinus/ breathing ReasonCommentsMed Change RequestReasonCommentsmawReasonCommentsSinusitisFollow up CT [facility] 05/14/25 Goals (unrecognized section and content) Goals may be documented in a n alternate section FOR RECORDS PERTAINING TO PATIENTS WHO ARE OR HAVE BEEN ENROLLED IN A CHEMICAL DEPENDENCY/SUBSTANCEABUSE PROGRAM, SOME INFORMATION MAY BE OMITTED. This clinical summary was aggregated from multiple sources. Caution should be exercised in using it in the provision of clinical care. This summary normalizes information from multiple sources, and as a consequence, information in this document may materially change the coding, format and clinical context of patient data. In addition, data may be omitted in some cases. CLINICAL DECISIONS SHOULD BE BASED ON THE PRIMARY CLINICAL RECORDS. [email or web address] provides no warranty or guarantee of the accuracy or completeness of information in this document.
[2025-06-29 11:25] LABS: INR 1.07; Partial Thromboplastin Time 37.0 sec (22.3-36.2); Prothrombin Time 11.2 sec (9.0-11.6)
== END 2025-06-29 10:31 | disposition home or self-care (01) ==
LOC: LAB 10:32
PROVIDERS: PCP Internal Medicine; Visit Provider Otolaryngology
DX: J32.0 Chronic maxillary sinusitis (principal); J34.2 Deviated nasal septum
CPT/HCPCS: 36415; 85610; 85730